=== PATIENT | male | born 1965 | race Caucasian/White ===

== ENCOUNTER → 2023-09-17 07:24 | Outpatient (REF) | payer MEDICARE, OTHER, SELFPAY ==
[2023-09-17 08:02] LABS: % Basophils 1.3 % (0-2); % Eosinophils 2.9 % (0-6); % Immature Granulocytes 2.1 % (0-0.5); % Lymphocytes 23.6 % (20.5-51.1); % Neutrophils 59.1 % (42.2-75.2); Absolute Basophils 0.1 10^3/uL (0-0.2); Absolute Eosinophils 0.3 10^3/uL (0-0.7); Absolute Immature Granulocytes 0.2 10^3/uL (0-0.05); Absolute Lymphocytes 2.4 10^3/uL (1.2-3.4); Absolute Monocytes 1.1 10^3/uL (0.1-0.6); Absolute Neutrophils 5.9 10^3/uL (1.4-6.5); Hemoglobin 19.4 g/dL (13.0-18.0); Mean Corp Hgb Conc. 35.3 g/dL (33.0-37.0); Mean Corpuscular Hgb 31.4 pg (27.0-31.0); Mean Corpuscular Volume 89.1 fL (80.0-94.0); Mean Platelet Volume 11.2 fL (7.4-10.4); Nucleated Red Blood Cells % 0 % (-); Platelet Count 151 10^3/uL (130-400); Red Blood Cell Count 6.17 10^6/uL (4.70-6.10); Red Cell Dist. Width 14.2 % (11.5-14.5)
[2023-09-17 08:30] LABS: ALT (SGPT) 32 U/L (0-50); AST (SGOT) 23 U/L (17-59); Alkaline Phosphatase 55 U/L (38-126); Blood Urea Nitrogen 16 mg/dl (9-20); Carbon Dioxide 21 mmol/L (22-30); Chloride 99 mmol/L (98-107); Glucose 170 mg/dl (70-99); HDL Cholesterol 28 mg/dl; LDL Cholesterol, Calculated 84 mg/dl; Potassium 4.5 mmol/L (3.5-5.1); Sodium 134 mmol/L (135-145); Total Bilirubin 0.7 mg/dl (0.2-1.3); Total Cholesterol 171 mg/dl (50-199); Total Protein 6.8 g/dl (6.3-8.2); Triglyceride 298 mg/dl (10-149); Very Low Density Lipoprotein 59 mg/dl (0-30); eGFR > 60.00
[2023-09-17 08:56] LABS: Glycohemoglobin (HgbA1c) 8.2 % (4.0-5.6)
[2023-09-17 09:04] LABS: Cortisol, Random 17.2 ug/dl
[2023-09-18 21:43] LABS: Adrenocorticotropic Hormone 18.1 pg/mL (7.2-63.3)
[2023-09-18 22:07] LABS: % Free Testosterone 2.5 % (1.6-2.9); Free Testosterone 170 pg/mL (47-244); Sex Hormone Binding Globulin 19 nmol/L (19-76); Total Testosterone 678 ng/dL (300-890)
== END ==
LOC: REG 07:24
PROVIDERS: ATTENDING PHYSICIAN Physician Assistant; FAMILY PHYSICIAN Family Medicine
DX: E29.1 Testicular hypofunction (principal); E11.9 Type 2 diabetes mellitus without complications; J44.9 Chronic obstructive pulmonary disease, unspecified
CPT/HCPCS: 36415; 80053; 80061; 82024; 82533; 83036; 83835; 84270; 84402; 84403; 85025

== ENCOUNTER → 2023-11-11 08:50 | Outpatient (REF) | payer MEDICARE, OTHER, SELFPAY ==
[2023-11-11 10:23] LABS: Hematocrit 54.8 % (39.0-52.0); Hemoglobin 19.1 g/dL (13.0-18.0); Mean Corp Hgb Conc. 34.9 g/dL (33.0-37.0); Mean Corpuscular Volume 88.8 fL (80.0-94.0); Mean Platelet Volume 11.5 fL (7.4-10.4); Platelet Count 188 10^3/uL (130-400); Red Blood Cell Count 6.17 10^6/uL (4.70-6.10); Red Cell Dist. Width 14.3 % (11.5-14.5); White Blood Cell Count 12.8 10^3/uL (4.8-10.8)
[2023-11-11 10:39] LABS: Blood Urea Nitrogen 29 mg/dl (9-20); Calcium 9.8 mg/dl (8.4-10.2); Carbon Dioxide 26 mmol/L (22-30); Chloride 97 mmol/L (98-107); Glucose 167 mg/dl (70-99); Potassium 4.2 mmol/L (3.5-5.1); Sodium 131 mmol/L (135-145); eGFR > 60.00
== END ==
LOC: SDSPAT 08:50
PROVIDERS: ATTENDING PHYSICIAN Surgery; FAMILY PHYSICIAN Family Medicine; OTHER PHYSICIAN Internal Medicine Cardiovascular Disease
DX: Z01.818 Encounter for other preprocedural examination (principal)
CPT/HCPCS: 36415; 80048; 85027; 93005

== ENCOUNTER 2023-11-12 09:11 | Outpatient (RCR) | payer MEDICARE, OTHER, SELFPAY | END 2023-11-12 23:59 | disposition home or self-care (01) | LOC: RPT 09:11 | PROVIDERS: ATTENDING PHYSICIAN Family Medicine | DX: R53.81 Other malaise (principal); Z73.6 Limitation of activities due to disability | CPT/HCPCS: 97110; 97112; 97163; 97530 ==

== ENCOUNTER 2023-11-19 10:05 | Outpatient (RCR) | payer MEDICARE, OTHER, SELFPAY | END 2023-11-19 11:06 | disposition home or self-care (01) | LOC: RPT 10:05 | PROVIDERS: ATTENDING PHYSICIAN Family Medicine | DX: R53.1 Weakness (principal); R53.81 Other malaise; Z73.6 Limitation of activities due to disability | CPT/HCPCS: 97110; 97112 ==

== ENCOUNTER → 2023-12-16 06:50 | Outpatient (REF) | payer MEDICARE, OTHER, SELFPAY ==
[2023-12-16 07:54] LABS: % Basophils 1.3 % (0-2); % Eosinophils 2.4 % (0-6); % Immature Granulocytes 1.3 % (0-0.5); % Lymphocytes 19.9 % (20.5-51.1); % Monocytes 11.2 % (1.7-9.3); % Neutrophils 63.9 % (42.2-75.2); Absolute Basophils 0.1 10^3/uL (0-0.2); Absolute Eosinophils 0.2 10^3/uL (0-0.7); Absolute Immature Granulocytes 0.1 10^3/uL (0-0.05); Absolute Monocytes 1.1 10^3/uL (0.1-0.6); Absolute Neutrophils 6.5 10^3/uL (1.4-6.5); Hematocrit 45.2 % (39.0-52.0); Mean Corp Hgb Conc. 35.4 g/dL (33.0-37.0); Mean Corpuscular Hgb 30.3 pg (27.0-31.0); Mean Corpuscular Volume 85.6 fL (80.0-94.0); Mean Platelet Volume 11.7 fL (7.4-10.4); Nucleated Red Blood Cells % 0 % (-); Platelet Count 221 10^3/uL (130-400); Red Blood Cell Count 5.28 10^6/uL (4.70-6.10); Red Cell Dist. Width 14.2 % (11.5-14.5); White Blood Cell Count 10.2 10^3/uL (4.8-10.8)
[2023-12-16 08:12] LABS: ALT (SGPT) 18 U/L (0-50); AST (SGOT) 16 U/L (17-59); Albumin 4.3 g/dl (3.5-5.0); Alkaline Phosphatase 57 U/L (38-126); Blood Urea Nitrogen 16 mg/dl (9-20); Calcium 9.8 mg/dl (8.4-10.2); Carbon Dioxide 23 mmol/L (22-30); Chloride 100 mmol/L (98-107); Glucose 236 mg/dl (70-99); HDL Cholesterol 31 mg/dl; LDL Cholesterol, Calculated 104 mg/dl; Potassium 4.6 mmol/L (3.5-5.1); Sodium 134 mmol/L (135-145); Total Bilirubin 0.3 mg/dl (0.2-1.3); Total Cholesterol 150 mg/dl (50-199); Total Protein 6.9 g/dl (6.3-8.2); Triglyceride 78 mg/dl (10-149); Very Low Density Lipoprotein 15 mg/dl (0-30); eGFR > 60.00
[2023-12-16 09:15] LABS: Glycohemoglobin (HgbA1c) 8.7 % (4.0-5.6)
[2023-12-16 11:23] LABS: Vitamin D, 25-OH*** 66.3 ng/mL (30-80)
[2023-12-18 04:28] LABS: % Free Testosterone 2.4 % (1.6-2.9); Free Testosterone 185 pg/mL (47-244); Sex Hormone Binding Globulin 22 nmol/L (19-76); Total Testosterone 764 ng/dL (300-890)
== END ==
LOC: REG 06:50
PROVIDERS: ATTENDING PHYSICIAN Internal Medicine Endocrinology, Diabetes & Metabolism; FAMILY PHYSICIAN Family Medicine
DX: E29.1 Testicular hypofunction (principal); E11.65 Type 2 diabetes mellitus with hyperglycemia; I10 Essential (primary) hypertension; E55.9 Vitamin D deficiency, unspecified
CPT/HCPCS: 36415; 80053; 80061; 82306; 83036; 84270; 84402; 84403; 85025

== ENCOUNTER → 2024-01-27 09:52 | Outpatient (REF) | payer MEDICARE, OTHER, SELFPAY | LOC: HWEVLT 09:52 | PROVIDERS: ATTENDING PHYSICIAN Radiology Vascular & Interventional Radiology | DX: I83.893 Varicose veins of bilateral lower extremities with other complications (principal) | CPT/HCPCS: 93970 ==

== ENCOUNTER → 2024-03-29 06:55 | Outpatient (REF) | payer MEDICARE, OTHER, SELFPAY ==
[2024-03-29 07:39] LABS: % Basophils 0.9 % (0-2); % Eosinophils 2.1 % (0-6); % Immature Granulocytes 1.4 % (0-0.5); % Lymphocytes 22.3 % (20.5-51.1); % Monocytes 12.8 % (1.7-9.3); % Neutrophils 60.5 % (42.2-75.2); Absolute Basophils 0.1 10^3/uL (0-0.2); Absolute Eosinophils 0.2 10^3/uL (0-0.7); Absolute Immature Granulocytes 0.2 10^3/uL (0-0.05); Absolute Lymphocytes 2.6 10^3/uL (1.2-3.4); Absolute Monocytes 1.5 10^3/uL (0.1-0.6); Hematocrit 51.5 % (39.0-52.0); Hemoglobin 18.5 g/dL (13.0-18.0); Mean Corp Hgb Conc. 35.9 g/dL (33.0-37.0); Mean Corpuscular Hgb 30.1 pg (27.0-31.0); Mean Corpuscular Volume 83.9 fL (80.0-94.0); Mean Platelet Volume 11.3 fL (7.4-10.4); Nucleated Red Blood Cells % 0 % (-); Platelet Count 249 10^3/uL (130-400); Red Blood Cell Count 6.14 10^6/uL (4.70-6.10); Red Cell Dist. Width 14.4 % (11.5-14.5); White Blood Cell Count 11.6 10^3/uL (4.8-10.8)
[2024-03-29 08:33] LABS: PSA, Total - Screen 0.66 ng/ml (0.0-4.0)
[2024-03-29 08:45] LABS: ALT (SGPT) 22 U/L (0-50); AST (SGOT) 23 U/L (17-59); Alkaline Phosphatase 79 U/L (38-126); Blood Urea Nitrogen 30 mg/dl (9-20); Calcium 10.8 mg/dl (8.4-10.2); Carbon Dioxide 23 mmol/L (22-30); Chloride 102 mmol/L (98-107); Glucose 195 mg/dl (70-99); HDL Cholesterol 32 mg/dl; LDL Cholesterol, Calculated 142 mg/dl; Potassium 4.6 mmol/L (3.5-5.1); Sodium 137 mmol/L (135-145); Total Bilirubin 1.3 mg/dl (0.2-1.3); Total Cholesterol 204 mg/dl (50-199); Total Protein 7.9 g/dl (6.3-8.2); Triglyceride 151 mg/dl (10-149); Very Low Density Lipoprotein 30 mg/dl (0-30); eGFR > 60.00
[2024-03-29 10:53] LABS: Glycohemoglobin (HgbA1c) 7.5 % (4.0-5.6)
== END ==
LOC: REG 06:55
PROVIDERS: ATTENDING PHYSICIAN Physician Assistant; FAMILY PHYSICIAN Family Medicine
DX: E29.1 Testicular hypofunction (principal); E11.65 Type 2 diabetes mellitus with hyperglycemia; R97.20 Elevated prostate specific antigen [PSA]; Z12.5 Encounter for screening for malignant neoplasm of prostate
CPT/HCPCS: 36415; 80053; 80061; 83036; 85025; G0103

== ENCOUNTER → 2024-06-15 08:08 | Outpatient (REF) | payer MEDICARE, OTHER, SELFPAY | LOC: HWEVLT 08:08 | PROVIDERS: ATTENDING PHYSICIAN Radiology Diagnostic Radiology | DX: I83.892 Varicose veins of left lower extremity with other complications (principal) | CPT/HCPCS: 36478; C1769 ==

== ENCOUNTER → 2024-06-28 11:02 | Outpatient (REF) | payer MEDICARE, OTHER, SELFPAY | LOC: HWEVLT 11:02 | PROVIDERS: ATTENDING PHYSICIAN Radiology Vascular & Interventional Radiology | DX: I83.892 Varicose veins of left lower extremity with other complications (principal) | CPT/HCPCS: 93971 ==

== ENCOUNTER → 2024-08-10 07:34 | Outpatient (REF) | payer MEDICARE, OTHER, SELFPAY ==
[2024-08-10 09:12] LABS: % Basophils 1.2 % (0-2); % Eosinophils 2.5 % (0-6); % Immature Granulocytes 1.5 % (0-0.5); % Lymphocytes 22.9 % (20.5-51.1); % Monocytes 11.3 % (1.7-9.3); % Neutrophils 60.6 % (42.2-75.2); Absolute Basophils 0.1 10^3/uL (0-0.2); Absolute Eosinophils 0.2 10^3/uL (0-0.7); Absolute Immature Granulocytes 0.1 10^3/uL (0-0.05); Absolute Lymphocytes 1.7 10^3/uL (1.2-3.4); Absolute Monocytes 0.9 10^3/uL (0.1-0.6); Absolute Neutrophils 4.6 10^3/uL (1.4-6.5); Hematocrit 49.6 % (39.0-52.0); Hemoglobin 17.5 g/dL (13.0-18.0); Mean Corp Hgb Conc. 35.3 g/dL (33.0-37.0); Mean Corpuscular Hgb 30.3 pg (27.0-31.0); Mean Platelet Volume 11.1 fL (7.4-10.4); Nucleated Red Blood Cells % 0 % (-); Platelet Count 203 10^3/uL (130-400); Red Blood Cell Count 5.77 10^6/uL (4.70-6.10); Red Cell Dist. Width 13.4 % (11.5-14.5); White Blood Cell Count 7.5 10^3/uL (4.8-10.8)
[2024-08-10 09:45] LABS: Protein/creatinine Ratio 0.1; Urine Protein 9 mg/dl
[2024-08-10 09:50] LABS: Microalbumin, Random Urine 3.6 mg/dl (0.6-1.7); Microalbumin/creatinine Ratio 30.3 mg/g
[2024-08-10 10:36] LABS: Vitamin D, 25-OH*** 43.7 ng/mL (30-80)
[2024-08-10 10:41] LABS: Glycohemoglobin (HgbA1c) 10.1 % (4.0-5.6)
[2024-08-10 10:50] LABS: PSA, Total - Screen 0.29 ng/ml (0.0-4.0)
[2024-08-10 10:58] LABS: ALT (SGPT) 26 U/L (0-50); AST (SGOT) 20 U/L (17-59); Albumin 4.7 g/dl (3.5-5.0); Alkaline Phosphatase 54 U/L (38-126); Blood Urea Nitrogen 17 mg/dl (9-20); Calcium 10.1 mg/dl (8.4-10.2); Carbon Dioxide 20 mmol/L (22-30); Chloride 98 mmol/L (98-107); Glucose 285 mg/dl (70-99); HDL Cholesterol 32 mg/dl; LDL Cholesterol, Calculated 83 mg/dl; Potassium 4.7 mmol/L (3.5-5.1); Sodium 135 mmol/L (135-145); Total Bilirubin 0.5 mg/dl (0.2-1.3); Total Cholesterol 142 mg/dl (50-199); Total Protein 7.5 g/dl (6.3-8.2); Triglyceride 137 mg/dl (10-149); Very Low Density Lipoprotein 27 mg/dl (0-30); eGFR > 60.00
[2024-08-11 09:17] LABS: % Free Testosterone 2.2 % (1.6-2.9); Free Testosterone 12 pg/mL (47-244); Sex Hormone Binding Globulin 19 nmol/L (19-76); Total Testosterone 54 ng/dL (300-720)
== END ==
LOC: REG 07:34
PROVIDERS: ATTENDING PHYSICIAN Physician Assistant
DX: E11.65 Type 2 diabetes mellitus with hyperglycemia (principal); E29.1 Testicular hypofunction; R97.20 Elevated prostate specific antigen [PSA]; E55.9 Vitamin D deficiency, unspecified
CPT/HCPCS: 36415; 80053; 80061; 82043; 82306; 82570; 83036; 84156; 84270; 84402; 84403; 85025; G0103

== ENCOUNTER 2024-08-31 23:46 | Inpatient (IN) | payer MEDICARE, OTHER, SELFPAY ==
[2024-08-31 18:17] VITALS: BP 148/85
[2024-08-31 18:47] LABS: % Basophils 0.6 % (0-2); % Eosinophils 0.1 % (0-6); % Immature Granulocytes 0.7 % (0-0.5); % Lymphocytes 6.4 % (20.5-51.1); % Neutrophils 83.2 % (42.2-75.2); Absolute Basophils 0.1 10^3/uL (0-0.2); Absolute Immature Granulocytes 0.1 10^3/uL (0-0.05); Absolute Lymphocytes 0.6 10^3/uL (1.2-3.4); Absolute Monocytes 0.9 10^3/uL (0.1-0.6); Absolute Neutrophils 8.1 10^3/uL (1.4-6.5); Hemoglobin 15.9 g/dL (13.0-18.0); Mean Corp Hgb Conc. 36.1 g/dL (33.0-37.0); Mean Corpuscular Hgb 31.2 pg (27.0-31.0); Mean Corpuscular Volume 86.3 fL (80.0-94.0); Mean Platelet Volume 11.6 fL (7.4-10.4); Nucleated Red Blood Cells % 0 % (-); Platelet Count 125 10^3/uL (130-400); Red Cell Dist. Width 13.2 % (11.5-14.5); White Blood Cell Count 9.8 10^3/uL (4.8-10.8)
[2024-08-31 18:57] LABS: ALT (SGPT) 31 U/L (0-50); AST (SGOT) 30 U/L (17-59); Albumin 4.5 g/dl (3.5-5.0); Alkaline Phosphatase 59 U/L (38-126); Blood Urea Nitrogen 17 mg/dl (9-20); Calcium 9.1 mg/dl (8.4-10.2); Carbon Dioxide 21 mmol/L (22-30); Chloride 96 mmol/L (98-107); Glucose 276 mg/dl (70-99); Potassium 4.2 mmol/L (3.5-5.1); Sodium 130 mmol/L (135-145); Total Bilirubin 0.6 mg/dl (0.2-1.3); Total Protein 7.3 g/dl (6.3-8.2); eGFR > 60.00
[2024-08-31 19:03] LABS: COVID-19 Antigen Negative (Negative)
[2024-08-31 19:06] LABS: NT-proBNP 343 pg/ml
[2024-08-31] MEDS: TYLENOL 1000 MG PO (21:10)
[2024-08-31] MEDS: VIBRAMYCIN 100 MG PO (21:10)
--- NOTE | 2024-08-31 21:10 | ED.GENMED ---
History of Present Illness
General
Chief Complaint: Breathing Problem
Source: patient
Exam Limitations: none
Time Seen by Provider: 08/31/24 20:53
Nursing documentation reviewed up to this point in time: agreed with
History of Present Illness
History of Present Illness:
59-year-old male with 2 days of fever cough congestion malaise he is a smoker roommate sick with similar, no abdominal pain eating and drinking okay
Past History
Past History
ED Past Medical History: Asthma, COPD, GERD, HTN, Hypercholesterolemia, NIDDM, Renal failure (On Dialysis in fall 2016 for 2 mos, renal insuff), Psychiatric (depression, PTSD) and Other (Rhabdomyalysis, Overdose, Intestinal obstruction, PNA, UTI,
Ulcers, TBI)
ED Past Surgical History: Other (Unknown)
Patient has exhibited threatening behavior?: No
PSI?: No
Social History
Tobacco: Smoker
Alcohol: None
Drug: Cocaine and Narcotics
Personal: Partner
Living: with roommate
Employment: Retired
Family History
Family History: Other
Review of Systems
Review of Systems
All Other Systems: ROS reviewed and negative except as documented in HPI and ROS
Constitutional: Reports fever and fatigue
Respiratory: Reports cough and trouble breathing
ABD/GI: Reports no symptoms
: Reports no symptoms
Musculoskeletal: Reports no symptoms
Skin: Reports no symptoms
Neurological: Reports weakness
Hematologic/Lymphatic: Reports no symptoms
Phy Exam
Physical Exam
Physical Exam:
Physical Exam
General: 59-year-old male coughing warm to touch audibly wheeze
Neck: Lips are dry
Heart: Tacky cardiac
Lungs: Wheeze rhonchi diffusely worse of the right
Abdomen: Not tender
Neuro: alert and oriented. no focal neurological deficits
Skin: no rash
Psychiatric: well kept. interactive and cooperative
Extremities: no edema. no calf tenderness
Scores
Heart Failure Risk
Heart Failure Risk Score: Not Applicable
Sepsis
Sepsis Screening
Sepsis Assessment: Sepsis Ruled Out
Sepsis Screen
Sepsis Screen: Sepsis Ruled Out
Date: 08/31/24
Time: 21:45
Course
Orders/Labs/Results
Orders:
Orders
08/31/24 18:20
Chest [CR Chest - 2 Views ] Urgent
Comment:
Reason For Exam: cough
08/31/24 18:33
Complete Blood Count/With Diff Urgent
Comprehensive Metabolic Panel Urgent
NT-proBNP Urgent
08/31/24 18:35
COVID-19 Antigen Urgent
Source: Nasal Swab
Influenza A+B Rapid Molecular Urgent
SANDRA Source: Nasal Swab
Specimen Description:
08/31/24 21:03
Cardiac Monitoring- Treatment ONCE
IV Insert/Care/Rem.- Treatment PRN
0.9% Sodium Chloride 1000 ml [Nss] 1,000 ml IV BOLUS
Acetaminophen [Tylenol] 1,000 mg PO NOW STA
CefTRIAXone [Rocephin] 1,000 mg IV NOW STA
Dexamethasone Sod Phosphate [Decadron] 10 mg IV NOW STA
Doxycycline [Vibramycin] 100 mg PO NOW STA
Ipratropium/Albuterol Sulfate [Duoneb] 3 ml INH R NOW STA
08/31/24 21:22
Lactic Acid Q4H
Comment: CANCEL 2nd LACTIC ACID IF 1st LACTIC ACID IS LESS THAN 2
Blood Culture Q30M
SANDRA Source: Blood/Venous
Specimen Description:
08/31/24 21:45
Blood Culture Q30M
SANDRA Source: Blood/Venous
Specimen Description:
09/01/24 01:15
Lactic Acid Q4H
Comment: CANCEL 2nd LACTIC ACID IF 1st LACTIC ACID IS LESS THAN 2
Abnormal Lab Results
08/31/24
18:33
MCH 31.2 H pg
(27.0-31.0)
Plt Count 125 L 10^3/uL
(130-400)
MPV 11.6 H fL
(7.4-10.4)
Abs Immat Gran (auto) 0.1 H 10^3/uL
(0-0.05)
Absolute Neuts (auto) 8.1 H 10^3/uL
(1.4-6.5)
Absolute Lymphs (auto) 0.6 L 10^3/uL
(1.2-3.4)
Absolute Monos (auto) 0.9 H 10^3/uL
(0.1-0.6)
Immature Gran % 0.7 H %
(0-0.5)
Neutrophils % 83.2 H %
(42.2-75.2)
Lymphocytes % 6.4 L %
(20.5-51.1)
Sodium 130 L mmol/L
(135-145)
Chloride 96 L mmol/L
(98-107)
Carbon Dioxide 21 L mmol/L
(22-30)
Glucose 276 H mg/dl
(70-99)
08/31/24 18:33
08/31/24 18:33
Vital Signs
Initial and Last Documented VS:
Initial Vital Signs
Temp Pulse Resp BP Pulse Ox
100.4 F H 118 26 148/85 91
08/31/24 18:17 08/31/24 18:17 08/31/24 18:17 08/31/24 18:17 08/31/24 18:17
Last Documented Vital Signs
Temp Pulse Resp BP Pulse Ox
100.4 F H 108 31 148/85 91
08/31/24 18:17 08/31/24 21:27 08/31/24 21:27 08/31/24 18:17 08/31/24 21:28
MDM/Problems Addressed
Differential Diagnosis Includes:
Pneumonia bronchitis influenza viral syndrome
MDM/Problems Addressed:
Cough shortness of breath with
Chronic conditions affecting care: HTN, Asthma and Neurological disorder
Acute Exacerbation and/or Progression of Chronic Illness: HTN, Asthma and Neurological disorder
*Radiology
Radiology exam reviewed: radiology read reviewed
*Pulse Oximetry
Patient hypoxic: yes
Comment: 87
*Sewer Separation Designer Interpretation
Rate: tachycardiac
Interpretation: abnormal
Heart Rate: 118
Rhythm: sinus
*Critical Care Note
Total Time (30-74mins, 75-104mins- exclusive of procedures): 15
Update Note
Update Note:
Patient with multiple chronic conditions with community-acquired pneumonia order line pulse ox plan will be nebs fluids steroids and antibiotics follow closely
9:40 PM reevaluation patient still tachypneic tachycardic desaturated to 87% on room that will require admission
ED Attending Note
-
Portions of this chart may have been created with voice recognition software.� Occasional wrong word or��sound alike� substitutions may have occurred due to the inherent limitations of voice recognition software.
Discharge Plan
Departure
Patient Disposition: Admit
Date of Disposition: 08/31/24
Time of Disposition: 21:44
Admit to: Med/Surg
Presentation/result/management discussed w/ accepting MD/DO: Hospitalist
Patient with high blood pressure during this ER visit?: No
Condition: Fair
Covid-19: Negative COVID-19
Discharge Problem:
Chronic obstructive pulmonary disease, Pneumonia, Acute respiratory failure with hypoxia
Prescriptions:
No Action
insulin lispro [Humalog KwikPen Insulin] 100 unit/mL Insulin Pen
10 unit SC AC
Janumet 50-1,000 mg Tablet
1 tab PO BID@0800,1700
testosterone cypionate 200 mg/mL Kit
400 mg IM Q2W
cyclobenzaprine 10 mg tablet
10 mg PO TID PRN (Reason: muscle spasms)
amlodipine 5 mg tablet
5 mg PO DAILY
aspirin 81 mg Tablet,Delayed Release (Dr/Ec)
81 mg PO DAILY
paroxetine HCl 30 mg tablet
30 mg PO DAILY
lorazepam 1 mg tablet
1 mg PO DAILY PRN (Reason: anxiety)
Patient Comments:
05/18/2023: last filled 01/12/23, 30 tabs for 30 days from [facility]
albuterol sulfate 90 mcg/actuation Hfa Aerosol Inhaler
2 inh INHALATION R Q4 PRN (Reason: sob/wheezing)
bupropion HCl 300 mg tablet extended release 24 hr
300 mg PO DAILY
buprenorphine-naloxone 8-2 mg film
2.5 film sublingual DAILY
Patient Comments:
05/18/2023: last filled 04/20/23, 75 film for 30 days from [facility]
Caplyta 42 mg capsule
42 mg PO DAILY
Patient Comments:
04/13/2023: last filled 02/12/23, 30 tabs for 30 days from [facility]
methylphenidate HCl [Concerta] 54 mg tablet extended release 24hr
54 mg PO DAILY PRN (Reason: focus)
Patient Comments:
05/18/2023: last filled 04/12/23, 30 tabs for 30 days from [facility]
tamsulosin 0.4 mg capsule
0.4 mg PO HS
budesonide-formoterol [Symbicort] 160-4.5 mcg/actuation HFA aerosol inhaler
2 puff INHALATION R BID
cefdinir 300 mg Capsule
300 mg PO Q12 3 Days Qty: 6 0RF
benzonatate 100 mg Capsule
200 mg PO TIDPRN PRN (Reason: cough) Qty: 7 0RF
Levemir FlexPen 100 unit/mL (3 mL) insulin pen
10 unit SC HS Qty: 15 0RF
prednisone 10 mg Tablet
See Rx Instructions .ROUTE .COMPLEX Qty: 30 0RF
Rx Instructions:
Take By Mouth:
40 mg daily x3 days, 30 mg daily x3 days,
20 mg daily x3 days, 10 mg daily x3 days.
Referrals:
UNKNOWN - PT DOES,NOT KNOW [Family Provider] -
Interventions
Interventions:
*Risk Screen - Suicide Last Done: 08/31/24 18:17
*General Assessment Last Done: 08/31/24 18:17
*Neglect/Abuse Screening Last Done: 08/31/24 18:17
ED- Fall Risk Assessment Last Done: 08/31/24 21:28
*ED COVID-19 Vaccine History Last Done: 08/31/24 18:17
ED- Cardiac Assessment Last Done: 08/31/24 21:28
ED- Pulmonary Assessment Last Done: 08/31/24 21:28
Discharge Date and Time
Print Language: FRISIAN
[2024-08-31] MEDS: DUONEB 3 ML INH (21:11)
[2024-08-31] MEDS: DECADRON 10 MG IV (21:23)
[2024-08-31] MEDS: NSS 1000 IV (21:23)
[2024-08-31] MEDS: ROCEPHIN 1000 MG IV (21:24)
[2024-08-31 21:27] VITALS: BP 120/75
[2024-08-31 21:28] VITALS: BMI 34.9
[2024-08-31 21:47] LABS: Lactic Acid 1.2 mmol/L (0.7-2.0)
[2024-08-31 22:00] VITALS: BP 128/76
[2024-08-31] MEDS: FLUSH (NSS) 1 FLUSH IV (22:11)
--- NOTE | 2024-08-31 22:17 | HPS.HSE ---
Family Physician
-
Family Physician: NOT KNOW UNKNOWN - PT DOES
Chief Complaint
-
fever, cough and congestion
History of Present Illness
Mr. Lenin Saldivar is a 59 man, current smoker with hx asthma/COPD, GERD, HTN, HLD, NIDDDM, CKD, depression presents to the ER with fevers, cough and congestion.
He smokes 1/2 PPD and is interested in quitting. + chills, no fevers. + productive cough, feels mucus is stuck. No chest pain, + chest tightness. No nausea/vomiting/diarrhea. No abdominal pain. Inhalers at home weren't helping, feels better
here int he ER. No LE swelling.
Medical History
Past Medical History
Past Medical History: Reports Other (asthma, COPD, sleep apnea, hypertension, GERD, hypercholesteremia, IDDM, depression, PTSD, obesity, chronic pain from chronic Lyme disease, BPH, opiate dependence)
Past Surgical History: Reports None
Social History
Tobacco: Smoker (1 pack/day for 40+ years)
Alcohol: None
Drug: None
Living: With Roomate
Family History
Family History: Not pertinent
Allergies / Home Medications
Allergies reflects when Allergies were last updated in [facility].
Home Medications with original date entered in [facility]
Allergy/Medication List:
Allergies
Allergy/AdvReac Type Severity Reaction Status Date / Time
adhesive Allergy itching/rash Verified 08/31/24 18:19
- paper
tape
gabapentin Allergy Swelling Verified 08/31/24 18:19
hydrochlorothiazide Allergy blisters Verified 08/31/24 18:19
on head
pregabalin Allergy scabs on Verified 08/31/24 18:19
head
Home Medications
insulin lispro 100 unit/mL subcutaneous pen (Humalog KwikPen (U-100) Insulin) 14 unit SC AC Diabetes 07/17/22
sitagliptin phosphate 50 mg-metformin 1,000 mg tablet (Janumet) 1 tab PO BID@0800,1700 Diabetes 07/17/22
albuterol sulfate 90 mcg/actuation aerosol inhaler 2 inh inhalation R Q4 PRN sob/wheezing 03/11/23
amlodipine 5 mg tablet 5 mg PO DAILY Blood Pressure 03/11/23
aspirin 81 mg tablet,delayed release 81 mg PO DAILY Blood Clot Prevention/Tx 03/11/23
buprenorphine 8 mg-naloxone 2 mg sublingual film 2.5 film sublingual DAILY Substance Abuse 03/11/23
bupropion HCl 300 mg 24 hr tablet, extended release 300 mg PO DAILY Depression 03/11/23
cyclobenzaprine 10 mg tablet 10 mg PO TID PRN muscle spasms 03/11/23
lorazepam 1 mg tablet 1 mg PO DAILY PRN anxiety 03/11/23
lumateperone 42 mg capsule (Caplyta) 42 mg PO DAILY Depression 03/11/23
paroxetine HCl 30 mg tablet 30 mg PO DAILY Depression 03/11/23
budesonide-formoterol HFA 160 mcg-4.5 mcg/actuation aerosol inhaler (Symbicort) 2 puff inhalation R BID asthma/COPD 05/18/23
methylphenidate HCl 54 mg tablet,extended release 24 hr (Concerta) 54 mg PO DAILY PRN focus 05/18/23
insulin detemir U-100 100 unit/mL (3 mL) subcutaneous pen (Levemir FlexPen) 10 unit (0.1 mL) SC HS #15 mL 05/23/23
Review of Systems
-
History Source: Patient
A 12 point ROS was completed and negative except as noted: Yes
Physical Exam
Vital Signs
Vital Signs
Temp Pulse Resp BP Pulse Ox
100.4 F H 107 27 128/76 90
08/31/24 18:17 08/31/24 22:00 08/31/24 22:00 08/31/24 22:00 08/31/24 22:00
Physical Exam
General: Other (appears fatigued, mildly tachypneic )
HEENT: PERRLA
Respiratory: Wheezes
Cardiac: S1/S2 and Regular Rhythm
GI: Soft and Non Tender
Musculoskeletal: No Edema
Skin: Warm and Dry; No Rash
Neuro: AO x 3
Psych: Calm
Laboratory Results
-
08/31/24 18:33
08/31/24 18:33
Laboratory Results
Lactic Acid 1.2 mmol/L (0.7-2.0) 08/31/24 21:22
Total Bilirubin 0.6 mg/dl (0.2-1.3) 08/31/24 18:33
AST 30 U/L (17-59) 08/31/24 18:33
ALT 31 U/L (0-50) 08/31/24 18:33
Alkaline Phosphatase 59 U/L (38-126) 08/31/24 18:33
Data Reviewed
-
Diagnostic Radiology: Report Reviewed by me
Lab Data: Labs Reviewed by me
Impression/Plan
-
Mr. Lenin Saldivar is a 59 man, current smoker with hx asthma/COPD, GERD, HTN, HLD, NIDDM, CKD, depression presents to the ER with fevers, cough and congestion.
Triage VS: T 100.4, P 118, RR 26, BP 148/85, SpO2 91%
LABS: WBC 9.8, Hg 15.9, PLT 125, Na 130, K+ 4.2, Cl 96, CO2 21, BUN 17, Cr 0.9, glucose 276, Lactate 1.2, T. Bili 0.6, AST 30, ALT 31, Alk Phos 59, BNP 343
Covid negative
Influenza Negative
CXR
IMPRESSION:
Right basilar pneumonia.
MAR: Tylenol, Ceftriaxone/Doxy, Decadron, Duonebs
Acute COPD Exacerbation
CAP
Daily Smoker
Hypoxic Resp Failure requiring 5L
-admit to telemetry
-O2 support as needed
-IV Decadron, Duonebs
-Ceftriaxone/Doxy
-Acapella, Mucinex
-Sputum Culture
-patient interested in stopping smoking, refusing nicotine patch here
IDDM
-STRETCHER DRIER OPERATOR Levemir 10 units hs; lower dose lispro to start 5 units AC - adjust as needed
-ISS
-hold STRETCHER DRIER OPERATOR Janumet for now
Hyponatremia
-follow up urine studies
-fluid restrict for now
Essential HTN - STRETCHER DRIER OPERATOR Amlodipine
GERD
Depression - STRETCHER DRIER OPERATOR Paroxetine, Bupropion, Caplyta; PRN Lorazepam
Hx opiate dependence - STRETCHER DRIER OPERATOR Suboxone
DVT PPx Lovenox subQ
FULL CODE
76 minutes spent on patient care
[2024-08-31 23:00] VITALS: BP 132/79
[2024-09-01] VITALS (13 sets, daily range): BP systolic 101–154; BP diastolic 51–86; BMI 34.7; BMI 34.9
[2024-09-01] MEDS: MUCINEX PO (03:05)
[2024-09-01] MEDS: DECADRON 4 MG IV ×3 (06:36→22:11)
[2024-09-01 06:51] LABS: % Basophils 0.5 % (0-2); % Immature Granulocytes 0.6 % (0-0.5); % Lymphocytes 8.9 % (20.5-51.1); % Monocytes 7.4 % (1.7-9.3); % Neutrophils 82.6 % (42.2-75.2); Absolute Immature Granulocytes 0.1 10^3/uL (0-0.05); Absolute Lymphocytes 0.7 10^3/uL (1.2-3.4); Absolute Monocytes 0.6 10^3/uL (0.1-0.6); Absolute Neutrophils 6.8 10^3/uL (1.4-6.5); Hematocrit 44.2 % (39.0-52.0); Hemoglobin 15.5 g/dL (13.0-18.0); Mean Corp Hgb Conc. 35.1 g/dL (33.0-37.0); Mean Corpuscular Hgb 30.6 pg (27.0-31.0); Mean Corpuscular Volume 87.4 fL (80.0-94.0); Mean Platelet Volume 11.6 fL (7.4-10.4); Nucleated Red Blood Cells % 0 % (-); Platelet Count 121 10^3/uL (130-400); Red Blood Cell Count 5.06 10^6/uL (4.70-6.10); Red Cell Dist. Width 13.2 % (11.5-14.5); White Blood Cell Count 8.3 10^3/uL (4.8-10.8)
[2024-09-01 07:29] LABS: Blood Urea Nitrogen 18 mg/dl (9-20); Calcium 8.7 mg/dl (8.4-10.2); Carbon Dioxide 23 mmol/L (22-30); Chloride 100 mmol/L (98-107); Estimated Creatinine Clearance > 125 ml/min; Glucose 343 mg/dl (70-99); Sodium 136 mmol/L (135-145); eGFR > 60.00
[2024-09-01 07:36] LABS: Potassium 4.7 mmol/L (3.5-5.1)
[2024-09-01] MEDS: NORVASC 5 MG PO (08:25)
[2024-09-01] MEDS: ASPIR LOW (ENTERIC COATED) 81 MG PO (08:25)
[2024-09-01] MEDS: VIBRAMYCIN 100 MG PO ×2 (08:25→20:03)
[2024-09-01] MEDS: MUCINEX 600 MG PO ×2 (08:25→20:02)
[2024-09-01] MEDS: WELLBUTRIN XL (24 hour extended release) 300 MG PO (08:26)
[2024-09-01] MEDS: PAXIL 30 MG PO (08:26)
[2024-09-01] MEDS: DUONEB 3 ML INH ×4 (08:26→19:52)
[2024-09-01] MEDS: SUBUTEX 20 MG SL (08:27)
[2024-09-01] MEDS: SYMBICORT 160/4.5 MCG INHALER 2 PUFF INH ×2 (08:27→19:52)
[2024-09-01 08:56] LABS: Osmolality Urine 615 mOsm/kg (300-900)
[2024-09-01 09:06] LABS: Urine Sodium 74 mmol/L (30-90)
[2024-09-01 09:07] LABS: Glucose - Point of Care 282 mg/dl (70-99)
[2024-09-01] MEDS: NOVOLOG FLEXPEN 14 UNITS SC ×3 (09:11→18:23)
[2024-09-01] MEDS: NOVOLOG FLEXPEN-LOW RESISTANCE 3 UNITS SC (09:11)
[2024-09-01 12:57] LABS: Glucose - Point of Care 339 mg/dl (70-99)
[2024-09-01] MEDS: NOVOLOG FLEXPEN-LOW RESISTANCE 4 UNITS SC (13:00)
--- NOTE | 2024-09-01 14:04 | PTCARENOTE ---
Received patient from [facility]29 into [facility], pt is 93% on 5L NC, blood glucose was checked for lunch time, pt oriented to new room by RN. PT denies pain ans shortness of breath at the moment.
--- NOTE | 2024-09-01 15:43 | W.PN.HOSP.TC ---
Today's Communication/Plan
-
abx
steroids
wean o2
insulin titration
Assessment / Plan
Assessment / Plan
Physical Exam
General: NAD
HEENT: PERRLA
Respiratory: Exp Wheezes
Cardiac: S1/S2 and Regular Rhythm
GI: Soft and Non Tender
Musculoskeletal: No Edema
Skin: Warm and Dry; No Rash
Neuro: AO x 3
Psych: Calm
Acute COPD Exacerbation
CAP
Daily Smoker
Hypoxic Resp Failure requiring 5L
-admit to telemetry
-O2 support as needed
-IV Decadron, Duonebs
-Ceftriaxone/Doxy
-Acapella, Mucinex
-Sputum Culture
-patient interested in stopping smoking, refusing nicotine patch here
IDDM
-ASSOCIATE CIVIL ENGINEER Levemir increase to 12 and aspart 14 as home dose - monitor for today
-ISS
-hold ASSOCIATE CIVIL ENGINEER Janumet for now
Hyponatremia
-follow up urine studies
-fluid restrict for now
-improving
Essential HTN - ASSOCIATE CIVIL ENGINEER Amlodipine
GERD
Depression - ASSOCIATE CIVIL ENGINEER Paroxetine, Bupropion, Caplyta; PRN Lorazepam
Hx opiate dependence - ASSOCIATE CIVIL ENGINEER Suboxone
DVT PPx Lovenox subQ
FULL CODE
Anticipated Discharge: > 48 hours
Subjective/Interval History
-
Date of Service: September 01, 2024
Still with expiratory wheezing
Objective Data
-
Labs:
Laboratory Results
09/01/24
06:35
WBC 8.3
Hgb 15.5
Hct 44.2
Plt Count 121 L
Sodium 136
Potassium 4.7
Chloride 100
Carbon Dioxide 23
BUN 18
Creatinine 0.8
Glucose 343 H
Calcium 8.7
Vital Signs:
Vital Signs
Temp Pulse Resp BP Pulse Ox
97.9 F 87 20 147/69 93
09/01/24 11:29 09/01/24 11:45 09/01/24 11:45 09/01/24 11:29 09/01/24 13:57
I&O
08/31/24 09/01/24 09/02/24
06:59 06:59 06:59
Intake Total 480 / 480
Output Total 650 / 650
Balance -650 / -650 480 / 480
Review of Systems
-
History Source: Patient
All other systems: Not reviewed unless documented
Physical Exam
-
General: Well Developed, Well Nourished, Comfortable, Conversant and Obese
HEENT: Oxygen (3-4L NC)
Respiratory: Clear to Auscultation and Non Labored Respirations; Negative Wheezes or Accessory Resp Muscle Use
Cardiac: Regular Rhythm and S1/S2; Negative Murmur or Rub
GI: Soft, Nontender and Nondistended
Neuro: Awake, Alert and Oriented
Psych: Calm and Intact Judgement/Insight
Data Reviewed
-
Diagnostic Radiology: Image personally visualized and interpreted and Report Reviewed by me
Labs: Labs Reviewed by me
[2024-09-01] MEDS: TYLENOL 650 MG PO (16:16)
--- NOTE | 2024-09-01 16:45 | PN.CDI ---
CDI
- -
CDI:
Physician Documentation Request
Admit Date: 08/31/24 23:46
Dear Doctor Bo,
Clinical Indicators:
Documentation includes the diagnosis of malnutrition. Other clinical indicators are:
09/01 RD note/assessment:-'CBW: 126 lbs 8 oz BMI 17.6 underweight range... reflective of a 38 lb (23%) in < 1 year
significant'
-'During visit RD able to visualize protrusion of clavicula, buccal wasting, temporal wasting and
orbital area sunken in.'
-'With weight loss of > 20% in 1 year, < 75% estimated needs > 1 month and observed
muscle and fat wasting. Pt meets AND/ASPEN criteria for severe protein calorie
malnutrition. '
Please specify the degree of the protein calorie malnutrition:
Severe Protein Calorie Malnutrition
Other (please specify)
Oran Criteria (ACP Hospitalist 2017)
2 or more criteria must be present for either
non severe or severe malnutrition
Note that the criteria differs related to the
presence of an acute or chronic illness
Acute Illness Chronic Illness
Energy Intake Non Severe: <75% for >7 days Non Severe: <75% for >1 month
Severe: <50% for >5 days Severe: <75% for >1 month
Weight Loss Non Severe: 1-2% over 1 week Non Severe: 5% over 1 month
5% over 1 month 7.5% over 3 months
7.5% over 3 months 10% over 6 months
1 year N/A 20% over 1 year
Severe: >2% over 1 week Severe: >5% over 1 month
>5% over 1 month >7.5% over 3 months
>7.5% over 3 months >10% over 6 months
1 year N/A >20% over 1 year
Body Fat Non Severe: Mild Decrease Non Severe: Mild Loss
Severe: Moderate Decrease Severe: Severe Loss
Muscle Mass Non Severe: Mild Decrease Non Severe: Mild Loss
Severe: Moderate Decrease Severe: Severe Loss
Fluid Accumulation Non Severe: Mild Accumulation Non Severe: Mild Accumulation
Severe: Moderate to severe Severe: Moderate to severe
accumulation accumulation
Reduced Engineering Lab Technician Strength Non Severe: N/A Non Severe: N/A
Severe: Measurably reduced Severe: Measurably reduced
Additional criteria that can be used to Determine if Mild or Moderate Malnutrition (Merck Manual 2018)
Mild Moderate Severe
Albumin gm/dl <3.0 gm/dl <2.5 gm/dl <2.0 gm/dl
Pre Albumin mg/dl <15 gm/dl <10 mg/dl <5.0 mg/dl
BMI <18.5 <17 <16
Use of terms such as suspected, likely, concern for, or probable (associated with a specific diagnosis that is being evaluated, monitored, or treated as if it exists) are acceptable and can be coded in the inpatient setting, when documented at the
time of discharge.
Thank you,
Rebecca Pereira RN BSN
CDI Specialist
available via tiger text
Please use your independent medical judgment in providing your response.
--- NOTE | 2024-09-01 16:58 | PN.CDI ---
CDI
- -
CDI:
Physician Documentation Request
Admit Date: 08/31/24 23:46
Dear Doctor Wendy,
Clinical Indicators:
Patient admitted with CAP, acute hypoxic respiratory failure and COPD exacerbation.
08/31 H & P,'...presents to the ER with fevers... + chills...'
HR/RR trend on admission:
08/31/24
18:17 08/31/24
21:45 08/31/24
22:30
Pulse 118 108 107
Resp Rate 26 28 24
08/31/24
23:00 08/31/24
23:30 09/01/24
00:00
Pulse 107 104 102
Resp Rate 20 26 24
Please clarify which of the following most accurately describes the status of the patient's infection:
Sepsis, POA
- Systemic manifestations of infection, with 2 or more SIRS criteria which include:
- Fever >100.4 degrees F or hypothermia < 96.8 degrees F
- Leukocytosis - WBC > 12,000 or leukopenia - WBC < 4,000 or > 10% bands
- Tachycardia > 90 beats per minute
- Tachypnea - RR > 20 breaths per minute or PaCO2 , 32mmHg
Source: Merck Manual 2013
Severe Sepsis with associated respiratory failure, POA
CAP Only, Without Systemic Illness
Other
Use of terms such as suspected, likely, concern for, or probable (associated with a specific diagnosis that is being evaluated, monitored, or treated as if it exists) are acceptable and can be coded in the inpatient setting, when documented at the
time of discharge.
Thank you,
Rebecca Pereira RN BSN
CDI Specialist
available via tiger text
Please use your independent medical judgment in providing your response.
--- NOTE | 2024-09-01 17:30 | PTCARENOTE ---
Pt being transported to [facility], on 5L NC, pt ordered dinner, voiding via urinal, tylenol given for mild pain
[2024-09-01 18:15] LABS: Glucose - Point of Care 329 mg/dl (70-99)
[2024-09-01] MEDS: LOVENOX 40 MG SC (18:22)
[2024-09-01] MEDS: NOVOLOG FLEXPEN-MODERATE RESISTANCE 7 UNITS SC (18:23)
[2024-09-01] MEDS: ROCEPHIN 1000 MG IV (20:04)
[2024-09-01 22:01] LABS: Glucose - Point of Care 304 mg/dl (70-99)
[2024-09-01] MEDS: LANTUS 0.12 UNITS SC (22:11)
[2024-09-02] VITALS (7 sets, daily range): BP systolic 122–150; BP diastolic 65–81
[2024-09-02] MEDS: DECADRON 4 MG IV ×3 (05:09→21:29)
[2024-09-02 07:01] LABS: % Basophils 0.2 % (0-2); % Immature Granulocytes 0.5 % (0-0.5); % Lymphocytes 6.7 % (20.5-51.1); % Monocytes 6.5 % (1.7-9.3); % Neutrophils 86.1 % (42.2-75.2); Absolute Immature Granulocytes 0.1 10^3/uL (0-0.05); Absolute Lymphocytes 1.1 10^3/uL (1.2-3.4); Absolute Monocytes 1.1 10^3/uL (0.1-0.6); Absolute Neutrophils 14.2 10^3/uL (1.4-6.5); Hematocrit 48.5 % (39.0-52.0); Mean Corp Hgb Conc. 35.1 g/dL (33.0-37.0); Mean Corpuscular Hgb 30.2 pg (27.0-31.0); Mean Corpuscular Volume 86.3 fL (80.0-94.0); Mean Platelet Volume 11.8 fL (7.4-10.4); Nucleated Red Blood Cells % 0 % (-); Platelet Count 174 10^3/uL (130-400); Red Blood Cell Count 5.62 10^6/uL (4.70-6.10); Red Cell Dist. Width 13.3 % (11.5-14.5); White Blood Cell Count 16.5 10^3/uL (4.8-10.8)
[2024-09-02 07:24] LABS: ALT (SGPT) 37 U/L (0-50); AST (SGOT) 38 U/L (17-59); Albumin 4.4 g/dl (3.5-5.0); Alkaline Phosphatase 54 U/L (38-126); Blood Urea Nitrogen 24 mg/dl (9-20); Calcium 9.2 mg/dl (8.4-10.2); Carbon Dioxide 21 mmol/L (22-30); Chloride 100 mmol/L (98-107); Estimated Creatinine Clearance > 125 ml/min; Glucose 303 mg/dl (70-99); Potassium 4.8 mmol/L (3.5-5.1); Sodium 137 mmol/L (135-145); Total Bilirubin 0.6 mg/dl (0.2-1.3); Total Protein 7.3 g/dl (6.3-8.2); eGFR > 60.00
[2024-09-02] MEDS: DUONEB 3 ML INH ×4 (07:35→19:40)
[2024-09-02] MEDS: SYMBICORT 160/4.5 MCG INHALER 2 PUFF INH ×2 (07:36→19:40)
[2024-09-02 07:40] LABS: Glucose - Point of Care 283 mg/dl (70-99)
[2024-09-02] MEDS: NOVOLOG FLEXPEN 14 UNITS SC ×3 (08:47→17:57)
[2024-09-02] MEDS: NOVOLOG FLEXPEN-MODERATE RESISTANCE 5 UNITS SC ×2 (08:48→12:00)
[2024-09-02] MEDS: SUBUTEX 20 MG SL (08:50)
[2024-09-02] MEDS: ASPIR LOW (ENTERIC COATED) 81 MG PO (08:52)
[2024-09-02] MEDS: PAXIL 30 MG PO (08:52)
[2024-09-02] MEDS: NORVASC 5 MG PO (08:52)
[2024-09-02] MEDS: VIBRAMYCIN 100 MG PO ×2 (08:52→21:29)
[2024-09-02] MEDS: WELLBUTRIN XL (24 hour extended release) 300 MG PO (08:53)
[2024-09-02] MEDS: MUCINEX 600 MG PO ×2 (08:53→21:28)
[2024-09-02 11:31] LABS: Glucose - Point of Care 251 mg/dl (70-99)
--- NOTE | 2024-09-02 12:12 | W.PN.HOSP.TC ---
Addendum entered and electronically signed by Magdy Nguyen MD 09/02/24 15:46:
Sepsis, POA
Original Note:
Today's Communication/Plan
-
Continue antibiotics
Wean O2 as tolerated
Continue steroids, anticipate switching to every 12 tomorrow
Insulin adjustment
Assessment / Plan
Assessment / Plan
Physical Exam
General: NAD
HEENT: PERRLA
Respiratory: Exp Wheezes
Cardiac: S1/S2 and Regular Rhythm
GI: Soft and Non Tender
Musculoskeletal: No Edema
Skin: Warm and Dry; No Rash
Neuro: AO x 3
Psych: Calm
Acute COPD Exacerbation
CAP
Daily Smoker
Hypoxic Resp Failure requiring 5L
-admit to telemetry
-O2 support as needed
-IV Decadron, Duonebs
-Ceftriaxone/Doxy
-Acapella, Mucinex
-Sputum Culture
-patient interested in stopping smoking, refusing nicotine patch here
IDDM
-PAPER PATTERN FOLDER Levemir increase to 16 and aspart 14 as home dose - monitor and adjust
-ISS
-hold PAPER PATTERN FOLDER Janumet for now
-a1c 10.1 in 08/08
Leukocytosis
� Suspect secondary to steroids
Monitor fever curve, white count
Hyponatremia
-likely SIADH
-fluid restrict for now
-improving
Essential HTN - PAPER PATTERN FOLDER Amlodipine
GERD
Depression - PAPER PATTERN FOLDER Paroxetine, Bupropion, Caplyta; PRN Lorazepam
Hx opiate dependence - PAPER PATTERN FOLDER Suboxone
DVT PPx Lovenox subQ
FULL CODE
Anticipated Discharge: > 48 hours
Subjective/Interval History
-
Date of Service: September 02, 2024
No acute overnight, still feels short of breath at times
Objective Data
-
Labs:
Laboratory Results
09/02/24
06:25
WBC 16.5 H
Hgb 17.0
Hct 48.5
Plt Count 174 D
Sodium 137
Potassium 4.8
Chloride 100
Carbon Dioxide 21 L
BUN 24 H
Creatinine 0.8
Glucose 303 H
Calcium 9.2
Total Bilirubin 0.6
AST 38
ALT 37
Alkaline Phosphatase 54
Vital Signs:
Vital Signs
Temp Pulse Resp BP Pulse Ox
97.7 F 89 16 122/75 99
09/02/24 11:22 09/02/24 11:22 09/02/24 11:22 09/02/24 11:22 09/02/24 11:22
I&O
09/01/24 09/02/24 09/03/24
06:59 06:59 06:59
Intake Total 1200 / 1200 350 / 350
Output Total 650 / 650 1850 / 1850 250 / 250
Balance -650 / -650 -650 / -650 100 / 100
Review of Systems
-
History Source: Patient
All other systems: Not reviewed unless documented
Physical Exam
-
General: Well Developed, Well Nourished, Comfortable, Conversant and Obese
HEENT: Oxygen (3-4L NC)
Respiratory: Clear to Auscultation and Non Labored Respirations; Negative Wheezes or Accessory Resp Muscle Use
Cardiac: Regular Rhythm and S1/S2; Negative Murmur or Rub
GI: Soft, Nontender and Nondistended
Neuro: Awake, Alert and Oriented
Psych: Calm and Intact Judgement/Insight
Data Reviewed
-
Diagnostic Radiology: Image personally visualized and interpreted and Report Reviewed by me
Labs: Labs Reviewed by me
[2024-09-02] MEDS: TYLENOL 650 MG PO (15:15)
[2024-09-02 16:45] LABS: Glucose - Point of Care 311 mg/dl (70-99)
[2024-09-02] MEDS: NOVOLOG FLEXPEN-MODERATE RESISTANCE 7 UNITS SC (17:58)
[2024-09-02] MEDS: LOVENOX 40 MG SC (17:59)
[2024-09-02] MEDS: ROCEPHIN 1000 MG IV (21:29)
[2024-09-02 21:52] LABS: Glucose - Point of Care 311 mg/dl (70-99)
[2024-09-02] MEDS: LANTUS 0.16 UNITS SC (22:26)
[2024-09-03 03:49] VITALS: BP 145/85
[2024-09-03] MEDS: DECADRON 4 MG IV ×2 (06:09→17:48)
[2024-09-03 07:14] VITALS: BP 135/83
[2024-09-03 07:23] LABS: Glucose - Point of Care 269 mg/dl (70-99)
[2024-09-03] MEDS: DUONEB 3 ML INH ×4 (07:45→20:37)
[2024-09-03] MEDS: SYMBICORT 160/4.5 MCG INHALER 2 PUFF INH ×2 (07:46→20:37)
[2024-09-03 08:32] LABS: Hematocrit 44.6 % (39.0-52.0); Hemoglobin 15.7 g/dL (13.0-18.0); Mean Corp Hgb Conc. 35.2 g/dL (33.0-37.0); Mean Corpuscular Hgb 30.4 pg (27.0-31.0); Mean Corpuscular Volume 86.4 fL (80.0-94.0); Mean Platelet Volume 11.9 fL (7.4-10.4); Platelet Count 155 10^3/uL (130-400); Red Blood Cell Count 5.16 10^6/uL (4.70-6.10); Red Cell Dist. Width 13.4 % (11.5-14.5); White Blood Cell Count 11.9 10^3/uL (4.8-10.8)
[2024-09-03] MEDS: MUCINEX 600 MG PO ×2 (08:57→21:27)
[2024-09-03] MEDS: VIBRAMYCIN 100 MG PO ×2 (08:57→21:27)
[2024-09-03] MEDS: WELLBUTRIN XL (24 hour extended release) 300 MG PO (08:57)
[2024-09-03] MEDS: ASPIR LOW (ENTERIC COATED) 81 MG PO (08:57)
[2024-09-03] MEDS: NORVASC 5 MG PO (08:57)
[2024-09-03] MEDS: PAXIL 30 MG PO (08:57)
[2024-09-03] MEDS: SUBUTEX 20 MG SL (08:58)
[2024-09-03 09:00] LABS: ALT (SGPT) 29 U/L (0-50); AST (SGOT) 24 U/L (17-59); Albumin 4.1 g/dl (3.5-5.0); Alkaline Phosphatase 55 U/L (38-126); Blood Urea Nitrogen 32 mg/dl (9-20); Calcium 9.1 mg/dl (8.4-10.2); Carbon Dioxide 26 mmol/L (22-30); Chloride 97 mmol/L (98-107); Estimated Creatinine Clearance > 125 ml/min; Glucose 315 mg/dl (70-99); Potassium 4.6 mmol/L (3.5-5.1); Sodium 136 mmol/L (135-145); Total Bilirubin 0.5 mg/dl (0.2-1.3); Total Protein 6.7 g/dl (6.3-8.2); eGFR > 60.00
[2024-09-03] MEDS: NOVOLOG FLEXPEN 14 UNITS SC ×3 (10:09→17:46)
[2024-09-03] MEDS: NOVOLOG FLEXPEN-MODERATE RESISTANCE 5 UNITS SC (10:09)
[2024-09-03 11:04] VITALS: BP 143/81
[2024-09-03 11:36] LABS: Glucose - Point of Care 362 mg/dl (70-99)
--- NOTE | 2024-09-03 12:00 | CM ---
CM reviewed chart, patient seen beside with significant other, initial assessment completed. Patient resides with significant other in a two story home, a few steps to enter. Patient reports having a cane and rolling walker at home, Karen EUCEDA in
past, denies SNF. Patient currently on O2, does not wear home O2. Patient PCP Dr. Beckham, pharmacy [facility] in [place], confirms prescription coverage. CM will continue to follow for all discharge planning needs.
Plan; watch for home O2 needs.
--- NOTE | 2024-09-03 12:49 | W.PN.HOSP.TC ---
Today's Communication/Plan
-
await sputum cultures
wean steroids
cont abx
wean o2 - now down to 3L
Assessment / Plan
Assessment / Plan
Physical Exam
General: NAD
HEENT: PERRLA
Respiratory: Exp Wheezes, improved
Cardiac: S1/S2 and Regular Rhythm
GI: Soft and Non Tender
Musculoskeletal: No Edema
Skin: Warm and Dry; No Rash
Neuro: AO x 3
Psych: Calm
Acute COPD Exacerbation
CAP
Daily Smoker
Hypoxic Resp Failure requiring 5L
-admit to telemetry
-O2 support as needed
-IV Decadron - wean to q12h, Duonebs
-Ceftriaxone/Doxy x 5 days abx
-Acapella, Mucinex
-Sputum Culture
-patient interested in stopping smoking, refusing nicotine patch here
IDDM
-FORESTRY PATROLMAN Levemir increase to 16 and aspart 14 as home dose - monitor and adjust
-ISS
-hold FORESTRY PATROLMAN Janumet for now
-a1c 10.1 in 08/08
Leukocytosis
� Suspect secondary to steroids
Monitor fever curve, white count
Hyponatremia
-likely SIADH
-fluid restrict for now
-improving
Essential HTN - FORESTRY PATROLMAN Amlodipine
GERD
Depression - FORESTRY PATROLMAN Paroxetine, Bupropion, Caplyta; PRN Lorazepam
Hx opiate dependence - FORESTRY PATROLMAN Suboxone
DVT PPx Lovenox subQ
FULL CODE
Anticipated Discharge: 24 - 48 hours
Subjective/Interval History
-
Date of Service: September 03, 2024
Weaning O2, feels slightly better
Objective Data
-
Labs:
Laboratory Results
09/03/24
07:19
WBC 11.9 H
Hgb 15.7
Hct 44.6
Plt Count 155
Sodium 136
Potassium 4.6
Chloride 97 L
Carbon Dioxide 26
BUN 32 H
Creatinine 0.8
Glucose 315 H
Calcium 9.1
Total Bilirubin 0.5
AST 24
ALT 29
Alkaline Phosphatase 55
Vital Signs:
Vital Signs
Temp Pulse Resp BP Pulse Ox
97.7 F 80 20 143/81 94
09/03/24 11:04 09/03/24 11:40 09/03/24 11:40 09/03/24 11:04 09/03/24 11:40
I&O
09/02/24 09/03/24 09/04/24
06:59 06:59 06:59
Intake Total 1200 / 1200 1790 / 1790
Output Total 1850 / 1850 900 / 900
Balance -650 / -650 890 / 890
Review of Systems
-
History Source: Patient
All other systems: Not reviewed unless documented
Physical Exam
-
General: Well Developed, Well Nourished, Comfortable, Conversant and Obese
HEENT: Oxygen (3-4L NC)
Respiratory: Clear to Auscultation and Non Labored Respirations; Negative Wheezes or Accessory Resp Muscle Use
Cardiac: Regular Rhythm and S1/S2; Negative Murmur or Rub
GI: Soft, Nontender and Nondistended
Neuro: Awake, Alert and Oriented
Psych: Calm and Intact Judgement/Insight
Data Reviewed
-
Diagnostic Radiology: Image personally visualized and interpreted and Report Reviewed by me
Labs: Labs Reviewed by me
[2024-09-03] MEDS: NOVOLOG FLEXPEN-MODERATE RESISTANCE 9 UNITS SC (14:04)
[2024-09-03 15:32] VITALS: BP 134/67
[2024-09-03 16:52] LABS: Glucose - Point of Care 237 mg/dl (70-99)
[2024-09-03] MEDS: LOVENOX 40 MG SC (17:47)
[2024-09-03] MEDS: NOVOLOG FLEXPEN-MODERATE RESISTANCE 3 UNITS SC (17:47)
[2024-09-03] MEDS: ROCEPHIN 1000 MG IV (21:27)
[2024-09-03] MEDS: STERILE WATER FOR INJECTION 10 ML IV (21:28)
[2024-09-03] MEDS: LANTUS 0.16 UNITS SC (21:29)
[2024-09-03 21:58] LABS: Glucose - Point of Care 290 mg/dl (70-99)
[2024-09-03 23:00] VITALS: BP 145/73
[2024-09-04] MEDS: DECADRON 4 MG IV (06:06)
[2024-09-04 07:29] VITALS: BP 129/73
[2024-09-04] MEDS: DUONEB 3 ML INH ×2 (07:49→11:56)
[2024-09-04] MEDS: SYMBICORT 160/4.5 MCG INHALER 2 PUFF INH (07:50)
[2024-09-04 07:55] LABS: Glucose - Point of Care 300 mg/dl (70-99)
[2024-09-04] MEDS: NOVOLOG FLEXPEN 14 UNITS SC ×2 (08:00→12:04)
[2024-09-04] MEDS: NOVOLOG FLEXPEN-MODERATE RESISTANCE 7 UNITS SC (08:00)
[2024-09-04] MEDS: VIBRAMYCIN 100 MG PO (08:01)
[2024-09-04] MEDS: WELLBUTRIN XL (24 hour extended release) 300 MG PO (08:01)
[2024-09-04] MEDS: PAXIL 30 MG PO (08:02)
[2024-09-04] MEDS: SUBUTEX 20 MG SL (08:02)
[2024-09-04] MEDS: NORVASC 5 MG PO (08:02)
[2024-09-04] MEDS: ASPIR LOW (ENTERIC COATED) 81 MG PO (08:02)
[2024-09-04] MEDS: MUCINEX 600 MG PO (08:03)
[2024-09-04 08:16] LABS: Hematocrit 46.5 % (39.0-52.0); Hemoglobin 16.4 g/dL (13.0-18.0); Mean Corp Hgb Conc. 35.3 g/dL (33.0-37.0); Mean Corpuscular Hgb 30.6 pg (27.0-31.0); Mean Corpuscular Volume 86.8 fL (80.0-94.0); Mean Platelet Volume 11.1 fL (7.4-10.4); Platelet Count 162 10^3/uL (130-400); Red Blood Cell Count 5.36 10^6/uL (4.70-6.10); Red Cell Dist. Width 13.3 % (11.5-14.5); White Blood Cell Count 9.8 10^3/uL (4.8-10.8)
[2024-09-04 08:42] LABS: ALT (SGPT) 27 U/L (0-50); AST (SGOT) 21 U/L (17-59); Albumin 4.1 g/dl (3.5-5.0); Alkaline Phosphatase 54 U/L (38-126); Blood Urea Nitrogen 34 mg/dl (9-20); Calcium 9.1 mg/dl (8.4-10.2); Carbon Dioxide 26 mmol/L (22-30); Estimated Creatinine Clearance > 125 ml/min; Glucose 315 mg/dl (70-99); Potassium 5.2 mmol/L (3.5-5.1); Sodium 136 mmol/L (135-145); Total Bilirubin 0.5 mg/dl (0.2-1.3); Total Protein 6.9 g/dl (6.3-8.2); eGFR > 60.00
[2024-09-04 08:49] LABS: Chloride 97 mmol/L (98-107)
[2024-09-04 10:36] VITALS: PULSE 119; O2SAT 92
--- NOTE | 2024-09-04 10:47 | PTOTSP ---
The patient is independent with ambulation and elevations, demonstrating normal, steady gait. SpO2 remained stable on room air (low 90's). No PT needs identified at this time, will sign off.
--- NOTE | 2024-09-04 11:30 | W.PN.HOSP.TC ---
Today's Communication/Plan
-
Home O2 evaluation
Steroid taper
Discharge
Assessment / Plan
Assessment / Plan
#Acute hypoxemic and hypercapnic respiratory failure
#Acute COPD Exacerbation
#Community-acquired pneumonia
-Multifactorial etiology with COPD exacerbation and likely CAP
-Required up to 5 L oxygen via NC here; improved with steroid antibiotics; now on RA
-Currently on day 4 of ceftriaxone and doxycycline; transition to twice daily steroid
-Remains on home Spiriva and Symbicort maintenance inhaler
-Will transition antibiotics to cefdinir and doxycycline to complete 5-day
-Transition IV steroids to prednisone 40 mg with 12-day taper plan
-Continue home Spiriva and Symbicort, home DuoNebs as needed
-Home O2 evaluation prior to DC
-Encouraged smoking cessation, Rx for nicotine patches sent
#IDDM
-Poorly controlled with A1c 10.1% on 08/08, no known microvascular complication
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
-Remains hyperglycemic on steroids, expect improvement as steroids are tapered
-Continue Lantus 16 units, Humalog 14 units with Uday escamilla Mounjaro at DC
-Close follow-up with PCP at discharge, referral provided if needed
#Leukocytosis
-Suspect secondary to steroids
-Monitor fever curve, white count
Hyponatremia
-Resolved with fluid restriction
-Encourage 48oz restriction at DC
-BMP in 1 week
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
#GERD
#Depression - [employer]IPMENT WORKER Paroxetine, Bupropion, Caplyta; PRN Lorazepam
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
DVT PPhx: Lovenox subQ
Diet: Carb controlled, 48 ounce water restriction
CODE STATUS: FULL CODE
Anticipated Discharge: Today
Subjective/Interval History
-
Date of Service: September 04, 2024
Seen and examined at the bedside. No acute events reported overnight. AFVSS on room air this morning
He states he feels well, would like to go home today. Denies any wheezing or cough. States he is breathing well
Denies any new complaints. Pending home O2 evaluation
Objective Data
-
Labs:
Laboratory Results
09/04/24
07:47
WBC 9.8
Hgb 16.4
Hct 46.5
Plt Count 162
Sodium 136
Potassium 5.2 H
Chloride 97 L
Carbon Dioxide 26
BUN 34 H
Creatinine 0.7
Glucose 315 H
Calcium 9.1
Total Bilirubin 0.5
AST 21
ALT 27
Alkaline Phosphatase 54
Vital Signs:
Vital Signs
Temp Pulse Resp BP Pulse Ox
98.1 F 79 17 129/73 97
09/04/24 07:29 09/04/24 07:54 09/04/24 07:54 09/04/24 08:02 09/04/24 08:00
I&O
09/03/24 09/04/24 09/05/24
06:59 06:59 06:59
Intake Total 1790 / 1790 1000 / 1000
Output Total 900 / 900
Balance 890 / 890 1000 / 1000
Review of Systems
-
History Source: Patient
All other systems: Reviewed and negative
Physical Exam
-
General: Well Developed, No Apparent Distress, Comfortable and Obese
HEENT: Normocephalic, Atraumatic, Moist Mucous Membranes and Anicteric
Respiratory: Non Labored Respirations and Decreased Breath Sounds; Negative Wheezes, Rales, Rhonchi or Accessory Resp Muscle Use
Cardiac: Regular Rhythm and S1/S2; Negative Murmur, Rub or Gallop
GI: Soft, Nontender, Nondistended and Normal Bowel Sounds
Musculoskeletal: No Clubbing, No Cyanosis and No Edema
Skin: Warm, Dry and Normal Turgor; Negative Rash
Neuro: AO x 3 and Nonfocal/Grossly Intact; Negative Tremors
Psych: Calm
Data Reviewed
-
Labs: Labs Reviewed by me and Discussed with Patient
--- NOTE | 2024-09-04 11:37 | CM ---
Patient seen at bedside with s/o
IMM explained & signed. In chart.
Discussed vn - declines
PLAN: Home, no needs
s/o to transport
[2024-09-04 11:47] LABS: Glucose - Point of Care 290 mg/dl (70-99)
[2024-09-04] MEDS: NOVOLOG FLEXPEN-MODERATE RESISTANCE 5 UNITS SC (12:06)
[2024-09-04 12:27] VITALS: BP 138/85
--- NOTE | 2024-09-04 14:27 | W.DCSUMMARY ---
Discharge Summary
Discharge Data
Date of Admission: 08/31/24
Date of Discharge: 09/04/24
-
Pending Results: No
Hospital Course
59-year-old male with COPD/asthma, GERD, HTN, HLD, IDDM, CKD that presented to the ED with fevers, cough, congestion. Half pack per day smoking history. Associated with chills, productive cough and chest tightness. States that his home inhalers
were not helping so he came to the ED. Diagnosed with COPD exacerbation likely secondary to superimposed community-acquired pneumonia. Was started on 2 IV Decadron, DuoNebs standing and as needed, and treated supportively with Acapella and
Mucinex. Started on ceftriaxone and doxycycline for empiric therapy of community-acquired pneumonia. Sputum cultures and blood cultures ultimately negative. Required up to 5 L of supplemental oxygen in the hospital in the context of acute
hypoxemic and hypercapnic respiratory failure. Was titrated back down to room air prior to discharge. Transition to 40 mg prednisone with 12-day taper. Continued on home medications of Spiriva and Symbicort. Encouraged to follow-up with
pulmonology after discharge. Provided smoking cessation aids with nicotine patch. Increased Lantus to 16 units and Humalog to 14 units due to steroid-induced hyperglycemia. Patient to follow-up with PCP and receptionist secretary at discharge
Discharge Plan
-
Patient Disposition: Home (Routine Discharge)
Discharge Diagnosis/Procedures: COPD exacerbation
Condition: Good
Diet: Diabetic, Carb Controlled and Restrict fluids to 48 oz
Activity: As tolerated
Driving Restrictions: As prior to admission
Bathing Restrictions: None
Blood Work: BMP in 5 days to check potassium levels
Hemoglobin A1c in 5 days
Activity Restrictions/Additional Instructions:
Schedule follow-up appointment with your family physician, should be seen in office within 1 to 2 weeks of discharge
Referral for receptionist secretary provided if needed. Call their office to schedule an appointment
Smoking cessation. Talk to family doctor about classes/support group. Prescription provided for nicotine patches. Consider [id number] Chantix
Instructions: COPD exacerbation
Referrals:
Colin Matos MD, Resident [Family Practice Resident Year2] - in less than 1 week (Family doctor)
Abundio Carranza MD [Active] -
UNKNOWN - PT DOES,NOT KNOW [Family Provider] -
Additional Discharge Medication Instructions: Continue cefdinir 300 mg every 12 hours and doxycycline 100 mg every 12 hours for 2 more days after discharge from the hospital (through 09/06/2024)
Continue prednisone 40 mg x 3 days, then 30 mg x 3 days, then 20 mg x 3 days, then 10 mg x 3 days, then stop taking
Increased Lantus insulin to 16 units while on steroids. Speak with your family doctor about returning to 10 units daily after steroid regimen.
Prescriptions:
New
Insulin Glargine Lantus [Lantus] 16 UNITS
Subcutaneous Insulin Syringe [Syringe-Insulin] 0 UNIT
As Directed mls/hr SC HS
Reason for use: Diabetes
Ordered By: Dioni Kim DO
Last Taken: 09/03/24 21:29 0.16 mls
doxycycline hyclate 100 mg Capsule
100 mg PO Q12 2 Days Qty: 4 0RF
cefdinir 300 mg capsule
300 mg PO Q12H 2 Days Qty: 4 0RF
prednisone 20 mg tablet
See Taper PO DAILY Qty: 30 0RF
Taper: Prednisone DC Starting at 40 mg daily
40 mg Daily for 3 Days and 0 Hour
30 mg Daily for 3 Days and 0 Hour
20 mg Daily for 3 Days and 0 Hour
10 mg Daily for 3 Days and 0 Hour
nicotine 14 mg/24 hr patch 24 hour
1 patch transdermal DAILY Qty: 14 0RF
Continued
insulin lispro [Humalog KwikPen Insulin] 100 unit/mL Insulin Pen
14 unit SC AC
Patient Comments:
09/01/24 patient said he forget to takes this
Janumet 50-1,000 mg Tablet
2 tab PO BID@0800,1700
Patient Comments:
09/01/24-patient said he has not taken this in months and then restart receently
amlodipine 5 mg tablet
5 mg PO DAILY
aspirin 81 mg Tablet,Delayed Release (Dr/Ec)
81 mg PO DAILY
paroxetine HCl 30 mg tablet
30 mg PO DAILY
lorazepam 1 mg tablet
1 mg PO DAILYPRN PRN (Reason: anxiety)
Patient Comments:
05/18/2023: last filled 01/12/23, 30 tabs for 30 days from [facility]
albuterol sulfate 90 mcg/actuation Hfa Aerosol Inhaler
2 inh INHALATION R Q4HPRN PRN (Reason: sob/wheezing)
bupropion HCl 300 mg tablet extended release 24 hr
300 mg PO DAILY
buprenorphine-naloxone 8-2 mg film
3 film sublingual DAILY
Patient Comments:
05/18/2023: last filled 04/20/23, 75 film for 30 days from [facility]
Caplyta 42 mg capsule
42 mg PO DAILY
methylphenidate HCl [Concerta] 54 mg tablet extended release 24hr
54 mg PO DAILYPRN PRN (Reason: focus)
Patient Comments:
05/18/2023: last filled 04/12/23, 30 tabs for 30 days from [facility]
budesonide-formoterol [Symbicort] 160-4.5 mcg/actuation HFA aerosol inhaler
2 puff INHALATION R BID
atorvastatin [Lipitor] 10 mg Tablet
10 mg PO QPM
Spiriva Respimat 2.5 mcg/actuation Mist
2 puff INHALATION R DAILY
Mounjaro 12.5 mg/0.5 mL Pen Injector
12.5 mg SC TH
Discontinued
insulin glargine [Lantus Solostar U-100 Insulin] 100 unit/mL (3 mL) Insulin Pen
10 unit SC HS
Discharge Orders:
Discharge Patient (As Directed); Ordered 09/04/24
Ordered By: Dioni Kim
Discharge Date and Time
Discharge Date/Time: 09/04/24 12:40
Print Language: CHINESE
== END 2024-09-04 12:40 | disposition home or self-care (01) | DRG 871 ==
LOC: 4 WEST ACU 23:46
PROVIDERS: Emergency Medicine; Internal Medicine; ADMITTING PHYSICIAN Student in an Organized Health Care Education/Training Program; ATTENDING PHYSICIAN Internal Medicine; EMERGENCY PHYSICIAN Emergency Medicine
DX: A41.9 Sepsis, unspecified organism (principal); J96.01 Acute respiratory failure with hypoxia; J96.02 Acute respiratory failure with hypercapnia; J44.1 Chronic obstructive pulmonary disease with (acute) exacerbation; E87.1 Hypo-osmolality and hyponatremia; A69.20 Lyme disease, unspecified; J44.0 Chronic obstructive pulmonary disease with (acute) lower respiratory infection; E11.22 Type 2 diabetes mellitus with diabetic chronic kidney disease; E11.65 Type 2 diabetes mellitus with hyperglycemia; Z79.84 Long term (current) use of oral hypoglycemic drugs; N18.9 Chronic kidney disease, unspecified; Z11.52 Encounter for screening for COVID-19; I12.9 Hypertensive chronic kidney disease with stage 1 through stage 4 chronic kidney disease, or unspecified chronic kidney disease; K21.9 Gastro-esophageal reflux disease without esophagitis; E78.00 Pure hypercholesterolemia, unspecified; Z79.4 Long term (current) use of insulin; F17.210 Nicotine dependence, cigarettes, uncomplicated; T38.0X5A Adverse effect of glucocorticoids and synthetic analogues, initial encounter; F41.9 Anxiety disorder, unspecified; Z79.51 Long term (current) use of inhaled steroids; F32.A Depression, unspecified; G47.30 Sleep apnea, unspecified; F43.10 Post-traumatic stress disorder, unspecified; J45.998 Other asthma; E66.9 Obesity, unspecified; Z68.34 Body mass index [BMI] 34.0-34.9, adult; Z79.82 Long term (current) use of aspirin; G89.29 Other chronic pain; N40.0 Benign prostatic hyperplasia without lower urinary tract symptoms
CPT/HCPCS: 71046; 80048; 80053; 82962; 83605; 83880; 83935; 84300; 85025; 85027; 87040; 87070; 87205; 87502; 87811; 94640; 96374; 96375; 97162; 99285

== ENCOUNTER → 2024-11-03 10:19 | Outpatient (REF) | payer MEDICARE, OTHER, SELFPAY | LOC: HWRAD 10:19 | PROVIDERS: ATTENDING PHYSICIAN Nurse Practitioner Adult Health; FAMILY PHYSICIAN Family Medicine | DX: F17.210 Nicotine dependence, cigarettes, uncomplicated (principal) | CPT/HCPCS: 71271 ==

== ENCOUNTER → 2024-11-14 08:55 | Outpatient (REF) | payer MEDICARE, OTHER, SELFPAY ==
[2024-11-14 09:42] LABS: % Basophils 1.3 % (0-2); % Eosinophils 2.3 % (0-6); % Immature Granulocytes 0.6 % (0-0.5); % Lymphocytes 21.9 % (20.5-51.1); % Monocytes 10.8 % (1.7-9.3); % Neutrophils 63.1 % (42.2-75.2); Absolute Basophils 0.1 10^3/uL (0-0.2); Absolute Eosinophils 0.2 10^3/uL (0-0.7); Absolute Immature Granulocytes 0.1 10^3/uL (0-0.05); Absolute Lymphocytes 1.9 10^3/uL (1.2-3.4); Absolute Neutrophils 5.5 10^3/uL (1.4-6.5); Hematocrit 49.9 % (39.0-52.0); Hemoglobin 17.8 g/dL (13.0-18.0); Mean Corp Hgb Conc. 35.7 g/dL (33.0-37.0); Mean Corpuscular Hgb 30.7 pg (27.0-31.0); Mean Corpuscular Volume 86.2 fL (80.0-94.0); Mean Platelet Volume 11.7 fL (7.4-10.4); Nucleated Red Blood Cells % 0 % (-); Platelet Count 179 10^3/uL (130-400); Red Blood Cell Count 5.79 10^6/uL (4.70-6.10); Red Cell Dist. Width 13.7 % (11.5-14.5); White Blood Cell Count 8.8 10^3/uL (4.8-10.8)
[2024-11-14 10:41] LABS: Glycohemoglobin (HgbA1c) 7.9 % (4.0-5.6)
[2024-11-14 10:55] LABS: ALT (SGPT) 38 U/L (0-50); AST (SGOT) 24 U/L (17-59); Albumin 5.4 g/dl (3.5-5.0); Alkaline Phosphatase 68 U/L (38-126); Blood Urea Nitrogen 22 mg/dl (9-20); Calcium 10.7 mg/dl (8.4-10.2); Carbon Dioxide 24 mmol/L (22-30); Chloride 100 mmol/L (98-107); Glucose 220 mg/dl (70-99); HDL Cholesterol 28 mg/dl; LDL Cholesterol, Calculated 60 mg/dl; Potassium 4.6 mmol/L (3.5-5.1); Sodium 141 mmol/L (135-145); Total Cholesterol 130 mg/dl (50-199); Total Protein 8.4 g/dl (6.3-8.2); Triglyceride 212 mg/dl (10-149); Very Low Density Lipoprotein 42 mg/dl (0-30); eGFR > 60.00
[2024-11-15 14:19] LABS: Free Testosterone 44 pg/mL (47-244); Sex Hormone Binding Globulin 25 nmol/L (19-76); Total Testosterone 218 ng/dL (300-720)
== END ==
LOC: REG 08:55
PROVIDERS: ATTENDING PHYSICIAN Internal Medicine Cardiovascular Disease; FAMILY PHYSICIAN Physician Assistant; OTHER PHYSICIAN Family Medicine
DX: E11.65 Type 2 diabetes mellitus with hyperglycemia (principal); E78.1 Pure hyperglyceridemia; E29.1 Testicular hypofunction
CPT/HCPCS: 36415; 80053; 80061; 83036; 84270; 84402; 84403; 85025

== ENCOUNTER → 2025-02-15 07:38 | Outpatient (REF) | payer MEDICARE, OTHER, SELFPAY ==
[2025-02-15 08:35] LABS: Hematocrit 55.2 % (39.0-52.0); Hemoglobin 19.7 g/dL (13.0-18.0); Mean Corp Hgb Conc. 35.7 g/dL (33.0-37.0); Mean Corpuscular Volume 85.4 fL (80.0-94.0); Nucleated Red Blood Cells % 0 % (-); Platelet Count 184 10^3/uL (130-400); Red Cell Dist. Width 13.2 % (11.5-14.5)
[2025-02-15 09:08] LABS: Glycohemoglobin (HgbA1c) 8.3 % (4.0-5.6)
[2025-02-15 09:16] LABS: ALT (SGPT) 35 U/L (0-50); AST (SGOT) 17 U/L (17-59); Albumin 5.4 g/dl (3.5-5.0); Blood Urea Nitrogen 21 mg/dl (9-20); Calcium 10.4 mg/dl (8.4-10.2); Carbon Dioxide 23 mmol/L (22-30); Chloride 101 mmol/L (98-107); Glucose 266 mg/dl (70-99); HDL Cholesterol 40 mg/dl; LDL Cholesterol, Calculated 81 mg/dl; Potassium 4.6 mmol/L (3.5-5.1); Sodium 138 mmol/L (135-145); Total Protein 8.7 g/dl (6.3-8.2); Very Low Density Lipoprotein 26 mg/dl (0-30); eGFR > 60.00
[2025-02-15 10:13] LABS: Alkaline Phosphatase 61 U/L (38-126)
== END ==
LOC: REG 07:38
PROVIDERS: ATTENDING PHYSICIAN Physician Assistant; FAMILY PHYSICIAN Family Medicine
DX: E11.65 Type 2 diabetes mellitus with hyperglycemia (principal); E29.1 Testicular hypofunction
CPT/HCPCS: 36415; 80053; 80061; 83036; 84270; 84402; 84403; 85025

== ENCOUNTER → 2025-02-23 07:51 | Outpatient (REF) | payer MEDICARE, OTHER, SELFPAY ==
[2025-02-23 09:28] LABS: Hematocrit 56.9 % (39.0-52.0); Hemoglobin 20.5 g/dL (13.0-18.0); Mean Corp Hgb Conc. 36.0 g/dL (33.0-37.0); Mean Corpuscular Volume 84.7 fL (80.0-94.0); Nucleated Red Blood Cells % 0 % (-); Platelet Count 177 10^3/uL (130-400); Red Cell Dist. Width 14.0 % (11.5-14.5)
[2025-02-23 09:33] LABS: ALT (SGPT) 39 U/L (0-50); AST (SGOT) 25 U/L (17-59); Albumin 4.9 g/dl (3.5-5.0); Alkaline Phosphatase 64 U/L (38-126); Blood Urea Nitrogen 18 mg/dl (9-20); Calcium 9.9 mg/dl (8.4-10.2); Carbon Dioxide 18 mmol/L (22-30); Chloride 105 mmol/L (98-107); Glucose 290 mg/dl (70-99); Potassium 4.9 mmol/L (3.5-5.1); Sodium 134 mmol/L (135-145); Total Protein 8.1 g/dl (6.3-8.2); eGFR > 60.00
== END ==
LOC: REG 07:51
PROVIDERS: ATTENDING PHYSICIAN Physician Assistant; FAMILY PHYSICIAN Family Medicine
DX: E11.65 Type 2 diabetes mellitus with hyperglycemia (principal); E29.1 Testicular hypofunction
CPT/HCPCS: 36415; 80053; 85025

== ENCOUNTER 2025-03-01 14:02 | Inpatient (IN) | payer MEDICARE, OTHER, SELFPAY ==
[2025-02-28 20:50] VITALS: BMI 32.4
[2025-02-28 20:53] VITALS: BP 168/96
[2025-02-28 21:00] VITALS: BP 174/107
[2025-02-28 21:05] VITALS: BP 174/107
[2025-02-28 21:14] LABS: Hematocrit 46.1 % (39.0-52.0); Hemoglobin 16.7 g/dL (13.0-18.0); Mean Corp Hgb Conc. 36.2 g/dL (33.0-37.0); Mean Corpuscular Volume 82.9 fL (80.0-94.0); Nucleated Red Blood Cells % 0 % (-); Platelet Count 177 10^3/uL (130-400); Red Cell Dist. Width 13.3 % (11.5-14.5)
--- NOTE | 2025-02-28 21:16 | ED.GENMED ---
History of Present Illness
General
Chief Complaint: Abdominal Pain
Source: patient
Exam Limitations: none
Time Seen by Provider: 02/28/25 21:14
Nursing documentation reviewed up to this point in time: agreed with
History of Present Illness
History of Present Illness:
59-year-old male with history of COPD/asthma, GERD, HTN, HLD, IDDM, CKD, Lyme disease with chronic generalized pain, presents with significant left upper quadrant abdominal pain, gradually worsening over the past 3 days abdominal distention, nausea
and vomited once yesterday. He feels constipated, his last BM was 2 days ago.
States for the past 3 weeks his legs have been weak and feeling 'tight.' At baseline, he typically walks with a shuffling gait and uses a walker, he is unable to climb stairs.
He has felt tightness in his neck and upper back muscles, past few days, tried Bengay but this is not helping
He weaned himself off of Suboxone 2 mg 3 times daily over the past 3 weeks because he does not want to take it anymore but he did take 2 mg once yesterday and once the day before for his abdominal pain.
He also 3 weeks ago stopped all of his psych medications which include Wellbutrin, Paxil and Caplyta
He states he medications he takes now is metformin 1000 twice daily and Mounjaro which she has been on for quite some time.
He saw his endocrine Dr. Lisa 7 days ago after having blood work done and was told he was 'very dehydrated,' and was referred back to his PCP which he never followed up with.
Caregiver with him, Kaleb states with him every day, states since stopping his psyche meds, he's had hallucinations, is paranoid, someone is in his head monitoring him, after him.
States pt was doing pretty well, walking better, spirits were up, sometimes goes to store with him, up until a week ago when suddenly he didn't feel well, complaining of more generalized pain, feels dehydrated, stomach ache, pain in shoulders.
Pt was on significant amount of narcotics until his PCP was arrested approx 3 years ago and has been on Suboxone since.
Sees Pain Management Dr. Andersen monthly
Sees Dr. George Pulmonology for COPD
Albertoaustin cristobal pt threw all his psyche meds away. Last Psyche appt. 2-3 weeks ago and after that threw his psyche meds away. He has done this in the past.
Past History
Past History
ED Past Medical History: Asthma, COPD, GERD, HTN, Hypercholesterolemia, NIDDM, Renal failure (On Dialysis in fall 2016 for 2 mos, renal insuff), Psychiatric (depression, PTSD) and Other (Rhabdomyalysis, Overdose, Intestinal obstruction, PNA, UTI,
Ulcers, TBI)
ED Past Surgical History: Other (Unknown)
Patient has exhibited threatening behavior?: No
PSI?: No
Social History
Tobacco: Smoker
Alcohol: None
Drug: Former user
Personal: Partner
Living: with roommate
Employment: Retired
Family History
Family History: Other
Review of Systems
Review of Systems
Allergies reviewed?: Yes
All Other Systems: ROS reviewed and negative except as documented in HPI and ROS
Constitutional: Reports fever
Respiratory: Denies trouble breathing
Cardiac: Denies chest pain
ABD/GI: Reports abdominal pain, nausea and constipated; Denies vomiting
Musculoskeletal: Reports neck pain and back pain (upper back and shoulder pain)
Skin: Reports no symptoms
Neurological: Reports weakness (generalized weakness)
Phy Exam
Physical Exam
Physical Exam:
GENERAL: Moderate distress moaning with abdominal pain. A&Ox3.
CONSTITUTIONAL: Febrile tachycardic
EYES: clear, conjunctivae normal
ENMT: moist mucus membranes, Pharynx nl
RESPIRATORY: Regular respirations, nonlabored, lungs clear.
CARDIOVASCULAR: Regular rate and rhythm, no murmurs, no rubs.
GI: Soft, distended, tender across upper abdomen, normal BS
MUSCULOSKELETAL: Moves with ease. Well perfused. No edema
SKIN: Warm, dry, pink
PSYCH: Anxious mood and affect. Well kept, interactive and appropriate
NEUROLOGIC: Awake, alert and oriented. No focal neurological deficits
Sepsis
Sepsis Screening
Sepsis Assessment: Sepsis Ruled Out
Sepsis Screen
Sepsis Screen: Sepsis Ruled Out
Date: 03/04/25
Time: 07:22
Course
Orders/Labs/Results
Orders:
Orders
02/28/25 21:02
Acetaminophen [Tylenol] 1,000 mg .ROUTE .STK-MED ONE
02/28/25 21:03
Electrocardiogram (*1) Urgent
Reason for Study: Other
Other Reason for Exam: Possible Sepsis
02/28/25 21:04
EKG- Treatment ONCE
02/28/25 21:05
Complete Blood Count/With Diff Urgent
Comprehensive Metabolic Panel Urgent
Lactic Acid Urgent
Lipase Urgent
Blood Culture Q20M
SANDRA Source: Blood/Venous
Specimen Description:
Comment: Urgent from separate sites. If patient screens positive for possible sepsis
02/28/25 21:15
HYDROmorphone [Dilaudid] 1 mg IV NOW STA
Ondansetron Injectable [Zofran] 4 mg IV NOW STA
02/28/25 21:16
CT Abd/Pel (IV only)-DH only Urgent
Comment:
Reason For Exam: Left upper abdominal pain
02/28/25 21:17
Acetaminophen [Tylenol] 1,000 mg PO NOW STA
02/28/25 21:29
Urinalysis Reflex To Culture Urgent
Date Specimen was Collected: 02/28/25
Time Specimen was Collected: 21:28
Urine Microscopic Reflex Cult Urgent
Blood Culture Q20M
SANDRA Source: Blood/Venous
Specimen Description:
Comment: Urgent from separate sites. If patient screens positive for possible sepsis
Urine Culture Urgent
SANDRA Source: U
Specimen Description:
Date Specimen was Collected: 02/28/25
Time Specimen was Collected: 21:28
02/28/25 21:58
CR Chest - 2 Views Urgent
Comment:
Reason For Exam: fever
02/28/25 22:08
COVID-19 Antigen Urgent
Source: Nasal Swab
CPK Isoenzyme Urgent
02/28/25 22:30
0.9% Sodium Chloride 1000 ml [Nss] 1,000 ml IV Wide Open mls/hr
02/28/25 23:02
Piperacillin/Tazo 4.5 Gram [Zosyn] 4.5 gram in 100 ml IV NOW
02/28/25 23:19
Consult Surgery [SURGICAL CONSULT] Urgent
Consulting Provider: Michael Ruiz
Was physician already notified: Yes
Reason for consult: acute cholecystitis
02/28/25 23:20
0.9% Sodium Chloride 1000 ml [Nss] 1,000 ml IV BOLUS
03/01/25 00:42
Admit/Transfer Patient As Directed
Co-Sign Provider:
Level of Care: Inpatient admission
Assign to:: Telemetry
Physician / Group: Keshav
Diagnosis: Cholecystitis, Sepsis
Reason for Telemetry: Arrhythmia
Date to Stop Telemetry: 03/04/25
Time to Stop Telemetry: 11:00
Reason for Hospitalization: Cholecystitis, Sepsis
Expected length of stay greater than two midnights?: Yes
ELOS- Estimated Length of Stay in days: 3
I certify the patient meets the requirements for IP care: Yes
PRN Pain Medication Management As Directed
May give lesser potent ordered pain med per pt: Yes
preference::
Protocol:: Medication orders for pain may be administered in a
manner that supports deferring to patient preference
when the pt is:
- Requesting an ordered lesser potent pain medication.
Least to most potent pain medications are defined
as: acetaminophen < NSAID < tramadol < opioids
(morphine, oxycodone, hydromorphone).
- Requesting a lesser dose of the same medication IF
ORDERED.
- Requesting a less intrusive route of administration
if both routes are prescribed by the provider (PO <
IV).
03/01/25 00:43
Code Status As Directed
Resuscitation Status: Do not resuscitate
Reached after discussion with pt or family/Healthcare POA: Yes
DNR Bracelet Application ONCE
03/01/25 00:54
HYDROmorphone [Dilaudid] 0.5 mg IV Q4HPRN PRN
03/01/25 02:54
0.9% Sodium Chloride 1000 ml [Nss] 1,000 ml IV 100 mls/hr
Acetaminophen [Tylenol] 650 mg PO Q4HPRN PRN
Albuterol Nebs [Ventolin Nebules] 2.5 mg INH R Q4HPRN PRN
Dextrose 50%-Water [Dextrose 50% Syringe] 12.5 grams IV [id number] PRN
Glucagon [GlucaGen] 1 mg IM PRN PRN
Lorazepam [Ativan] 1 mg PO HSPRN PRN anxiety
Ondansetron Injectable [Zofran] 4 mg IV Q6HPRN PRN
03/01/25 02:54
Activity As Directed
Activity Level: Ambulate
With Assistance
Bedside Glucose Monitoring As Directed
Frequency: AC&HS
Additional Instructions:: Change to q6h if pt on TPN, tube feeding or not eating
Bladder Scan As Directed
Follow Bladder Retention/Intermittent Cath Algorithm?: Yes
PRN if no void in __ hours: 6
Frequency: Per Retention Algorithm
If Bladder Scan Result >: 400
then:: Straight cath
I/O [Intake/ Output] As Directed
Frequency: Per unit guidelines
Pneumatic Compression Sleeves As Directed
Type: Knee high
Straight Cath As Directed
Frequency: Per Retention Algorithm
Additional Instructions: straight cath as needed per acute urinary retention algorithm for 24 hrs
Additional Instructions: for bladder scan greater than 400 mL
Vital Signs As Directed
Frequency: Per unit guidelines
Weight As Directed
Frequency: Daily
Oxygen Therapy [O2 Therapy] [RESP] Routine
Titrate/Wean O2 to maintain O2 sat greater than (%): 94
DX Deep Vein Thrombosis Video Routine
03/01/25 03:07
HYDROmorphone [Dilaudid] 0.5 mg IV Q3HPRN PRN
03/01/25 04:01
Pt Screening Request from [facility] Routine
03/01/25 Breakfast
NPO
Allow oral meds: Yes
Allow clear liquids: Sips of Clears
Basic Metabolic Panel IN AM
Complete Blood Count/No Diff IN AM
LFT [Vmswk-Oufh-Hjzxhhm] IN AM
Piperacillin/Tazo 3.375 Gram [Zosyn] 3.375 gram in 50 ml IV Q6H
03/01/25 07:30
Insulin Aspart Corrective Low [Novolog Flexpen-Low Resistance] See Protocol SC AC
03/01/25 08:00
0.9% Sodium Chloride [Nss (Preservative Free)] 10 ml IV DAILY
Amlodipine [Norvasc] 5 mg PO DAILY
Insulin Aspart Corrective Low [Novolog Flexpen-Low Resistance] See Protocol SC Q6
Pantoprazole [Protonix IV] 40 mg IV DAILY
03/01/25 11:40
Bupivacaine 0.25%Pf/Epinephrin [Sensorcaine-Epi 0.25%-0.0005] 30 ml .ROUTE .STK-MED ONE
03/01/25 11:59
Dexamethasone Sod Phosphate [Decadron] 20 mg .ROUTE .STK-MED ONE
Lidocaine 2% Mpf [Xylocaine Mpf 2%] 100 mg .ROUTE .STK-MED ONE
Ondansetron Injectable [Zofran] 4 mg .ROUTE .STK-MED ONE
Propofol [Diprivan] 20 ml .ROUTE .STK-MED
Rocuronium Oran [Rocuronium] 100 mg .ROUTE .STK-MED ONE
03/01/25 12:02
Midazolam HCl [Versed] 2 mg .ROUTE .STK-MED ONE
03/01/25 12:03
Fentanyl Citrate/Pf [Sublimaze] 100 mcg .ROUTE .STK-MED ONE
03/01/25 12:31
Fentanyl Citrate/Pf [Sublimaze] 25 mcg IV [id number] PRN
HYDROmorphone [Dilaudid] 0.25 mg IV PACU-Q5MPRN PRN
HYDROmorphone [Dilaudid] 0.5 mg IV PACU-Q5MPRN PRN
Ondansetron Injectable [Zofran] 4 mg IV PACU-ONCEPRN PRN
Prochlorperazine [Compazine] 5 mg IV PACU-ONCEPRN PRN
Notify MD As Directed
Notify physician if: for SDS patients with known or suspected sleep obstructive sleep apnea, monitor in the
PACU.
Notify MD for any apneic/desaturation episodes
O2 Therapy [RESP] Urgent
Titrate/Wean O2 to maintain O2 sat greater than (%): 92
Special Instructions: -Provide supplemental oxygen to achieve O2 sat of 92% or greater.
-After 15 min, may wean O2 and discontinue if patient is able to maintain O2 sat of 92%
or greater during recovery period.
If patient is a discharge home, without oxygen therapy, notify anestheiologist if
unable to maintain O2 SAT of 92% or greater on room air for MD clearance.
Pulse Ox/cont/shift [RESP] Urgent
Quantity: 1
Special Instructions: continuous Spo2 monitor with alarm set to 92%
03/01/25 12:45
Normosol (Mult Electrolytes) [Normosol-R/Plasmalyte-A] 1,000 ml IV PER PROTOCOL
03/01/25 13:01
Request for Physical Therapy [NOTICE] Routine
03/01/25 13:04
Fentanyl Citrate/Pf [Sublimaze] 100 mcg .ROUTE .STK-MED ONE
03/01/25 13:09
HYDROmorphone [Dilaudid] 1 mg .ROUTE .STK-MED ONE
03/01/25 13:13
Acetaminophen 1000MG/100Ml [Ofirmev] 1,000 mg in 100 ml .ROUTE .STK-MED
03/01/25 13:19
OR Pathology Routine
Pre-Operative Diagnosis: Gangrenous Acute Active Cholecystitis with Rasheeda-hepatic abscess
Operative Procedure: Laparoscopic Cholecystectomy
Surgeon: Joseph
Circulating Nurse: Vijay
Specimen Type: Gallbladder
03/01/25 13:23
Sugammadex Sodium [Bridion] 200 mg .ROUTE .STK-MED ONE
03/01/25 13:32
Tranexamic Acid 1000 mg/100 ml [Tranexamic Acid] 1,000 mg in 100 ml .ROUTE .STK-MED
03/04/25 11:00
DC Protocol for Telemetry ONCE
Abnormal Lab Results
02/28/25 02/28/25 02/28/25
21:05 21:29 22:08
WBC 19.0 H 10^3/uL
(4.8-10.8)
MPV 11.7 H fL
(7.4-10.4)
Abs Immat Gran (auto) 0.2 H 10^3/uL
(0-0.05)
Absolute Neuts (auto) 15.4 H 10^3/uL
(1.4-6.5)
Absolute Monos (auto) 2.1 H 10^3/uL
(0.1-0.6)
Immature Gran % 0.9 H %
(0-0.5)
Neutrophils % 81.0 H %
(42.2-75.2)
Lymphocytes % 6.5 L %
(20.5-51.1)
Monocytes % 11.2 H %
(1.7-9.3)
Sodium 128 L mmol/L
(135-145)
Carbon Dioxide 19 L mmol/L
(22-30)
Glucose 277 H mg/dl
(70-99)
Total Bilirubin 1.4 H mg/dl
(0.2-1.3)
AST 14 L U/L
(17-59)
Total Creatine Kinase 31 L U/L
(55-170)
Total Protein
Albumin
Urine Ketones 3+ A
(Negative)
Ur Occult Blood Reflex 2+ A
(Negative)
Urine RBC 3-6 A /HPF
(0-2)
Urine Bacteria (Reflex) Many A
(Negative)
Urine Glucose 4+ A
(Negative)
Urine Albumin (Reflex) 3+ A
(Neg - Trace)
POC Glucose
03/01/25 03/01/25 03/01/25
06:00 06:27 12:07
WBC 18.0 H 10^3/uL
(4.8-10.8)
MPV 11.5 H fL
(7.4-10.4)
Abs Immat Gran (auto)
Absolute Neuts (auto)
Absolute Monos (auto)
Immature Gran %
Neutrophils %
Lymphocytes %
Monocytes %
Sodium 133 L mmol/L
(135-145)
Carbon Dioxide 20 L mmol/L
(22-30)
Glucose 239 H mg/dl
(70-99)
Total Bilirubin 1.5 H mg/dl
(0.2-1.3)
AST 12 L U/L
(17-59)
Total Creatine Kinase
Total Protein 5.8 L g/dl
(6.3-8.2)
Albumin 3.2 L g/dl
(3.5-5.0)
Urine Ketones
Ur Occult Blood Reflex
Urine RBC
Urine Bacteria (Reflex)
Urine Glucose
Urine Albumin (Reflex)
POC Glucose 229 H mg/dl 211 H mg/dl
(70-99) (70-99)
03/01/25 06:00
03/01/25 06:00
Vital Signs
Initial and Last Documented VS:
Initial Vital Signs
BP
168/96
02/28/25 20:53
Last Documented Vital Signs
Temp Pulse Resp BP Pulse Ox
98.2 F 84 18 147/69 95
03/04/25 03:05 03/04/25 03:05 03/04/25 03:05 03/04/25 03:05 03/04/25 03:05
MDM/Problems Addressed
Differential Diagnosis Includes:
The differential diagnosis includes, in no particular order and is not limited to:
1. Dehydration.
2. Electrolyte imbalance.
3. Withdrawal from Suboxone.
4. Neuropathy related to diabetes.
5. Myalgia or myopathy.
6. Abdominal obstruction or ileus.
7. Infection or sepsis.
8. Urinary retention.
MDM/Problems Addressed:
59-year-old male with history of COPD/asthma, GERD, HTN, HLD, IDDM, CKD, Lyme disease with chronic generalized pain, presents with significant left upper quadrant abdominal pain, gradually worsening over the past 3 days abdominal distention, nausea
and vomited once yesterday. He feels constipated, his last BM was 2 days ago.
States for the past 3 weeks his legs have been weak and feeling 'tight.' At baseline, he typically walks with a shuffling gait and uses a walker, he is unable to climb stairs.
He has felt tightness in his neck and upper back muscles, past few days, tried Bengay but this is not helping
He weaned himself off of Suboxone 2 mg 3 times daily over the past 3 weeks because he does not want to take it anymore but he did take 2 mg once yesterday and once the day before for his abdominal pain.
He also 3 weeks ago stopped all of his psych medications which include Wellbutrin, Paxil and Caplyta
He states he medications he takes now is metformin 1000 twice daily and Mounjaro which she has been on for quite some time.
He saw his endocrine Dr. Lisa 7 days ago after having blood work done and was told he was 'very dehydrated,' and was referred back to his PCP which he never followed up with.
Febrile 102.8
EKG: Sinus tachycardia
Acute Issues:
- Weakness and tightness in legs.
- Neck and muscle tightness.
- Abdominal pain and distention.
- Nausea and vomiting.
- Difficulty breathing.
Chronic Issues:
- Chronic Lyme disease associated with generalized pain.
10:15 PM:
CBC: WBC 19.0
CMP: Sodium 128 most likely from dehydration
Lactic WNL
U/A: Neg
COVID-negative
11:00 p.m.
Temp 101.8 HR 105 BP 168/76
Plan: Admit: awaiting CT abd/pelvis results
Remains comfortable
Zosyn ordered
11:[address] abd/pelvis w IV contrast radiology report read:
IMPRESSION:
Findings consistent with acute cholecystitis. There are mildly prominent hyperdensities along the superior aspect of the gallbladder neck which may be vascular or prominent, hyperdense lymph nodes.
Hepatic steatosis.1.6 cm left adrenal nodule which likely represents an adenoma.
There is similar appearance of the peripherally calcified, exophytic cyst along the superior pole right kidney.
*Pulse Oximetry
SaO2: 97
Oxygen Mode of Delivery: Room air
Patient hypoxic: no
*EKG
EKG Intrepretation Date: 02/28/25
Interpretation: abnormal
Heart Rate: 115
Rate: tachycardiac
Rhythm: sinus
Dubach: normal axis
Interval: normal interval
QRS Pattern: normal QRS
Ischemia: no ischemia
*Critical Care Note
Total Time (30-74mins, 75-104mins- exclusive of procedures): Not Applicable
ED Attending Note
-
Portions of this chart may have been created with voice recognition software.� Occasional wrong word or��sound alike� substitutions may have occurred due to the inherent limitations of voice recognition software.
Discharge Plan
Departure
Patient Disposition: Admit
Date of Disposition: 02/28/25
Time of Disposition: 23:22
Admit to: Med/Surg
Presentation/result/management discussed w/ accepting MD/DO: Hospitalist
Condition: Fair
Discharge Problem:
Acute dehydration, Acute cholecystitis
Interventions
Interventions:
*Risk Screen - Suicide Last Done: 02/28/25 21:05
*General Assessment Last Done: 02/28/25 21:05
*Neglect/Abuse Screening Last Done: 02/28/25 21:05
*ED- Fall Risk Assessment Last Done: 02/28/25 21:05
*ED COVID-19 Vaccine History Last Done: 03/01/25 02:30
*Nursing Disposition Last Done: 03/01/25 02:30
LE-Naum[facility]-Wdckqcxghc Assessment Last Done: 03/01/25 00:15
Discharge Date and Time
Discharge Date/Time: 03/01/25 02:32
[2025-02-28] MEDS: TYLENOL 1000 MG PO (21:18)
[2025-02-28] MEDS: ZOFRAN 4 MG IV (21:25)
[2025-02-28] MEDS: DILAUDID 1 MG IV (21:26)
[2025-02-28 21:30] VITALS: BP 168/85
[2025-02-28 21:51] LABS: Glucose 277 mg/dl (70-99)
[2025-02-28 21:52] LABS: ALT (SGPT) 18 U/L (0-50); AST (SGOT) 14 U/L (17-59); Albumin 3.9 g/dl (3.5-5.0); Alkaline Phosphatase 69 U/L (38-126); Blood Urea Nitrogen 17 mg/dl (9-20); Calcium 9.6 mg/dl (8.4-10.2); Carbon Dioxide 19 mmol/L (22-30); Estimated Creatinine Clearance 125 ml/min; Lipase 162 U/L (23-300); Total Protein 6.9 g/dl (6.3-8.2); eGFR > 60.00
[2025-02-28 22:00] VITALS: BP 168/76
[2025-02-28 22:05] LABS: Chloride 98 mmol/L (98-107); Potassium 4.4 mmol/L (3.5-5.1); Sodium 128 mmol/L (135-145)
[2025-02-28 22:13] LABS: Urine Character Clear (Clear)
[2025-02-28 22:19] LABS: Urine Squamous Cell 0-2 /LPF (Few)
[2025-02-28 22:20] LABS: Urine White Cell 0-2 /HPF (0-5)
[2025-02-28] MEDS: NSS 1000 IV (22:30)
[2025-02-28 22:40] LABS: COVID-19 Antigen Negative (Negative)
[2025-02-28] MEDS: ZOSYN 100 IV (23:26)
[2025-03-01] VITALS (19 sets, daily range): BP systolic 118–165; BP diastolic 70–96; BMI 32.4; BMI 32.7
[2025-03-01] MEDS: NSS 1000 IV ×3 (00:19→17:30)
--- NOTE | 2025-03-01 00:46 | HPS.HSE ---
Addendum entered and electronically signed by Demetris Parr DO 03/01/25 02:18:
A/P:
L Adrenal Incidentaloma
- Seen on today's CT.
- Further follow-up / evaluation as an outpatient after acute issues resolved.
Original Note:
Family Physician
-
Family Physician: Noble Beckham
Chief Complaint
-
Weakness
History of Present Illness
Patient is a 59y M with PMH significant for chronic pain, gait dysfunction, DM-II and COPD who presents to ED complaining of weakness. Patient states that he always has issues with LE weakness / unsteady gait due to Lyme disease since 2006. He
notes that he has been more weak than usual over the past several days. He states 'my caregiver says I threw up last night' - though he states he does not recall this? He complains of abdominal pain - mostly in the LUQ - for the past 2 days. He
denies any fevers / chills. He denies any diarrhea and notes that he has not moved his bowels in 2 days.
Patient states that he stopped all of his medications at least one month ago.
He also weaned himself from Suboxone 3 tabs daily to none. He was off of this entirely for about one week, but states that he did take one tab yesterday due to pain.
Other than this, he takes only Ativan 1mg at bedtime.
Medical History
Past Medical History
Past Medical History: Reports Other
Additional Past Medical History:
Hypertension
DM-II
COPD
CKD III
Anxiety / Depression
Chronic Pain Syndrome
Chronic Gait Dysfunction
BPH
Lyme Disease (2006)
Past Surgical History: Reports None
Social History
Tobacco: Smoker (Current every day smoker.)
Alcohol: None
Drug: None
Family History
Family History: Not pertinent
Allergies / Home Medications
Allergies reflects when Allergies were last updated in [facility].
Home Medications with original date entered in [facility]
Allergy/Medication List:
Allergies
Allergy/AdvReac Type Severity Reaction Status Date / Time
adhesive Allergy itching/rash Verified 02/28/25 21:04
- paper
tape
gabapentin Allergy Swelling Verified 02/28/25 21:04
hydrochlorothiazide Allergy blisters Verified 02/28/25 21:04
on head
pregabalin Allergy scabs on Verified 02/28/25 21:04
head
Home Medications
buprenorphine 8 mg-naloxone 2 mg sublingual film 3 film sublingual DAILY Substance Abuse 03/11/23
lorazepam 1 mg tablet 1 mg PO DAILYPRN PRN anxiety 03/11/23
Review of Systems
-
History Source: Patient
A 12 point ROS was completed and negative except as noted: Yes
Constitutional: Reports Fatigue; Denies Fever or Chills
EENT: Denies Sore Throat
Respiratory: Denies Cough or Trouble Breathing
Cardiac: Denies Chest Pain or Palpitations
Abdomen/GI: Reports Abdominal Pain, Nausea, Vomiting and Constipated; Denies Diarrhea, Bloody Stools or Black Stools
: Denies Dysuria or Frequency
Musculoskeletal: Denies Joint Pain or Edema
Neurological: Reports Weakness; Denies Dizzy or Headache
Psych: Denies Depression or Anxiety
Physical Exam
Vital Signs
Vital Signs
Temp Pulse Resp BP Pulse Ox
101.8 F H 94 23 132/85 96
02/28/25 23:00 03/01/25 00:30 03/01/25 00:30 03/01/25 00:30 03/01/25 00:30
Physical Exam
General: Other (59y M diaphoretic and in mild distress due to pain.)
HEENT: Moist mucous membranes and Other (Thick neck.)
Respiratory: Clear; No Wheezes, Rales or Rhonchi
Cardiac: S1/S2 and Regular Rhythm; No Murmur
GI: Other (Obese, pos tenderness upper abdomen with voluntary guarding. Pos BS.)
Musculoskeletal: No Clubbing, No Cyanosis, No Edema and Other (varicose veins / chronic venous stasis skin changes.)
Neuro: AO x 3
Laboratory Results
-
02/28/25 21:05
02/28/25 21:05
Laboratory Results
Lactic Acid 1.1 mmol/L (0.7-2.0) 02/28/25 21:05
Total Bilirubin 1.4 mg/dl (0.2-1.3) H 02/28/25 21:05
AST 14 U/L (17-59) L 02/28/25 21:05
ALT 18 U/L (0-50) 02/28/25:
Alkaline Phosphatase 69 U/L (38-126) 02/28/25 21:05
Lipase 162 U/L (23-300) 02/28/25 21:05
Impression/Plan
-
A/P: Patient is a 59y M with PMH significant for hypertension, DM-II and chronic pain / disability who presents to ED complaining of abdominal pain and weakness.
Acute Cholecystitis
Sepsis secondary to the above
- Admit for further evaluation and treatment.
- Patient presents with fever, tachycardia, tachypnea, leukocytosis and CT scan showing cholecystitis.
- NPO, IVFs, IV abx. Pain control / supportive care.
- Surgery evaluation for additional recommendations.
- Follow for clinical improvement.
Hyponatremia
- Likely secondary to hypovolemia / sepsis.
- Follow for improvement with IVF replacement.
Benign Hypertension
- BP elevated in the ED. Resume prior amlodipine.
- Pain control as noted above.
- Adjust med regimen as needed for normotension.
DM-II
- Uncontrolled. Follow glucose and cover with SSI as needed.
- Update A1C.
- Resume basal : bolus insulin regimen once diet resumed.
COPD without Acute Exacerbation
- Stable at present. Albuterol PRN.
- Encourage smoking cessation.
Anxiety / Depression
Chronic Pain Syndrome
Chronic Gait Dysfunction
- Off of all meds except for PRN Ativan which we will continue.
- Consider restarting buprenorphine for pain control prior to discharge if needed.
- PT eval once clinically improved.
DVT Prophylaxis: SCDs
Code Status: DNR
[2025-03-01] MEDS: DILAUDID 0.5 MG IV ×4 (00:58→09:41)
[2025-03-01] MEDS: TYLENOL 650 MG PO (03:22)
[2025-03-01] MEDS: ZOFRAN 4 MG IV ×2 (03:22→19:58)
[2025-03-01] MEDS: ATIVAN 1 MG PO (03:22)
[2025-03-01] MEDS: VENTOLIN NEBULES 2.5 MG INH (03:30)
[2025-03-01] MEDS: ZOSYN 50 IV ×3 (05:54→23:03)
[2025-03-01 06:21] LABS: Hematocrit 41.8 % (39.0-52.0); Hemoglobin 14.8 g/dL (13.0-18.0); Mean Corp Hgb Conc. 35.4 g/dL (33.0-37.0); Mean Corpuscular Volume 84.8 fL (80.0-94.0); Platelet Count 153 10^3/uL (130-400); Red Cell Dist. Width 13.5 % (11.5-14.5)
[2025-03-01 06:29] LABS: Glucose - Point of Care 229 mg/dl (70-99)
[2025-03-01 07:03] LABS: ALT (SGPT) 15 U/L (0-50); AST (SGOT) 12 U/L (17-59); Albumin 3.2 g/dl (3.5-5.0); Alkaline Phosphatase 53 U/L (38-126); Blood Urea Nitrogen 14 mg/dl (9-20); Calcium 8.6 mg/dl (8.4-10.2); Carbon Dioxide 20 mmol/L (22-30); Chloride 105 mmol/L (98-107); Estimated Creatinine Clearance > 125 ml/min; Glucose 239 mg/dl (70-99); Potassium 4.2 mmol/L (3.5-5.1); Sodium 133 mmol/L (135-145); Total Protein 5.8 g/dl (6.3-8.2); eGFR > 60.00
--- NOTE | 2025-03-01 08:41 | W.PN.HOSP.TC ---
Today's Communication/Plan
-
see bold
Assessment / Plan
Assessment / Plan
59y M with PMH significant for hypertension, DM-II and chronic pain / disability who presents to ED complaining of abdominal pain and weakness.
Acute Cholecystitis
Sepsis secondary to the above
- Patient presents with fever, tachycardia, tachypnea, leukocytosis and CT scan showing cholecystitis.
- Appreciate general surgery input, for laparoscopic cholecystectomy today
- Continue NPO, IVFs, IV abx. Pain control / supportive care.
- Trend fever and white count
Hyponatremia
- Monitor
Benign Hypertension
- Continue amlodipine 5 mg daily, titrate as needed
DM-II
- Uncontrolled. Follow glucose and cover with SSI as needed.
- Update A1C.
- Resume basal : bolus insulin regimen once diet resumed.
COPD without Acute Exacerbation
- Stable at present. Albuterol PRN.
- Encourage smoking cessation.
Anxiety / Depression
Chronic Pain Syndrome
Chronic Gait Dysfunction
- Off of all meds except for PRN Ativan which we will continue.
- Consider restarting buprenorphine for pain control prior to discharge if needed.
- PT eval once clinically improved.
L Adrenal Incidentaloma
- Seen on CT.
- Further follow-up / evaluation as an outpatient after acute issues resolved
Obesity due to excess calories
- Affects all aspects of care
DVT Prophylaxis: SCDs
Code Status: DNR
Physical Exam
General: Obese, appears to not feel well but in no acute distress
HEENT: Normocephalic, Atraumatic, EOMI, MMM
Respiratory: Clear to Auscultation bilaterally
Cardiac: Normal S1/S2, Regular Rate and Rhythm
GI: Soft, tenderness in the upper quadrants, Nondistended, Normal Bowel Sounds
Extremities: No Clubbing, Cyanosis, or Edema
Neuro: Nonfocal/Grossly Intact
Psych: Calm, Cooperative
Anticipated Discharge: > 48 hours
Subjective/Interval History
-
Date of Service: March 01, 2025
Objective Data
-
Labs:
Laboratory Results
02/28/25 03/01/25
21:05 06:00
WBC 19.0 H 18.0 H
Hgb 16.7 14.8
Hct 46.1 41.8
Plt Count 177 153
Sodium 128 L 133 L
Potassium 4.4 4.2
Chloride 98 105
Carbon Dioxide 19 L 20 L
BUN 17 14
Creatinine 0.8 0.7
Glucose 277 H 239 H
Calcium 9.6 8.6
Total Bilirubin 1.4 H 1.5 H
AST 14 L 12 L
ALT 18 15
Alkaline Phosphatase 69 53
Vital Signs:
Vital Signs
Temp Pulse Resp BP Pulse Ox
99.2 F 100 18 118/70 96
03/01/25 07:15 03/01/25 07:15 03/01/25 07:15 03/01/25 07:15 03/01/25 07:15
I&O
02/28/25 03/01/25 03/02/25
06:59 06:59 06:59
Intake Total 120 / 120
Output Total 350 / 350
Balance -230 / -230
[2025-03-01] MEDS: NSS (PRESERVATIVE FREE) 10 ML IV (09:40)
[2025-03-01] MEDS: NORVASC PO (09:40)
[2025-03-01] MEDS: PROTONIX IV 40 MG IV (09:40)
[2025-03-01] MEDS: NOVOLOG FLEXPEN-LOW RESISTANCE 2 UNITS SC ×2 (09:41→18:01)
--- NOTE | 2025-03-01 09:58 | CM ---
Addendum entered by Royal Hernandez 03/01/25 10:05:
Pt is admitted with OBS status. OBS status reviewed with the pt, pt expressed his understanding, declined to sign. ENGEL letter placed on chart, pt has a copy.
Original Note:
CM following re: discharge planning.
Reviewed pt's chart, met with pt.
Pt is a 59 year old male, admitted with primary dx of Acute Cholecystitis, OR today. PMH includes: chronic pain, gait dysfunction, DM-II and COPD.
Pt reports he lives alone 2SH and has 24/7 caregiver services provided by [facility]. Pt reports he ambulates with a walker and a cane, known to Karen EUCEDA.
PCP: Noble Beckham
Pharmacy: [facility]
D/c plan: home with resumptions of 24/7 caregiver services.
CM will follow with discharge plan updates as hospitalization progresses
--- NOTE | 2025-03-01 10:12 | CON.GS ---
Addendum entered and electronically signed by Michael Ruiz MD 03/01/25 12:38:
Patient seen and examined with certified surgical tech/first assistant this a.m. Agree with documented consultation note consistent with my examination evaluation.
HPI: 59-year-old male presenting with a 3-day history of worsening epigastric abdominal pain towards the right of midline. There is also abdominal bloating, distention and tightness with intermittent nausea and vomiting. Due to the persistence of
his symptoms he presented for emergency department evaluation as outlined which was consistent with probable acute cholecystitis.
Patient was unaware of the presence of gallstones. No previous episodes of abdominal pain similar to this in the past. No significant past abdominal surgical history.
Past medical history notable for COPD/asthma, GERD, hypertension, hyperlipidemia, type 2 diabetes, CKD stage III, history of Lyme, chronic pain syndrome.
Afebrile sinus tachycardia normotensive
NAD AAO x 3 but acutely ill-appearing
ABD: Softly protuberant, tenderness to palpation in the epigastrium and right upper quadrant with voluntary guarding.
Laboratory testing notable for a white blood cell count of 18, mild hyponatremia, elevated bilirubin of 1.5 but normal remaining LFTs. Normal lipase.
Imaging studies personally reviewed and interpreted as well as radiologist report. Large distended gallbladder with surrounding inflammatory changes consistent with probable acute calculus cholecystitis.
Assessment/plan: 59-year-old male with acute calculus cholecystitis and secondary intractable abdominal pain/nausea vomiting as well as leukocytosis.
Advised patient regarding indications for cholecystectomy at this time. We discussed alternative management options including attempted nonoperative management or percutaneous cholecystostomy tube drainage as a bridge to definitive surgery. The
risks and benefits of these various approaches was fully reviewed. After our discussions the patient advises that he is in agreement and prefers to proceed with definitive cholecystectomy.
Laparoscopic cholecystectomy with possible cholangiogram was fully reviewed in detail with the patient including the operative technique, alternative treatment options, benefits and potential risks such as but not limited to bleeding, infectious and
wound related complications, iatrogenic injury to surrounding viscera, bile duct injury, bile leak, postcholecystectomy fatty food intolerances. We discussed the typical postoperative recovery pending operative findings. Any of the patient's
concerns or questions were fully addressed and written informed consent was obtained.
Patient is on the OR schedule for cholecystectomy today. Supportive care awaiting OR availability. Continue Zosyn. Updated/discussed with hospitalist.
Original Note:
Consultation
-
Date/Time Consultation Requested: 02/28/2025
Date/Time Consultation Performed: 03/01/2025
Requesting Provider: Demetris Parr
Performing Provider: Michael Ruiz
Reason for Consultation: Abdominal pain d/t Acute Cholecystitis
Medical History
-
Chief Complaint: 59 y M w/ PMH of HTN and DM-II c/o abdominal pain and weakness
History of Present Illness:
Patient is a 59y M with PMH significant for COPD/Asthma, GERD, HTN, HLD, DM-II, CKD stage III, and Lyme presented to ED complaining of abdominal pain and weakness. Patient states this abdominal pain, nausea, and vomiting had been worsening over
the course of the last 3 days. He also states hes been having a generalized feeling of tightness and weakness in his legs during this time as well. Patient states the he rarely moves around due to his pain/disability, and when he does he has to use
a walker. He states that Bengay did not alleviate the muscle pain in his neck and upper back. He admits the he has been slowly weaning himself off of his Suboxone medication over the last 3 weeks, but does admit to taking one dose of 2 mg the day
before and one dose the day of his admission to ED. Patient also states that he hs stopped taking his psychiatric medication (Wellbutrin, Paxil, Calypta), and has been having hallucinations ever since. Patient states that the only medication he
takes now is one dose of Ativan before bedtime. Of note is the patient was on a significant number of narcotics before his PCP was arrested 3 years ago. Ever since, he states he's only been on the Suboxone. Today patient rates his pain a 4/10 d/t
having just received his pain medication. He denies any current n/v/f/d. He states he has had very little flatus since admission. Patient emphasizes the fact the he likes fat/greasy foods and admitted to having a meal of chris parker the day
before he was admitted. He expressed concern that he wont be able to resume his usual diet of fatty/oily foods.
Past Medical History
Past Medical History: Asthma, COPD, GERD, HTN, Hypercholesterolemia, IDDM, Psychiatric (Chronic pain syndrome) and Renal Failure (CKD Stage 3)
Past Surgical History: None
Social History
Tobacco: Smoker (Current everyday smoker)
Alcohol: None
Drug: None
Employment: Disabled
Family History
Family History: Reviewed & Not Pertinent
Allergies / Home Medications
Allergy/AdvReac Type Severity Reaction Status Date / Time
adhesive Allergy itching/rash Verified 02/28/25 21:04
- paper
tape
gabapentin Allergy Swelling Verified 02/28/25 21:04
hydrochlorothiazide Allergy blisters Verified 02/28/25 21:04
on head
pregabalin Allergy scabs on Verified 02/28/25 21:04
head
�Medication �Instructions �Recorded �Confirmed �Type
buprenorphine 8 mg-naloxone 2 mg 3 film sublingual DAILY Substance 03/11/23 03/01/25 History
sublingual film Abuse
lorazepam 1 mg tablet 1 mg PO DAILYPRN PRN anxiety 03/11/23 03/01/25 History
Review of Systems
-
History Source: Patient
All other systems: Negative unless noted
Constitutional: Fatigue
EENT: Other (Thick neck)
Abdomen/GI: Abdominal Pain, Nausea, Vomiting and Constipated
Musculoskeletal: Other (weakness)
Skin: Other (Varicose veins)
A 10 point review of systems was completed, and was negative except as per HPI.
Physical Exam
Vital Signs
Temp Pulse Resp BP Pulse Ox
99.2 F 100 18 118/70 96
03/01/25 07:15 03/01/25 07:15 03/01/25 07:15 03/01/25 07:15 03/01/25 07:15
02/28/25 03/01/25 03/02/25
06:59 06:59 06:59
Actual Weight 109.344 kg
Body Mass Index (BMI) 32.7
Lab Results
c003/01/25 06:00
03/01/25 06:00
WBC 18.0 10^3/uL (4.8-10.8) H 03/01/25 06:00
Hgb 14.8 g/dL (13.0-18.0) 03/01/25 06:00
vHct 41.8 % (39.0-52.0) 03/01/25 06:00
Plt Count 153 10^3/uL (130-400) 03/01/25 06:00
Abs Immat Gran (auto) 0.2 10^3/uL (0-0.05) H 02/28/25 21:05
Neutrophils % 81.0 % (42.2-75.2) H 02/28/25 21:05
AFVSS
WBC cell count: (18.0 - H) ,Neutrophils elevated, Lymphocytes reduced. This indicates probable infectious/inflammatory process.
Physical Exam
General: Pain (Mild distress from pain)
HEENT: Normocephalic and Anicteric
Respiratory: Non Labored Respirations
Breast: Deferred by me
Neuro: AO x 3
Psych: Agitated
Data Reviewed
-
Radiology: Image Personally Visualized and interpreted
CT Scan: Report Reviewed by me and Discussed with Physician
Labs: Labs Reviewed by me and Discussed with Physician
Critical Care Time (in minutes): 30
Total Time Spent with Patient (in minutes): 40
Assessment / Plan
-
59 y/o M w/ PMH of COPD/Asthma, HTN, HLD, DM-II, CKD-3, and Lymes, presents with complaint of severe abdominal pain and naseau and vomiting over the past few days. Patient admitted to eating chris parker the day before he was admitted into the
ED.
Patient is in mild distress due to pain
Patient's elevated labs and CT results support the diagnosis of acute cholecystitis.
--NPO
--IVF
--Keep on Abx (Zosyn q6H)
--Continue pain meds (hydromorphone) prn
--Discontinue Ativan prior to surgery
--Patient is scheduled for laparoscopic cholecystectomy this afternoon
--Patient was educated on risk and post procedure protocol
--Patient was educated on diet restriction of oil/fatty foods for first few weeks post procedure.
[2025-03-01 12:09] LABS: Glucose - Point of Care 211 mg/dl (70-99)
[2025-03-01] MEDS: ZOSYN IV (12:36)
--- NOTE | 2025-03-01 12:39 | W.SUR.PREOP ---
Pre-Operative Surgical Note
-
I have examined this patient prior to the performance of the scheduled procedure.
The patient's condition is unchanged from the time of the current History and
Physical and the patient is able to undergo the scheduled procedure.
--- NOTE | 2025-03-01 15:23 | W.IMMPOSTOP ---
Addendum entered and electronically signed by Michael Ruiz MD 03/01/25 16:04:
#[id number]
Original Note:
Surgical Immed Post Op Note
-
Primary Surgeon: Michael Riuz MD
Assisting Surgeon: April MAXWELL
Pre-op Diagnosis: Acute calculus cholecystitis
Post-op Diagnosis: Gangrenous acute calculus cholecystitis with localized peritonitis; Rasheeda-hepatic abscesses
Procedure Performed: Laparoscopic cholecystectomy with intraoperative cholangiogram and drainage of rasheeda-hepatic abscesses
Anesthesia Type: GETA +0.25% Marcaine
Specimen / Cultures: Gallbladder/gallbladder wall for tissue culture
Estimated Blood Loss: 75 mL
Complications: None immediate
Operative Findings: Severely distended gallbladder completely encased in subacute omental and periduodenal inflammatory peel. Patchy gangrenous changes throughout the gallbladder wall. Gross purulence and contained abscess pockets around region of
gallbladder as well as posterior liver margin/liver capsule. Purulent pocket along subhepatic space adjacent to lesser curvature of the stomach. Intraoperative cholangiogram confirmed biliary anatomy, suspect filling defect in the cystic duct
likely represents air bubble but possible cystic duct stone. No common bile duct stone. Cystic duct mobilized and controlled/divided with Endo DEBI purple 30 mm stapler. Surgiflo utilized for assistance with hemostasis in the cystic triangle. 1 g
TXA administered at start of surgery.
Drains: 19 Hemanth in the subhepatic space towards the left upper quadrant
Plan: Clear liquid diet initially postop but await signs of GI recovery to advance
Supportive care with IV fluids, analgesics and antiemetics
Continue Zosyn; tissue culture pending from operation
Although source control with cholecystectomy given the degree of perihepatic infection and abscess pockets which appear to be along the liver capsule and potentially even a bit intrahepatic recommend 2-week course of postoperative antibiotics with
probable transition to Augmentin pending culture results.
Drain will likely be maintained for 5 to 10 days postop and not necessarily removed at time of discharge
Patient is contacted updated postoperatively via phone call
[2025-03-01 15:42] LABS: Glucose - Point of Care 259 mg/dl (70-99)
[2025-03-01] MEDS: NOVOLOG vial 4 UNITS SC (15:54)
[2025-03-01] MEDS: NOVOLOG FLEXPEN-LOW RESISTANCE SC (16:40)
--- NOTE | 2025-03-01 17:15 | PTCARENOTE ---
Patient returned to his room from [facility] post laparoscopic cholecystectomy.The patient is arousable but still drowsy.Vital signs are stable.all incisions are open to air without drainage.The patient is in his bed with the call sahni in reach.
[2025-03-01 18:02] LABS: Glucose - Point of Care 249 mg/dl (70-99)
[2025-03-01] MEDS: DILAUDID 1 MG IV ×2 (19:46→22:51)
[2025-03-01] MEDS: TORADOL 10 MG IV (19:59)
[2025-03-01 21:50] LABS: Glucose - Point of Care 440 mg/dl (70-99)
[2025-03-01 22:45] LABS: Glucose 448 mg/dl (70-99)
[2025-03-01] MEDS: NOVOLOG FLEXPEN 6 UNITS SC (23:06)
[2025-03-02] VITALS (7 sets, daily range): BP systolic 126–151; BP diastolic 71–88; PULSE 99; O2SAT 95
[2025-03-02] MEDS: VENTOLIN NEBULES 2.5 MG INH (01:08)
[2025-03-02] MEDS: NSS 1000 IV ×2 (01:36→10:39)
[2025-03-02] MEDS: DILAUDID 1 MG IV ×3 (01:36→08:20)
[2025-03-02] MEDS: ATIVAN 1 MG PO ×2 (01:51→22:18)
[2025-03-02 03:12] LABS: Glucose - Point of Care 273 mg/dl (70-99)
[2025-03-02] MEDS: NSS IV ×2 (03:20→23:11)
[2025-03-02] MEDS: ZOFRAN 4 MG IV (05:26)
[2025-03-02] MEDS: FLUSH (NSS) 1 FLUSH IV (05:27)
[2025-03-02] MEDS: ZOSYN 50 IV ×4 (05:27→23:27)
[2025-03-02] MEDS: TORADOL 10 MG IV ×2 (05:44→15:42)
[2025-03-02] MEDS: SPIRIVA RESPIMAT 2.5 MCG 2 PUFF INH (07:25)
[2025-03-02] MEDS: SYMBICORT 80/4.5 MCG INHALER 2 PUFF INH ×2 (07:25→17:44)
[2025-03-02 07:51] LABS: Glucose - Point of Care 294 mg/dl (70-99)
[2025-03-02 07:52] LABS: Hematocrit 40.4 % (39.0-52.0); Hemoglobin 14.6 g/dL (13.0-18.0); Mean Corp Hgb Conc. 36.1 g/dL (33.0-37.0); Mean Corpuscular Volume 85.1 fL (80.0-94.0); Platelet Count 177 10^3/uL (130-400); Red Cell Dist. Width 13.7 % (11.5-14.5)
[2025-03-02] MEDS: NOVOLOG FLEXPEN-LOW RESISTANCE 3 UNITS SC (08:17)
[2025-03-02] MEDS: PROTONIX IV 40 MG IV (08:18)
[2025-03-02] MEDS: NSS (PRESERVATIVE FREE) 10 ML IV (08:18)
[2025-03-02] MEDS: NORVASC 5 MG PO (08:18)
[2025-03-02 08:26] LABS: ALT (SGPT) 42 U/L (0-50); AST (SGOT) 26 U/L (17-59); Albumin 3.1 g/dl (3.5-5.0); Alkaline Phosphatase 60 U/L (38-126); Blood Urea Nitrogen 18 mg/dl (9-20); Calcium 8.4 mg/dl (8.4-10.2); Carbon Dioxide 21 mmol/L (22-30); Chloride 108 mmol/L (98-107); Estimated Creatinine Clearance > 125 ml/min; Glucose 281 mg/dl (70-99); Magnesium 2.2 mg/dl (1.6-2.3); Potassium 4.1 mmol/L (3.5-5.1); Sodium 135 mmol/L (135-145); Total Protein 5.7 g/dl (6.3-8.2); eGFR > 60.00
--- NOTE | 2025-03-02 09:09 | W.PN.GS2 ---
Addendum entered and electronically signed by Thai Manuel MD 03/02/25 16:08:
I saw and examined the patient independently.
The resident's documentation was reviewed and I agree with the note, assessment and plan except where noted below.
Comment: This is a 59-year-old male postoperative day 1 from a laparoscopic cholecystectomy with intraoperative cholangiogram and drainage of a perihepatic abscess secondary to perforated gangrenous cholecystitis. Overall doing well, expected
postoperative course.
NG tube to low intermittent wall suction.
N.p.o., IV fluids, IV antibiotics (will plan for 2-week course).
GIAN to bulb suction
Pain and nausea control
DVT prophylaxis
Original Note:
Today's Communication / Plan
-
Keep on clears diet until nausea resolves
Continue with NG tube
Continue IVF
Antibiotics for 2 weeks
Monitor drain site and output
Monitor labs
Continue Lorazepam, Insulin Aspart, Albuterol, Ondansetron PRN
Continue DVT PPX (SCD)
Patient advised that he will be here for few more days for recovery
Patient educated on avoiding oily/fatty foods for first few weeks post op.
Assessment / Plan
-
59 y/o M who presented with acute cholecystitis is POD #1 s/p laparoscopic cholecystectomy w/ IOC and drainage of perihepatic abscess.
Provide patient with spirometer to help strengthen his breathing
Patient declined Nicotine patch
Keep NG tube in
Continue clears diet until nausea resolves
Continue IVF
Continue Antibiotics for 2 weeks
Continue to monitor drain site and output
Continue to monitor labs
Continue Lorazepam, Insulin Aspart, Albuterol, Ondansetron PRN
Continue DVT PPX (SCD)
Patient advised that he will be here for few more days for recovery
Patient educated on avoiding oily/fatty foods for first few weeks post op.
Time Spent
Total Time Spent with Patient (in minutes): 35
Subjective Data
-
Date of Service: March 02, 2025
59 y/o M who presented with complaints of n/v and abdominal pain for acute cholecystitis is POD #1 s/p laparoscopic cholecystectomy with IOC and drainage of gwendolyn-hepatic abscess. Patient had a PMH of COPD/Asthma, GERD, HTN, HLD, DM-II, CKD Stage
III, Lymes history and Chronic pain syndrome. Currently, patient states that he has some moderate nausea, has been feeling hot/cold, and has started passing a small amount of gas. Patient denies vomiting or having a bowel movement. Patient is in
obvious discomfort, rating his pain a 7/10, and visibly wheezing. Patient is interested in advancing his diet from clears to solids.
Objective Data
-
Intake and Output
03/01/25 03/02/25 03/03/25
06:59 06:59 06:59
Intake Total 120 / 120 2190 / 2190 480 / 480
Output Total 350 / 350 1125 / 1125
Balance -230 / -230 1065 / 1065 480 / 480
Intake:
Oral fluids 120 / 120 1265 / 1265 480 / 480
IV fluids (Total) 875 / 875
IV piggybacks 50 / 50
Output:
Drain Output (Total) 50 / 50
Right Lower Abdomen 50 / 50
Urine, Voided 350 / 350 1075 / 1075
Vital Signs
Temp Pulse Resp BP Pulse Ox
98.2 F 89 18 151/88 96
03/02/25 07:55 03/02/25 07:55 03/02/25 07:55 03/02/25 08:18 03/02/25 07:55
Lab Results
03/02/25 07:33
03/02/25 07:33
Calcium 8.4 mg/dl (8.4-10.2) 03/02/25 07:33
Magnesium 2.2 mg/dl (1.6-2.3) 03/02/25 07:33
Total Bilirubin 1.3 mg/dl (0.2-1.3) 03/02/25 07:33
Direct Bilirubin 0.3 mg/dl (0.0-0.4) 03/01/25 06:00
AST 26 U/L (17-59) 03/02/25 07:33
ALT 42 U/L (0-50) 03/02/25 07:33
Alkaline Phosphatase 60 U/L (38-126) 03/02/25 07:33
Total Protein 5.7 g/dl (6.3-8.2) L 03/02/25 07:33
Albumin 3.1 g/dl (3.5-5.0) L 03/02/25 07:33
Vitals: Afebrile/ normotensive
Labs: WBC trending downwards (13.6). Glucose is elevated (281).
Physical Exam
-
General: Acutely ill- appearing
AAAOx3
Abdomen: Moderate distention, tenderness to palpation in the epigastrium and right upper quadrant with voluntary guarding.
Incision site healing well. Drain still has heavy output and fluid is serosanguineous.
Patient has a wylie catheter: No
Patient has a central line: No
--- NOTE | 2025-03-02 09:20 | W.PN.HOSP.TC ---
Today's Communication/Plan
-
see bold
Assessment / Plan
Assessment / Plan
59y M with PMH significant for hypertension, DM-II and chronic pain / disability who presents to ED complaining of abdominal pain and weakness.
Acute gangrenous cholecystitis with localized peritonitis and perihepatic abscesses
Sepsis secondary to the above
- Patient presents with fever, tachycardia, tachypnea, leukocytosis and CT scan showing cholecystitis.
- Appreciate general surgery input, status post laparoscopic cholecystectomy with drain placement 03/01
- Continue drain care, clear liquid diet, pain meds, IV Zosyn, follow-up on operative cultures
- Drain will need to be maintained for 5-10 days postop, not necessarily will be removed at time of discharge
- Patient will require 2 weeks of antibiotics postoperatively, can transition to Augmentin pending culture results
- Trend fever and white count
Hyponatremia
- Monitor
Benign Hypertension
- Increase amlodipine to 10 mg daily
DM-II with hyperglycemia
- Uncontrolled. Follow glucose and cover with SSI as needed.
- Update A1C.
- Patient with hyperglycemia on clear liquid diet, increase insulin
COPD without Acute Exacerbation
- Stable at present. Albuterol PRN.
- Encourage smoking cessation.
Anxiety / Depression
Chronic Pain Syndrome
Chronic Gait Dysfunction
- Off of all meds except for PRN Ativan which we will continue.
- Consider restarting buprenorphine for pain control prior to discharge if needed.
- PT eval once clinically improved.
L Adrenal Incidentaloma
- Seen on CT.
- Further follow-up / evaluation as an outpatient after acute issues resolved
Obesity due to excess calories
- Affects all aspects of care
Cigarette nicotine dependency
- Cessation counseling has been provided, nicotine patch daily ordered
DVT Prophylaxis: Subcu Lovenox
Code Status: DNR
Total time spent to see the patient on the floor, examine the patient, review data and lab results, discuss treatment plan with patient, nursing staff around 51 minutes.
Physical Exam
General: Obese, appears to not feel well but in no acute distress
HEENT: Normocephalic, Atraumatic, EOMI, MMM
Respiratory: Clear to Auscultation bilaterally
Cardiac: Normal S1/S2, Regular Rate and Rhythm
GI: Soft, tenderness in the upper quadrants, distended, hypoactive bowel Sounds
Extremities: No Clubbing, Cyanosis, or Edema
Neuro: Nonfocal/Grossly Intact
Psych: Calm, Cooperative
Anticipated Discharge: > 48 hours
Subjective/Interval History
-
Date of Service: March 02, 2025
Patient reports severe abdominal pain. He is also short of breath. Denies nausea, denies no vomiting.
Objective Data
-
Labs:
Laboratory Results
03/01/25 03/02/25
22:18 07:33
WBC 13.6 H
Hgb 14.6
Hct 40.4
Plt Count 177
Sodium 135
Potassium 4.1
Chloride 108 H
Carbon Dioxide 21 L
BUN 18
Creatinine 0.6 L
Glucose 448 H 281 H
Calcium 8.4
Total Bilirubin 1.3
AST 26
ALT 42
Alkaline Phosphatase 60
Vital Signs:
Vital Signs
Temp Pulse Resp BP Pulse Ox
98.2 F 89 18 151/88 96
03/02/25 07:55 03/02/25 07:55 03/02/25 07:55 03/02/25 08:18 03/02/25 07:55
I&O
03/01/25 03/02/25 03/03/25
06:59 06:59 06:59
Intake Total 120 / 120 2190 / 2190 480 / 480
Output Total 350 / 350 1125 / 1125
Balance -230 / -230 1065 / 1065 480 / 480
[2025-03-02] MEDS: DILAUDID 1.5 MG IV ×4 (10:35→20:33)
[2025-03-02] MEDS: MYLICON 80 MG PO ×2 (10:37→12:41)
[2025-03-02] MEDS: DUONEB 3 ML INH ×3 (11:19→17:44)
--- NOTE | 2025-03-02 11:21 | CM ---
Addendum entered by Royal Hernandez 03/02/25 11:25:
Per record, pt is upgraded to in[patient level. IMM reviewed, placed on chart, pt has a copy.
Original Note:
CM following re: discharge planning.
Reviewed pt's chart, met with pt.
Pt is POD#1 s/p laparoscopic cholecystectomy w/ IOC and drainage of perihepatic abscess. Continue supportive care. Per Surgery, pt will stay inpatient for a few days for recovery.
PT and OT will evaluate pt to determine a level of care at discharge.
Pt lives alone 2SH and has 24/7 caregiver services provided by [facility]. Pt reports he ambulates with a walker and a cane, known to Karen EUCEDA. Pt stated he feels he might return back home with just caregiver services and at the same
time pt stated he has difficulties with moving around.
D/c plan: home with resumptions of 24/7 caregiver services. Awaiting for PT/OT recommendations.
CM will follow with discharge plan updates as hospitalization progresses
[2025-03-02 11:44] LABS: Glucose - Point of Care 401 mg/dl (70-99)
[2025-03-02 12:25] LABS: Glucose 435 mg/dl (70-99)
[2025-03-02] MEDS: NOVOLOG FLEXPEN-LOW RESISTANCE 6 UNITS SC (12:42)
[2025-03-02] MEDS: LANTUS 0.1 UNITS SC (15:57)
[2025-03-02] MEDS: NICODERM TRANSDERMAL TRANSDERM (15:58)
--- NOTE | 2025-03-02 15:58 | PTCARENOTE ---
Bennett Ríos called for patients aggressive behavior towards nurse, slamming his walker and yelling profanities and offensive names at his nurse over his concerns for pain medication. Spoke to patient with security intelligence analyst and advised patient that
he may not demonstrate any aggressive behavior towards hospital staff whether by physical or verbal actions even when in pain or in distress. Patient was apologetic and admitted he should not have done that. Reassured patient that nurse was in
communication with physican to sort out his medication for pain but that she was administering what was ordered.
[2025-03-02 16:54] LABS: Glucose - Point of Care 413 mg/dl (70-99)
[2025-03-02] MEDS: ROXICODONE 15 MG PO (17:57)
[2025-03-02] MEDS: LOVENOX 40 MG SC (17:59)
[2025-03-02 18:34] LABS: Glucose 384 mg/dl (70-99)
[2025-03-02] MEDS: NOVOLOG FLEXPEN 5 UNITS SC (18:43)
[2025-03-02] MEDS: NOVOLOG FLEXPEN-MODERATE RESISTANCE 9 UNITS SC (18:43)
[2025-03-02 22:22] LABS: Glucose - Point of Care 269 mg/dl (70-99)
[2025-03-03] MEDS: MYLICON 80 MG PO (00:20)
[2025-03-03] MEDS: TORADOL 10 MG IV (00:20)
[2025-03-03] MEDS: ROXICODONE 15 MG PO ×4 (00:49→17:25)
[2025-03-03 04:52] LABS: Hematocrit 37.5 % (39.0-52.0); Hemoglobin 13.4 g/dL (13.0-18.0); Mean Corp Hgb Conc. 35.7 g/dL (33.0-37.0); Mean Corpuscular Volume 84.3 fL (80.0-94.0); Platelet Count 205 10^3/uL (130-400); Red Cell Dist. Width 13.4 % (11.5-14.5)
[2025-03-03 05:17] LABS: ALT (SGPT) 36 U/L (0-50); AST (SGOT) 22 U/L (17-59); Albumin 2.9 g/dl (3.5-5.0); Alkaline Phosphatase 60 U/L (38-126); Blood Urea Nitrogen 15 mg/dl (9-20); Calcium 7.9 mg/dl (8.4-10.2); Carbon Dioxide 25 mmol/L (22-30); Chloride 104 mmol/L (98-107); Estimated Creatinine Clearance > 125 ml/min; Glucose 246 mg/dl (70-99); Potassium 4.0 mmol/L (3.5-5.1); Sodium 135 mmol/L (135-145); Total Protein 5.4 g/dl (6.3-8.2); eGFR > 60.00
[2025-03-03] MEDS: ZOSYN 50 IV ×4 (05:29→23:55)
[2025-03-03] MEDS: DUONEB 3 ML INH ×4 (06:07→18:11)
[2025-03-03] MEDS: SYMBICORT 80/4.5 MCG INHALER 2 PUFF INH ×2 (06:09→18:11)
[2025-03-03] MEDS: SPIRIVA RESPIMAT 2.5 MCG 2 PUFF INH (06:10)
[2025-03-03 07:30] VITALS: BP 149/85
[2025-03-03 07:34] LABS: Glucose - Point of Care 237 mg/dl (70-99)
--- NOTE | 2025-03-03 08:20 | W.PN.HOSP.TC ---
Today's Communication/Plan
-
see bold
Assessment / Plan
Assessment / Plan
59y M with PMH significant for hypertension, DM-II and chronic pain / disability who presents to ED complaining of abdominal pain and weakness.
Acute gangrenous cholecystitis with localized peritonitis and perihepatic abscesses
Sepsis secondary to the above
- Patient presents with fever, tachycardia, tachypnea, leukocytosis and CT scan showing cholecystitis.
- Appreciate general surgery input, status post laparoscopic cholecystectomy with drain placement 03/01
- Continue drain care, clear liquid diet, pain meds, IV Zosyn, follow-up on operative cultures
- Drain will need to be maintained for 5-10 days postop, not necessarily will be removed at time of discharge
- Patient will require 2 weeks of antibiotics postoperatively, can transition to Augmentin pending culture results
- Trend fever and white count
Hyponatremia
- Monitor
Benign Hypertension
- Increased amlodipine to 10 mg daily
DM-II with hyperglycemia
- Uncontrolled. Follow glucose and cover with SSI as needed.
- Patient with hyperglycemia on clear liquid diet, increased insulin
COPD without Acute Exacerbation
- Stable at present. Duonebs 4 times daily, albuterol as needed
- Encourage smoking cessation.
Anxiety / Depression
Chronic Pain Syndrome
Chronic Gait Dysfunction
- Off of all meds except for PRN Ativan which we will continue.
- Consider restarting buprenorphine for pain control prior to discharge if needed.
- PT eval once clinically improved.
L Adrenal Incidentaloma
- Seen on CT.
- Further follow-up / evaluation as an outpatient after acute issues resolved
Obesity due to excess calories
- Affects all aspects of care
Cigarette nicotine dependency
- Cessation counseling has been provided, nicotine patch daily ordered
DVT Prophylaxis: Subcu Lovenox
Code Status: DNR
Total time spent to see the patient on the floor, examine the patient, review data and lab results, discuss treatment plan with patient, nursing staff around 41 minutes.
Physical Exam
General: Obese, appears to not feel well but in no acute distress
HEENT: Normocephalic, Atraumatic, EOMI, MMM
Respiratory: Clear to Auscultation bilaterally
Cardiac: Normal S1/S2, Regular Rate and Rhythm
GI: Soft, tenderness in the upper quadrants, +drain, distended, hypoactive bowel Sounds
Extremities: No Clubbing, Cyanosis, or Edema
Neuro: Nonfocal/Grossly Intact
Psych: Calm, Cooperative
Anticipated Discharge: > 48 hours
Subjective/Interval History
-
Date of Service: March 03, 2025
Patient reports continued abdominal pain, controlled with both IV and oral medications if he gets both. Denies nausea, denies vomiting. He is passing gas, no stool. No fever.
Objective Data
-
Labs:
Laboratory Results
03/03/25
04:12
WBC 10.8
Hgb 13.4
Hct 37.5 L
Plt Count 205
Sodium 135
Potassium 4.0
Chloride 104
Carbon Dioxide 25
BUN 15
Creatinine 0.7
Glucose 246 H
Calcium 7.9 L
Total Bilirubin 1.2
AST 22
ALT 36
Alkaline Phosphatase 60
Vital Signs:
Vital Signs
Temp Pulse Resp BP Pulse Ox
99.5 F 93 18 145/71 96
03/02/25 23:06 03/03/25 06:10 03/03/25 06:10 03/02/25 23:06 03/03/25 06:10
I&O
03/02/25 03/03/25 03/04/25
06:59 06:59 06:59
Intake Total 2190 / 2190 3045 / 3045
Output Total 1125 / 1125 2570 / 2570
Balance 1065 / 1065 475 / 475
[2025-03-03] MEDS: NOVOLOG FLEXPEN 5 UNITS SC (08:36)
[2025-03-03] MEDS: MIRALAX 17 GRAMS PO (08:37)
[2025-03-03] MEDS: NOVOLOG FLEXPEN-MODERATE RESISTANCE 3 UNITS SC (08:37)
[2025-03-03] MEDS: NICODERM TRANSDERMAL 21 MG TRANSDERM (08:37)
[2025-03-03] MEDS: PROTONIX IV 40 MG IV (08:38)
[2025-03-03] MEDS: DILAUDID 1.5 MG IV ×5 (08:38→20:00)
[2025-03-03] MEDS: NSS (PRESERVATIVE FREE) 10 ML IV (08:38)
[2025-03-03] MEDS: NORVASC 10 MG PO (08:38)
[2025-03-03 11:00] VITALS: BP 140/88
[2025-03-03 11:32] LABS: Glucose - Point of Care 257 mg/dl (70-99)
[2025-03-03] MEDS: NOVOLOG FLEXPEN 6 UNITS SC ×2 (12:34→16:56)
[2025-03-03] MEDS: NOVOLOG FLEXPEN-MODERATE RESISTANCE 5 UNITS SC ×2 (12:34→16:56)
[2025-03-03] MEDS: LANTUS 0.14 UNITS SC (12:35)
--- NOTE | 2025-03-03 13:53 | W.PN.GS2 ---
Addendum entered and electronically signed by Jose M Azul MD 03/04/25 12:57:
I saw and examined the patient.
The Document Processing Specialist's note was reviewed and I agree with the note.
Original Note:
Today's Communication / Plan
-
Pain management
Full liquids
Assessment / Plan
-
59 y/o M who presented with acute cholecystitis now POD #2 s/p laparoscopic cholecystectomy w/ IOC with drainage of perihepatic abscess. Gangrenous cholecystitis noted intraoperatively
AFVSS, now off O2
Pain control has been an issue, challenging situation given his h/o chronic pain syndrome with suboxone use at baseline
Code purple yesterday for agitation, improved today
Leukocytosis resolved
OR cx preliminary with enterococcus and primarily ecoli
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
Nausea improved, tolerating clears
Plan:
Trial on FLD (ADA)
Analgesics scheduled and prn
Diabetic management as per primary team
OOB/Ambulate
C/W GIAN drain for 5-10 days, anticipate will remain in place upon discharge
C/W IV ABX, anticipate. 2-week course of postoperative antibiotics with probable transition to Augmentin on d/c pending culture results given perihepatic infection and abscess pockets along the liver capsule and potentially even a bit intrahepatic
Subjective Data
-
Date of Service: March 03, 2025
Pt seen and examined at bedside with Dr. Azul. Nausea much better although some occasionally. Pain control has been an issue, reports primarily to his right abdomen.
Objective Data
-
Intake and Output
03/02/25 03/03/25 03/04/25
06:59 06:59 06:59
Intake Total 2190 / 2190 3045 / 3045 530 / 530
Output Total 1125 / 1125 2570 / 2570
Balance 1065 / 1065 475 / 475 530 / 530
Intake:
Oral fluids 1265 / 1265 1720 / 1720 480 / 480
IV fluids (Total) 875 / 875 1125 / 1125
IV piggybacks 50 / 50 200 / 200 50 / 50
Output:
Drain Output (Total) 50 / 50 60 / 60
Right Lower Abdomen 50 / 50 60 / 60
Urine, Voided 1075 / 1075 2510 / 2510
Other:
Number of approximated MODERATE 1
amounts of urine
Number of approximated LARGE 2
amounts of urine
Vital Signs
Temp Pulse Resp BP Pulse Ox
98.6 F 97 16 140/88 95
03/03/25 11:00 03/03/25 11:20 03/03/25 11:20 03/03/25 11:00 03/03/25 11:20
Lab Results
03/03/25 04:12
03/03/25 04:12
Calcium 7.9 mg/dl (8.4-10.2) L 03/03/25 04:12
Magnesium 2.2 mg/dl (1.6-2.3) 03/02/25 07:33
Total Bilirubin 1.2 mg/dl (0.2-1.3) 03/03/25 04:12
Direct Bilirubin 0.3 mg/dl (0.0-0.4) 03/01/25 06:00
AST 22 U/L (17-59) 03/03/25 04:12
ALT 36 U/L (0-50) 03/03/25 04:12
Alkaline Phosphatase 60 U/L (38-126) 03/03/25 04:12
Total Protein 5.4 g/dl (6.3-8.2) L 03/03/25 04:12
Albumin 2.9 g/dl (3.5-5.0) L 03/03/25 04:12
Physical Exam
-
Bent over at side of bed
Ox3, calm
ABD softly distended, tender to right side
Incision site healing well. Drain output serosanguineous.
Patient has a wylie catheter: No
Patient has a central line: No
[2025-03-03] MEDS: TORADOL 30 MG IV ×2 (14:49→21:04)
[2025-03-03 15:20] VITALS: BP 130/77
[2025-03-03 16:17] LABS: Glucose - Point of Care 252 mg/dl (70-99)
[2025-03-03] MEDS: LOVENOX 40 MG SC (17:44)
[2025-03-03] MEDS: TYLENOL 1000 MG PO ×2 (17:44→23:55)
[2025-03-03 19:10] VITALS: BP 142/72
[2025-03-03 21:46] LABS: Glucose - Point of Care 207 mg/dl (70-99)
[2025-03-03] MEDS: ATIVAN 1 MG PO (22:27)
[2025-03-03 23:10] VITALS: BP 130/73
[2025-03-04] MEDS: ZOFRAN 4 MG IV (00:33)
[2025-03-04 03:05] VITALS: BP 147/69
[2025-03-04] MEDS: TORADOL 30 MG IV ×4 (03:25→21:16)
[2025-03-04] MEDS: DILAUDID 1.5 MG IV ×6 (03:32→23:46)
[2025-03-04] MEDS: TYLENOL 1000 MG PO ×4 (05:28→23:27)
[2025-03-04] MEDS: ZOSYN 50 IV ×4 (05:28→23:27)
[2025-03-04 06:25] LABS: Hematocrit 39.8 % (39.0-52.0); Hemoglobin 14.3 g/dL (13.0-18.0); Mean Corp Hgb Conc. 35.9 g/dL (33.0-37.0); Mean Corpuscular Volume 84.7 fL (80.0-94.0); Platelet Count 234 10^3/uL (130-400); Red Cell Dist. Width 13.5 % (11.5-14.5)
[2025-03-04 06:54] LABS: Blood Urea Nitrogen 14 mg/dl (9-20); Calcium 8.5 mg/dl (8.4-10.2); Carbon Dioxide 22 mmol/L (22-30); Chloride 103 mmol/L (98-107); Estimated Creatinine Clearance > 125 ml/min; Glucose 253 mg/dl (70-99); Potassium 4.4 mmol/L (3.5-5.1); Sodium 135 mmol/L (135-145); eGFR > 60.00
[2025-03-04] MEDS: VENTOLIN NEBULES 2.5 MG INH ×4 (07:33→20:21)
[2025-03-04] MEDS: SPIRIVA RESPIMAT 2.5 MCG 2 PUFF INH (07:33)
[2025-03-04] MEDS: SYMBICORT 80/4.5 MCG INHALER 2 PUFF INH ×2 (07:34→20:20)
[2025-03-04] MEDS: DUONEB INH (07:35)
[2025-03-04 07:58] LABS: Glucose - Point of Care 230 mg/dl (70-99)
[2025-03-04 08:03] VITALS: BP 131/74
[2025-03-04] MEDS: VENTOLIN NEBULES INH (08:20)
[2025-03-04] MEDS: ROXICODONE 15 MG PO ×2 (08:23→22:08)
[2025-03-04] MEDS: NOVOLOG FLEXPEN-MODERATE RESISTANCE 3 UNITS SC ×3 (08:28→17:59)
[2025-03-04] MEDS: NOVOLOG FLEXPEN 6 UNITS SC (08:29)
[2025-03-04] MEDS: NICODERM TRANSDERMAL 21 MG TRANSDERM (08:32)
[2025-03-04] MEDS: MIRALAX 17 GRAMS PO (08:32)
[2025-03-04] MEDS: NORVASC 10 MG PO (08:33)
[2025-03-04] MEDS: PROTONIX IV 40 MG IV (08:34)
[2025-03-04] MEDS: NSS (PRESERVATIVE FREE) 10 ML IV (08:34)
--- NOTE | 2025-03-04 09:06 | W.PN.HOSP.TC ---
Today's Communication/Plan
-
see bold
Assessment / Plan
Assessment / Plan
59y M with PMH significant for hypertension, DM-II and chronic pain / disability who presents to ED complaining of abdominal pain and weakness.
Acute gangrenous cholecystitis with localized peritonitis and perihepatic abscesses
Sepsis secondary to the above
- Patient presents with fever, tachycardia, tachypnea, leukocytosis and CT scan showing cholecystitis.
- Appreciate general surgery input, status post laparoscopic cholecystectomy with drain placement 03/01
- Continue drain care, adv to carb controlled diet. Pain meds increased by general surgery due to his tolerance from history of Suboxone use
- Intraoperative cultures growing pansensitive E. coli and Enterococcus, will change IV Zosyn to Augmentin D3/
- Drain will need to be maintained for 5-10 days postop, not necessarily will be removed at time of discharge
- Trend fever and white count
Hyponatremia
- Monitor
Benign Hypertension
- BP improved w/ increased amlodipine to 10 mg daily
DM-II with hyperglycemia
- Hemoglobin A1c 8.3
- Lantus and NovoLog increased, continue SSI
COPD without Acute Exacerbation
- Stable at present. Duonebs 4 times daily, albuterol as needed
- Encourage smoking cessation.
Anxiety / Depression
Chronic Pain Syndrome
Chronic Gait Dysfunction
- Off of all meds except for PRN Ativan which we will continue.
- Consider restarting buprenorphine for pain control prior to discharge if needed.
- PT recommends home PT
L Adrenal Incidentaloma
- Seen on CT.
- Further follow-up / evaluation as an outpatient after acute issues resolved
Obesity due to excess calories
- Affects all aspects of care
Cigarette nicotine dependency
- Cessation counseling has been provided, nicotine patch daily ordered
DVT Prophylaxis: Subcu Lovenox
Code Status: DNR
Total time spent to see the patient on the floor, examine the patient, review data and lab results, discuss treatment plan with patient, nursing staff around 40 minutes.
Physical Exam
General: Obese, appears to not feel well but in no acute distress
HEENT: Normocephalic, Atraumatic, EOMI, MMM
Respiratory: Clear to Auscultation bilaterally
Cardiac: Normal S1/S2, Regular Rate and Rhythm
GI: Soft, tenderness in the upper quadrants, +drain, distended, hypoactive bowel Sounds
Extremities: No Clubbing, Cyanosis, or Edema
Neuro: Nonfocal/Grossly Intact
Psych: Calm, Cooperative
Anticipated Discharge: 24 - 48 hours
Subjective/Interval History
-
Date of Service: March 03, 2025
Patient complains of abdominal pain. Denies nausea, denies vomiting. He is passing gas, has not had a stool. No fever.
Objective Data
-
Labs:
Laboratory Results
03/03/25
04:12
WBC 10.8
Hgb 13.4
Hct 37.5 L
Plt Count 205
Sodium 135
Potassium 4.0
Chloride 104
Carbon Dioxide 25
BUN 15
Creatinine 0.7
Glucose 246 H
Calcium 7.9 L
Total Bilirubin 1.2
AST 22
ALT 36
Alkaline Phosphatase 60
Vital Signs:
Vital Signs
Temp Pulse Resp BP Pulse Ox
98.6 F 97 16 140/88 95
03/03/25 11:00 03/03/25 11:20 03/03/25 11:20 03/03/25 11:00 03/03/25 11:20
I&O
03/02/25 03/03/25 03/04/25
06:59 06:59 06:59
Intake Total 2190 / 2190 3045 / 3045 530 / 530
Output Total 1125 / 1125 2570 / 2570
Balance 1065 / 1065 475 / 475 530 / 530
[2025-03-04 11:20] VITALS: BP 135/85
[2025-03-04 11:28] LABS: Glucose - Point of Care 235 mg/dl (70-99)
--- NOTE | 2025-03-04 11:42 | W.PN.GS2 ---
Addendum entered and electronically signed by Jose M Azul MD 03/04/25 12:54:
I saw and examined the patient.
The Metal Sponge Making Machine Operator's note was reviewed and I agree with the note.
Comment: C/o poor pain control. Ambulating, voiding, fanny PO. Abd exam distended, drain ss, mod ttp, incisions cdi. Plan to increase pain regimen. Discussed that given his hx, pain control will continue to be a challenge for him.
Original Note:
Today's Communication / Plan
-
Pain management
Advance diet
Assessment / Plan
-
59 y/o M who presented with acute cholecystitis now POD #3 s/p laparoscopic cholecystectomy w/ IOC with drainage of perihepatic abscess. Gangrenous cholecystitis noted intraoperatively with perihepatic infection and abscess pockets along the liver
capsule and potentially even a bit intrahepatic
AFVSS
Pain control has been an issue, challenging situation given his h/o chronic pain syndrome with prior suboxone/methadone use as an outpatient
Code purple yesterday for agitation, improved today
Leukocytosis resolved
OR cx preliminary with enterococcus and ecoli (both pansensitive)
Uncontrolled DM, A1c pending
Plan:
Advance to diabetic diet
Analgesics scheduled and prn
Diabetic management as per primary team
OOB/Ambulate
C/W GIAN drain for 5-10 days, anticipate will remain in place upon discharge
C/W IV ABX (on cx sensitive agent), anticipate. 2-week course of postoperative antibiotics with transition to Augmentin on d/c
Subjective Data
-
Date of Service: March 04, 2025
Pt seen and examined at bedside today with Dr. Azul. Moving around a little better than before but still notes pain not well controlled. An episode of nausea, but overall kim nausea. Reports he is beginning to feel hungry again and would like to
try solid foods.
Objective Data
-
Intake and Output
03/03/25 03/04/25 03/05/25
06:59 06:59 06:59
Intake Total 3045 / 3045 1480 / 1480
Output Total 2570 / 2570 840 / 840
Balance 475 / 475 640 / 640
Intake:
Oral fluids 1720 / 1720 1380 / 1380
IV fluids (Total) 1125 / 1125
IV piggybacks 200 / 200 100 / 100
Output:
Drain Output (Total) 60 / 60 40 / 40
Right Lower Abdomen 60 / 60 40 / 40
Urine, Voided 2510 / 2510 800 / 800
Other:
Number of approximated MODERATE 3
amounts of urine
Number of approximated LARGE 2
amounts of urine
Vital Signs
Temp Pulse Resp BP Pulse Ox
98.4 F 86 16 131/74 96
03/04/25 08:03 03/04/25 11:13 03/04/25 11:13 03/04/25 08:03 03/04/25 11:13
Lab Results
03/04/25 04:20
03/04/25 04:20
Calcium 8.5 mg/dl (8.4-10.2) 03/04/25 04:20
Magnesium 2.2 mg/dl (1.6-2.3) 03/02/25 07:33
Total Bilirubin 1.2 mg/dl (0.2-1.3) 03/03/25 04:12
Direct Bilirubin 0.3 mg/dl (0.0-0.4) 03/01/25 06:00
AST 22 U/L (17-59) 03/03/25 04:12
ALT 36 U/L (0-50) 03/03/25 04:12
Alkaline Phosphatase 60 U/L (38-126) 03/03/25 04:12
Total Protein 5.4 g/dl (6.3-8.2) L 03/03/25 04:12
Albumin 2.9 g/dl (3.5-5.0) L 03/03/25 04:12
Physical Exam
-
Bent over at side of bed
Ox3, calm
ABD ND, soft, tender to right side
Incision site healing well. Drain output serosanguineous.
Patient has a wylie catheter: No
Patient has a central line: No
[2025-03-04] MEDS: NOVOLOG FLEXPEN 7 UNITS SC ×2 (12:03→17:59)
[2025-03-04] MEDS: LANTUS 0.18 UNITS SC (12:03)
[2025-03-04] MEDS: ROXICODONE 20 MG PO (12:57)
[2025-03-04 15:40] VITALS: BP 145/87
[2025-03-04 16:36] LABS: Glucose - Point of Care 236 mg/dl (70-99)
[2025-03-04] MEDS: LOVENOX 40 MG SC (17:54)
[2025-03-04 19:26] VITALS: BP 145/90
[2025-03-04 21:41] LABS: Glucose - Point of Care 317 mg/dl (70-99)
[2025-03-04] MEDS: NOVOLOG FLEXPEN 5 UNITS SC (22:03)
[2025-03-04 23:41] VITALS: BP 139/65
[2025-03-04 23:57] LABS: Glucose - Point of Care 231 mg/dl (70-99)
[2025-03-05] MEDS: TORADOL 30 MG IV ×2 (03:13→08:31)
[2025-03-05 04:48] VITALS: BMI 31.3
[2025-03-05] MEDS: ZOSYN 50 IV ×4 (05:13→23:22)
[2025-03-05] MEDS: TYLENOL PO ×2 (05:13→05:18)
[2025-03-05] MEDS: SPIRIVA RESPIMAT 2.5 MCG 2 PUFF INH (07:26)
[2025-03-05] MEDS: SYMBICORT 80/4.5 MCG INHALER 2 PUFF INH ×2 (07:27→20:04)
[2025-03-05] MEDS: VENTOLIN NEBULES 2.5 MG INH ×4 (07:27→20:04)
[2025-03-05 07:29] LABS: Glucose - Point of Care 240 mg/dl (70-99)
[2025-03-05 07:35] VITALS: BP 159/86
[2025-03-05 08:13] LABS: Hematocrit 44.3 % (39.0-52.0); Hemoglobin 15.5 g/dL (13.0-18.0); Mean Corp Hgb Conc. 35.0 g/dL (33.0-37.0); Mean Corpuscular Volume 85.5 fL (80.0-94.0); Platelet Count 284 10^3/uL (130-400); Red Cell Dist. Width 14.0 % (11.5-14.5)
[2025-03-05] MEDS: NORVASC 10 MG PO (08:28)
[2025-03-05] MEDS: DILAUDID 1.5 MG IV ×5 (08:28→23:36)
[2025-03-05] MEDS: PROTONIX IV 40 MG IV (08:28)
[2025-03-05] MEDS: NSS (PRESERVATIVE FREE) 10 ML IV (08:28)
[2025-03-05] MEDS: NOVOLOG FLEXPEN-MODERATE RESISTANCE 3 UNITS SC (08:29)
[2025-03-05] MEDS: MIRALAX 17 GRAMS PO (08:29)
[2025-03-05] MEDS: NICODERM TRANSDERMAL 21 MG TRANSDERM (08:29)
[2025-03-05] MEDS: NOVOLOG FLEXPEN SC ×3 (08:30→17:31)
[2025-03-05 08:44] LABS: Blood Urea Nitrogen 13 mg/dl (9-20); Calcium 9.1 mg/dl (8.4-10.2); Carbon Dioxide 26 mmol/L (22-30); Chloride 103 mmol/L (98-107); Estimated Creatinine Clearance > 125 ml/min; Glucose 276 mg/dl (70-99); Magnesium 2.0 mg/dl (1.6-2.3); Potassium 4.9 mmol/L (3.5-5.1); Sodium 135 mmol/L (135-145); eGFR > 60.00
--- NOTE | 2025-03-05 08:48 | W.PN.HOSP.TC ---
Today's Communication/Plan
-
trial of Relistor
once pt eating, would like to resume outpt diabetic regimen, call placed to nursing to correct outpt insulin medication
CXR
encourage use of IS, mininebs
narcotic analgesics as per Surgery
Assessment / Plan
Assessment / Plan
59y M with PMH significant for hypertension, DM-II and chronic pain / disability who presents to ED complaining of abdominal pain and weakness.
Acute gangrenous cholecystitis with localized peritonitis and perihepatic abscesses
Sepsis secondary to the above
- Patient presents with fever, tachycardia, tachypnea, leukocytosis and CT scan showing cholecystitis.
- Appreciate general surgery input, status post laparoscopic cholecystectomy with drain placement 03/01
- Continue drain care, adv to carb controlled diet. Pain meds increased by general surgery due to his tolerance from history of Suboxone use
as per patient, he stopped Suboxone 3 days prior to admission, contacted pharm, Naloxone t1/2 is 2-12 hrs, thusly should be out of system
- Intraoperative cultures growing pansensitive E. coli and Enterococcus, will change IV Zosyn to Augmentin at time of dc
- Drain will need to be maintained for 5-10 days postop, not necessarily will be removed at time of discharge
- Trend fever and white count
WBC 03/02 13.6-->03/03 10.8-->03/04 7.5-->03/05 8.6
remains very constipated, discussed with Gen Surg, will add 1 dose of Relistor, hopefully resolving constipation will help with pain management
Hyponatremia
- resolved, 135
Benign Hypertension
- BP improved w/ increased amlodipine to 10 mg daily
BP 130-159/73-86
DM-II with hyperglycemia
- Hemoglobin A1c 8.3
- Lantus and NovoLog increased, continue SSI
glu [phone]
COPD without Acute Exacerbation
- Stable at present. Duonebs 4 times daily, albuterol as needed
- Encourage smoking cessation. Left lung very congested, ?atelectasis, will check Chest X-Ray. Encourage use of IS
Anxiety / Depression
Chronic Pain Syndrome
Chronic Gait Dysfunction
- Off of all meds except for PRN Ativan which we will continue.
- Consider restarting buprenorphine for pain control prior to discharge if needed.
- PT recommends home PT
L Adrenal Incidentaloma
- Seen on CT.
- Further follow-up / evaluation as an outpatient after acute issues resolved
Obesity due to excess calories
- Affects all aspects of care
Cigarette nicotine dependency
- Cessation counseling has been provided, nicotine patch daily ordered
DVT Prophylaxis: Subcu Lovenox
Code Status: DNR
Total time spent to see the patient on the floor, examine the patient, review data and lab results, discuss treatment plan with patient, nursing staff around [address] Manuel
Anticipated Discharge: 24 - 48 hours
Subjective/Interval History
-
Date of Service: March 05, 2025
Still with abdominal pain, small BM and minimal flatus
Objective Data
-
Labs:
Laboratory Results
03/05/25
07:18
WBC 8.6
Hgb 15.5
Hct 44.3
Plt Count 284 D
Sodium 135
Potassium 4.9
Chloride 103
Carbon Dioxide 26
BUN 13
Creatinine 0.6 L
Glucose 276 H
Calcium 9.1
Vital Signs:
Vital Signs
Temp Pulse Resp BP Pulse Ox
98.5 F 101 18 159/86 98
03/05/25 07:35 03/05/25 07:35 03/05/25 07:35 03/05/25 07:35 03/05/25 07:35
I&O
03/04/25 03/05/25 03/06/25
06:59 06:59 06:59
Intake Total 1480 / 1480 1640 / 1640
Output Total 840 / 840 585 / 585 200 / 200
Balance 640 / 640 1055 / 1055 -200 / -200
Review of Systems
-
History Source: Patient and Physician
Constitutional: Denies Fever
EENT: Reports No Symptoms Reported
Respiratory: Reports Cough (on deep inspiration)
Cardiac: Reports No Symptoms
Abdomen/GI: Reports Abdominal Pain (still intense and does not feel that the narcotic analgesic is fully controlling)
Physical Exam
-
General: Well Developed, Well Nourished and No Apparent Distress
HEENT: Normocephalic, Atraumatic and Moist Mucous Membranes
Respiratory: Rales (fine rales rt base) and Rhonchi (wet rhonchi left base, does not clear with deep inspiration, )
Cardiac: Regular Rhythm and S1/S2
GI: Soft, Tender (most tender RUQ), Distended and Other (drain); Negative Normal Bowel Sounds (hypoactive BS)
Musculoskeletal: No Clubbing, No Cyanosis and No Edema
Skin: Warm and Dry
Neuro: Awake and Alert
--- NOTE | 2025-03-05 10:02 | W.PN.GS2 ---
Addendum entered and electronically signed by Thai Manuel MD 03/05/25 15:20:
I saw and examined the patient independently.
The resident's documentation was reviewed and I agree with the note, assessment and plan except where noted below.
Comment: This is a 59-year-old male postoperative day 4 from a laparoscopic cholecystectomy with drainage of a hepatic abscess. Doing well, expected postoperative course.
Continue diet.
Diabetic management per primary.
Continue antibiotics, will plan for a 2-week course.
Continue drain to bulb suction, anticipate keeping it in for at least 10 days.
Original Note:
Today's Communication / Plan
-
Patient drain output is still a little bit murky so he will have to keep it in for 7 to 10 days.
Patient seems uncomfortable and was given pain medication.
Patient will have to be sent home on antibiotics for 2 weeks
Patient will be sent home with at home pain meds put no D&C today
Assessment / Plan
-
59 y/o M who presented with acute cholecystitis now POD #4 s/p laparoscopic cholecystectomy w/ IOC with drainage of perihepatic abscess. Gangrenous cholecystitis noted intraoperatively with perihepatic infection and abscess pockets along the liver
capsule and potentially even a bit intrahepatic
AFVSS
Pain control has been an issue, challenging situation given his h/o chronic pain syndrome with prior suboxone/methadone use as an outpatient
Agitation has improved
Leukocytosis elevated
OR cx preliminary with enterococcus and ecoli (both pansensitive)
Uncontrolled DM
Plan:
Continue diet
IV analgesics still needed (no DC today)
Diabetic management as per primary team
OOB/Ambulate
C/W GIAN drain for 5-10 days, anticipate will remain in place upon discharge
C/W IV ABX (on cx sensitive agent), anticipate. 2-week course of postoperative antibiotics with transition to Augmentin on d/c
Time Spent
Total Time Spent with Patient (in minutes): 40
Subjective Data
-
Date of Service: March 05, 2025
59-year-old male with past medical history of COPD asthma, GERD, hypertension, hyperlipidemia, type 2 diabetes mellitus, CKD, Lyme's who presented with significant LUQ abdominal pain gradually worsening over 3 days along with abdominal distention
and nausea and vomiting. Patient is postop day #4 s/p laparoscopic cholecystectomy with IOC with drainage of perihepatic abscess. Patient denies any nausea or vomiting. Patient states he still feeling a lot of pain and rates it 6 out of 10.
Patient states he had 1 bowel movement that was solid last night and a little bit of gas has been passed. Patient is OOB and ambulating and tolerating his p.o. diet. Patient admits to mild SOB.
Objective Data
-
Intake and Output
03/04/25 03/05/25 03/06/25
06:59 06:59 06:59
Intake Total 1480 / 1480 1640 / 1640
Output Total 840 / 840 585 / 585 200 / 200
Balance 640 / 640 1055 / 1055 -200 / -200
Intake:
Oral fluids 1380 / 1380 1440 / 1440
IV fluids (Total) 100 / 100
IV piggybacks 100 / 100 100 / 100
Output:
Drain Output (Total) 40 / 40 35 / 35
Right Lower Abdomen 40 / 40 35 / 35
Urine, Wylie 550 / 550
Urine, Voided 800 / 800 200 / 200
Other:
Number of approximated SMALL 2
amounts of urine
Number of approximated MODERATE 3 3
amounts of urine
Vital Signs
Temp Pulse Resp BP Pulse Ox
98.5 F 101 18 159/86 98
03/05/25 07:35 03/05/25 07:35 03/05/25 07:35 03/05/25 07:35 03/05/25 07:35
Lab Results
03/05/25 07:18
03/05/25 07:18
Calcium 9.1 mg/dl (8.4-10.2) 03/05/25 07:18
Phosphorus 3.5 mg/dl (2.5-4.5) 03/05/25 07:18
Magnesium 2.0 mg/dl (1.6-2.3) 03/05/25 07:18
Total Bilirubin 1.2 mg/dl (0.2-1.3) 03/03/25 04:12
Direct Bilirubin 0.3 mg/dl (0.0-0.4) 03/01/25 06:00
AST 22 U/L (17-59) 03/03/25 04:12
ALT 36 U/L (0-50) 03/03/25 04:12
Alkaline Phosphatase 60 U/L (38-126) 03/03/25 04:12
Total Protein 5.4 g/dl (6.3-8.2) L 03/03/25 04:12
Albumin 2.9 g/dl (3.5-5.0) L 03/03/25 04:12
AFVSS. Blood pressure is elevated at 159/86.
Lab: White blood cell counts increased from 7.5-8.6 which is still in normal range. Glucose is elevated at 276.
Cultures: E. coli, Enterococcus faecalis.
CT Abd/Pelvis: Mildly prominent hyperdensities along the gallbladder neck consistent with acute cholecystitis.
Physical Exam
-
General: Patient in mild distress due to pain.
AAAOx3
Chest: Labored breathing/mild wheezing
Abdomen: Mild tenderness to palpation on RUQ. Mild distention as well. Drain incision site is healing well. J-tube draining well with output of serosanguineous fluid.
Patient has a wylie catheter: No
Patient has a central line: No
--- NOTE | 2025-03-05 10:15 | CM ---
Chart reviewed and egg caser met with patient and patient was standing in doorway to room, per patient he is getting ready for discharge, egg caser spoke with patient regarding caregiver services and patient confirmed that he has services
from [facility] at home.
Plan; Home with companions/caregivers.
[2025-03-05] MEDS: ROXICODONE 15 MG PO (11:25)
[2025-03-05] MEDS: RELISTOR 8 MG SC (11:26)
[2025-03-05 11:56] LABS: Glucose - Point of Care 257 mg/dl (70-99)
[2025-03-05] MEDS: TYLENOL 1000 MG PO ×3 (12:28→23:22)
[2025-03-05] MEDS: NOVOLOG FLEXPEN-MODERATE RESISTANCE 5 UNITS SC ×2 (12:28→17:05)
[2025-03-05] MEDS: LANTUS 0.18 UNITS SC (12:30)
[2025-03-05] MEDS: NOVOLOG FLEXPEN 7 UNITS SC ×2 (12:30→18:37)
[2025-03-05 15:05] VITALS: BP 138/80
[2025-03-05 16:15] VITALS: BP 146/85; BP 169/100; O2SAT 97
[2025-03-05] MEDS: LOVENOX 40 MG SC (17:04)
[2025-03-05 17:05] LABS: Glucose - Point of Care 296 mg/dl (70-99)
[2025-03-05 21:23] LABS: Glucose - Point of Care 292 mg/dl (70-99)
[2025-03-05] MEDS: ATIVAN 1 MG PO (22:08)
[2025-03-05 23:10] VITALS: BP 152/85
--- NOTE | 2025-03-06 02:22 | DOWNTIME ---
There was a [employer] Downtime on 03/06/2025 from 0100 to 03/06/2025 at 0220. Downtime documentation of patient's care, including medication administrations, has been reconciled in the electronic record per guidelines. Refer to the
patient's paper chart under the miscellaneous tab to see printed paper medication records and downtime forms.
[2025-03-06] MEDS: ROXICODONE 15 MG PO (05:10)
[2025-03-06] MEDS: TYLENOL 1000 MG PO ×2 (05:10→12:23)
[2025-03-06] MEDS: ZOSYN 50 IV ×2 (05:10→12:24)
[2025-03-06 06:00] VITALS: BMI 30.3
[2025-03-06] MEDS: DILAUDID 1.5 MG IV (06:25)
[2025-03-06] MEDS: SPIRIVA RESPIMAT 2.5 MCG 2 PUFF INH (07:19)
[2025-03-06] MEDS: SYMBICORT 80/4.5 MCG INHALER 2 PUFF INH (07:19)
[2025-03-06] MEDS: VENTOLIN NEBULES 2.5 MG INH ×2 (07:19→11:14)
[2025-03-06 07:45] VITALS: BP 137/93
[2025-03-06 08:11] LABS: Glucose - Point of Care 325 mg/dl (70-99)
[2025-03-06] MEDS: NSS (PRESERVATIVE FREE) 10 ML IV (08:25)
[2025-03-06] MEDS: NICODERM TRANSDERMAL 21 MG TRANSDERM (08:25)
[2025-03-06] MEDS: NORVASC 10 MG PO (08:26)
[2025-03-06] MEDS: MIRALAX 17 GRAMS PO (08:26)
[2025-03-06] MEDS: PROTONIX IV 40 MG IV (08:26)
[2025-03-06] MEDS: NOVOLOG FLEXPEN 7 UNITS SC ×2 (08:40→12:19)
[2025-03-06] MEDS: NOVOLOG FLEXPEN-MODERATE RESISTANCE SC (08:40)
--- NOTE | 2025-03-06 09:39 | W.PN.GS2 ---
Today's Communication / Plan
-
Continue diet
Continue to ambulate
Prescribe the patient oral pain medication: Oxycodone 20 mg PO Q3Hr PRN (42 tabs total)
Send patient home on Abx for 2 weeks. Switch to Augmentin D/C.
Medicine team to manage elevated glucose.
Surgical team signing off
Medicine team to
D/C
Assessment / Plan
-
59 y/o M who presented with acute cholecystitis now POD #5 s/p laparoscopic cholecystectomy w/ IOC with drainage of perihepatic abscess. Gangrenous cholecystitis noted intraoperatively with perihepatic infection and abscess pockets along the liver
capsule and potentially even a bit intrahepatic
AFVSS
Pain control still an issue, challenging situation given his h/o chronic pain syndrome with prior suboxone/methadone use as an outpatient
Agitation has worsened
Leukocytosis resolved
OR cx preliminary with enterococcus and ecoli (both pansensitive)
Uncontrolled DM
Plan:
Continue p.o diet
Discontinue IV analgesic
Switch to oral analgesic (Oxycodone 20 mg PO Q3HPRN)
Diabetic management as per primary team
OOB/Ambulate
C/W GIAN drain for 5-10 days, anticipate will remain in place upon discharge
C/W IV ABX (on cx sensitive agent), anticipate. 2-week course of postoperative antibiotics with transition to Augmentin on d/c
Time Spent
Total Time Spent with Patient (in minutes): 35
Subjective Data
-
Date of Service: March 06, 2025
59-year-old male with past medical history of COPD asthma, GERD, hypertension, hyperlipidemia, type 2 diabetes mellitus, CKD, Lyme's who presented with significant LUQ abdominal pain gradually worsening over 3 days along with abdominal distention
and nausea and vomiting. Patient is postop day #5 s/p laparoscopic cholecystectomy with IOC with drainage of perihepatic abscess. Patient denies any nausea or vomiting. Patient states he still feeling a lot of pain and rates it 7 out of 10.
Patient states he had 1 bowel movement that was solid last night and a little bit of gas has been passed. Patient is OOB and ambulating and tolerating his p.o. diet. Patient states the his breathing has gotten better as well. Patient is very
anxious to be discharged and very adamant about receiving his next round of pain medication. At first he stated that he rejected 20 mg Oxycodone for the 15 mg dose thinking that his pain was sufficiently managed, but later on changed his mind and
requested an increase his pain medication.
Objective Data
-
Intake and Output
03/05/25 03/06/25 03/07/25
06:59 06:59 06:59
Intake Total 1640 / 1640 1160 / 1160
Output Total 585 / 585 1115 / 1115
Balance 1055 / 1055 45 / 45
Intake:
Oral fluids 1440 / 1440 960 / 960
IV fluids (Total) 100 / 100 100 / 100
IV piggybacks 100 / 100 100 / 100
Output:
Drain Output (Total)
Right Lower Abdomen
Urine, Wylie 550 / 550
Urine, Voided 1100 / 1100
Other:
Number of approximated SMALL 2 1
amounts of urine
Number of approximated MODERATE 3 2
amounts of urine
Vital Signs
Temp Pulse Resp BP Pulse Ox
98.4 F 87 18 137/93 94
03/06/25 07:45 03/06/25 08:26 03/06/25 07:45 03/06/25 08:26 03/06/25 07:45
Lab Results
03/05/25 07:18
03/05/25 07:18
Calcium 9.1 mg/dl (8.4-10.2) 03/05/25 07:18
Phosphorus 3.5 mg/dl (2.5-4.5) 03/05/25 07:18
Magnesium 2.0 mg/dl (1.6-2.3) 03/05/25 07:18
Total Bilirubin 1.2 mg/dl (0.2-1.3) 03/03/25 04:12
Direct Bilirubin 0.3 mg/dl (0.0-0.4) 03/01/25 06:00
AST 22 U/L (17-59) 03/03/25 04:12
ALT 36 U/L (0-50) 03/03/25 04:12
Alkaline Phosphatase 60 U/L (38-126) 03/03/25 04:12
Total Protein 5.4 g/dl (6.3-8.2) L 03/03/25 04:12
Albumin 2.9 g/dl (3.5-5.0) L 03/03/25 04:12
AFVSS
Labs: WNL except POC Glucose: 325 (H).
Physical Exam
-
General: Patient appears to be agitated, mejias, sweating, and restless
AAAxO3
Chest: Mild labored breathing
Abdomen: Minimal TTP and distension near RLQ.
Drain: Incision site is sore but is healing well. Drain output decreasing and fluid is serosanguineous.
Patient has a wylie catheter: No
Patient has a central line: No
[2025-03-06] MEDS: ROXICODONE 20 MG PO ×2 (09:45→13:43)
--- NOTE | 2025-03-06 11:18 | W.PN.GS2 ---
Today's Communication / Plan
-
-- DC today pending pain control
-- DC with GIAN in place and on PO antibotics
Assessment / Plan
-
59 y/o M who presented with acute cholecystitis now POD #5 s/p laparoscopic cholecystectomy w/ IOC with drainage of perihepatic abscess. Gangrenous cholecystitis noted intraoperatively with perihepatic infection and abscess pockets along the liver
capsule and potentially even a bit intrahepatic
AFVSS
Leukocytosis resolved
OR cx preliminary with enterococcus and ecoli (both pansensitive)
Pain control still an issue, challenging situation given his h/o chronic pain syndrome with prior suboxone/methadone use as an outpatient
Agitation has worsened, patient insists on DC today
Uncontrolled DM
Plan:
- DM diet
-- Discontinue IV analgesic, switch to oral analgesic (Oxycodone 20 mg PO Q3HPRN)
-- Diabetic management as per primary team
-- OOB/Ambulate
-- C/W GIAN drain for 5-10 days, anticipate will remain in place upon discharge
-- C/W IV ABX (on cx sensitive agent), anticipate. 2-week course of postoperative antibiotics with transition to Augmentin on d/c
-- DC instructions updated, f/u Dr. Ruiz
Subjective Data
-
Date of Service: March 06, 2025
Continued issues with pain. Episodes described as a intermittent stabbing sensation along his RIGHT abdomen and more centralized over his RIGHT lateral port site. No significant discomfort at rest. No nausea or vomiting. No fevers or chills.
Passing flatus and stool. Ambulating. Voiding.
Objective Data
-
Intake and Output
03/05/25 03/06/25 03/07/25
06:59 06:59 06:59
Intake Total 1640 / 1640 1160 / 1160
Output Total 585 / 585 1115 / 1115
Balance 1055 / 1055 45 / 45
Intake:
Oral fluids 1440 / 1440 960 / 960
IV fluids (Total) 100 / 100 100 / 100
IV piggybacks 100 / 100 100 / 100
Output:
Drain Output (Total)
Right Lower Abdomen
Urine, Wylie 550 / 550
Urine, Voided 1100 / 1100
Other:
Number of approximated SMALL 2 1
amounts of urine
Number of approximated MODERATE 3 2
amounts of urine
Vital Signs
Temp Pulse Resp BP Pulse Ox
98.4 F 74 16 137/93 97
03/06/25 07:45 03/06/25 11:16 03/06/25 11:16 03/06/25 08:26 03/06/25 11:16
Lab Results
03/05/25 07:18
03/05/25 07:18
Calcium 9.1 mg/dl (8.4-10.2) 03/05/25 07:18
Phosphorus 3.5 mg/dl (2.5-4.5) 03/05/25 07:18
Magnesium 2.0 mg/dl (1.6-2.3) 03/05/25 07:18
Total Bilirubin 1.2 mg/dl (0.2-1.3) 03/03/25 04:12
Direct Bilirubin 0.3 mg/dl (0.0-0.4) 03/01/25 06:00
AST 22 U/L (17-59) 03/03/25 04:12
ALT 36 U/L (0-50) 03/03/25 04:12
Alkaline Phosphatase 60 U/L (38-126) 03/03/25 04:12
Total Protein 5.4 g/dl (6.3-8.2) L 03/03/25 04:12
Albumin 2.9 g/dl (3.5-5.0) L 03/03/25 04:12
Physical Exam
-
Gen: NAD
Abd: soft, mild tenderness, ND, non-peritoneal, incisions c/d/i - no erythema, ecchymosis or drainage, GIAN seroupurulent (murky), non-bilious
Patient has a wylie catheter: No
Patient has a central line: No
[2025-03-06 12:15] LABS: Glucose - Point of Care 257 mg/dl (70-99)
[2025-03-06] MEDS: NOVOLOG FLEXPEN-MODERATE RESISTANCE 5 UNITS SC (12:18)
[2025-03-06] MEDS: LANTUS 0.18 UNITS SC (12:23)
--- NOTE | 2025-03-06 12:37 | W.PN.HOSP.TC ---
Today's Communication/Plan
-
dc to home
Assessment / Plan
Assessment / Plan
59y M with PMH significant for hypertension, DM-II and chronic pain / disability who presents to ED complaining of abdominal pain and weakness.
Acute gangrenous cholecystitis with localized peritonitis and perihepatic abscesses
Sepsis secondary to the above
- Patient presents with fever, tachycardia, tachypnea, leukocytosis and CT scan showing cholecystitis.
- Appreciate general surgery input, status post laparoscopic cholecystectomy with drain placement 03/01
- Continue drain care, adv to carb controlled diet. Pain meds increased by general surgery due to his tolerance from history of Suboxone use
as per patient, he stopped Suboxone 3 days prior to admission, contacted pharm, Naloxone t1/2 is 2-12 hrs, thusly should be out of system
- Intraoperative cultures growing pansensitive E. coli and Enterococcus, will change IV Zosyn to Augmentin at time of dc
- Drain will need to be maintained for 5-10 days postop, not necessarily will be removed at time of discharge
- Trend fever and white count
WBC 03/02 13.6-->03/03 10.8-->03/04 7.5-->03/05 8.6
had good BM post Relistor
Hyponatremia
- resolved, 135
Benign Hypertension
- BP improved w/ increased amlodipine to 10 mg daily
BP 130-159/73-86
DM-II with hyperglycemia
- Hemoglobin A1c 8.3
- Lantus and NovoLog increased, continue SSI
glu [id number]
Pt states takes Metformin 1000 mg bid and SSI coverage. Follows with Dr. Alexandre as outpt
COPD without Acute Exacerbation
- Stable at present. Duonebs 4 times daily, albuterol as needed
- Encourage smoking cessation. Left lung very congested, ?atelectasis, will check Chest X-Ray. Encourage use of IS
Anxiety / Depression
Chronic Pain Syndrome
Chronic Gait Dysfunction
- Off of all meds except for PRN Ativan which we will continue.
- Consider restarting buprenorphine for pain control prior to discharge if needed.
- PT recommends home PT
L Adrenal Incidentaloma
- Seen on CT.
- Further follow-up / evaluation as an outpatient after acute issues resolved
Obesity due to excess calories
- Affects all aspects of care
Cigarette nicotine dependency
- Cessation counseling has been provided, nicotine patch daily ordered
DVT Prophylaxis: Subcu Lovenox
Code Status: DNR
discussed with Dr. Lucia
dc now
see dictated note
More than 30 minutes spent in discharge including
Final examination of the patient
Summarizing hospital stay
Instructions for continuing care to all relevant caregivers
Preparation of discharge records, prescriptions, and referral forms
Total time spent (in minutes): 50
Anticipated Discharge: Today
Subjective/Interval History
-
Date of Service: March 06, 2025
Feels well and really wants to go home
Objective Data
-
Vital Signs:
Vital Signs
Temp Pulse Resp BP Pulse Ox
98.4 F 74 16 137/93 97
03/06/25 07:45 03/06/25 11:16 03/06/25 11:16 03/06/25 08:26 03/06/25 11:16
I&O
03/05/25 03/06/25 03/07/25
06:59 06:59 06:59
Intake Total 1640 / 1640 1160 / 1160
Output Total 585 / 585 1115 / 1115
Balance 1055 / 1055 45
Review of Systems
-
History Source: Patient and Physician
Constitutional: Denies Fever
EENT: Reports No Symptoms Reported
Respiratory: Denies Cough (resolved)
Cardiac: Reports No Symptoms
Abdomen/GI: Reports Abdominal Pain (has decreased, but not resolved)
Physical Exam
-
General: Well Developed, Well Nourished and No Apparent Distress
HEENT: Normocephalic, Atraumatic and Moist Mucous Membranes
Respiratory: Negative Rales (resolved) or Rhonchi (resolved)
Cardiac: Regular Rhythm and S1/S2
GI: Soft, Normal Bowel Sounds (have normalized), Tender (not resolved, but no longer tender to light pressure) and Other (drain); Negative Distended
Musculoskeletal: No Clubbing, No Cyanosis and No Edema
Skin: Warm and Dry
Neuro: Awake and Alert
--- NOTE | 2025-03-06 13:18 | W.DS.TRANS ---
DC Summary - Medicaid Billing Clerk
-
Discharge Instructions:
Discharge Diagnosis/Procedures S/p laparoscopic cholecystectomy
Diet Diabetic, Carb Controlled,Regular,Low Fat
Additional Diets If issues with bloating and cramping follow-up a
low fat diet
Activity No strenuous activity
Additional Activity Do not lift over 15lbs for the next 2-3 weeks
Driving Restrictions No driving if too sore or taking narcotics
Bathing Restrictions OK to Shower
Other Services VN
Wound Care Allow the glue to flake off your incisions on
its own over the next 2-3 weeks. Avoid scrubbing
or picking off.
Cover your drain site with a clean gauze
dressing and change daily. Ok to remove dressing
for showers. Follow up with your surgeon in the
next week for your drain to be removed.
Instructions: How to care for a closed suction drain
Stand-Alone Forms:
Changes to Home Medications: Yes
Discharge Medications:
DC Medications w/original date entered in [employer]
lorazepam 1 mg tablet 1 mg PO DAILYPRN PRN anxiety 03/11/23
albuterol sulfate 90 mcg/actuation aerosol inhaler 2 puff inhalation QID PRN SOB 03/02/25
budesonide-formoterol HFA 80 mcg-4.5 mcg/actuation aerosol inhaler (Symbicort) 2 puff inhalation BID 03/02/25
tiotropium bromide 1.25 mcg/actuation mist for inhalation (Spiriva Respimat) 2 puff inhalation DAILY 03/02/25
insulin lispro 100 unit/mL subcutaneous pen (Humalog KwikPen (U-100) Insulin) 1 sliding scale dose SC DIRECTED 03/05/25
metformin 1,000 mg tablet,extended release 24hr (osmotic) 1,000 mg PO BID 03/05/25
amlodipine 5 mg tablet (Norvasc) 5 mg PO DAILY #30 tabs 03/06/25
amoxicillin 875 mg-potassium clavulanate 125 mg tablet 1 tab PO Q12 antibiotic 10 days #20 tabs 03/06/25
oxycodone 20 mg tablet 20 mg PO Q3HPRN PRN severe pain 7 days #42 tabs 03/06/25
Home Medication Changes
Augmentin and Oxycodone as prescribed by Dr. Lucia
Of note, Norvasc is not new, was not listed on home medication list on admission
Pending Results: Yes (surgical pathology)
[2025-03-06 13:26] VITALS: BP 138/86
--- NOTE | 2025-03-06 14:31 | CM ---
Patient seen at bedside on 2 . Patient plan is for discharge home with caregiver and no needs anticipated. IMM completed and signed form placed on chart. CM will continue to follow for discharge planning needs.
Plan; home with caregiver; no other needs.
== END 2025-03-06 14:05 | disposition home or self-care (01) | DRG 853 ==
LOC: 2 SOUTH 14:02
PROVIDERS: Family Medicine; Registered Nurse; ADMITTING PHYSICIAN Hospitalist; ATTENDING PHYSICIAN Internal Medicine; CONSULT PHYSICIAN Surgery; EMERGENCY PHYSICIAN Emergency Medicine; FAMILY PHYSICIAN Family Medicine
PROC: BF131ZZ Fluoroscopy of Gallbladder and Bile Ducts using Low Osmolar Contrast (ICD-10-PCS; 2025-03-01)
PROC: 0F9040Z Drainage of Liver with Drainage Device, Percutaneous Endoscopic Approach (ICD-10-PCS; 2025-03-01)
PROC: 0FT44ZZ Resection of Gallbladder, Percutaneous Endoscopic Approach (ICD-10-PCS; 2025-03-01)
DX: A41.51 Sepsis due to Escherichia coli [E. coli] (principal); K65.8 Other peritonitis; K75.0 Abscess of liver; F11.20 Opioid dependence, uncomplicated; K80.00 Calculus of gallbladder with acute cholecystitis without obstruction; E87.1 Hypo-osmolality and hyponatremia; B95.2 Enterococcus as the cause of diseases classified elsewhere; K82.A1 Gangrene of gallbladder in cholecystitis; F41.9 Anxiety disorder, unspecified; J44.89 Other specified chronic obstructive pulmonary disease; K21.9 Gastro-esophageal reflux disease without esophagitis; I12.9 Hypertensive chronic kidney disease with stage 1 through stage 4 chronic kidney disease, or unspecified chronic kidney disease; N18.30 Chronic kidney disease, stage 3 unspecified; E11.65 Type 2 diabetes mellitus with hyperglycemia; E78.00 Pure hypercholesterolemia, unspecified; E11.22 Type 2 diabetes mellitus with diabetic chronic kidney disease; F17.200 Nicotine dependence, unspecified, uncomplicated; F32.A Depression, unspecified; F43.10 Post-traumatic stress disorder, unspecified; R26.89 Other abnormalities of gait and mobility; K59.00 Constipation, unspecified; E86.0 Dehydration; K76.0 Fatty (change of) liver, not elsewhere classified; E27.8 Other specified disorders of adrenal gland; E66.09 Other obesity due to excess calories; G89.4 Chronic pain syndrome; N40.0 Benign prostatic hyperplasia without lower urinary tract symptoms; E86.1 Hypovolemia; R45.1 Restlessness and agitation; Z60.2 Problems related to living alone; Z66 Do not resuscitate; Z79.84 Long term (current) use of oral hypoglycemic drugs; Z79.85 Long-term (current) use of injectable non-insulin antidiabetic drugs; Z91.148 Patient's other noncompliance with medication regimen for other reason; Z87.440 Personal history of urinary (tract) infections; Z87.01 Personal history of pneumonia (recurrent); Z87.820 Personal history of traumatic brain injury; Z86.19 Personal history of other infectious and parasitic diseases; Z88.8 Allergy status to other drugs, medicaments and biological substances; Z91.048 Other nonmedicinal substance allergy status; Z11.52 Encounter for screening for COVID-19; Z68.30 Body mass index [BMI] 30.0-30.9, adult; Z79.4 Long term (current) use of insulin
CPT/HCPCS: 71046; 74177; 74300; 76000; 80048; 80053; 80076; 81003; 81015; 82550; 82947; 82962; 83605; 83690; 83735; 84100; 85025; 85027; 87040; 87070; 87077; 87086; 87176; 87186; 87205; 87811; 88304; 93005; 94640; 96361; 96374; 97116; 97162; 99285; A4300; Q9967

== ENCOUNTER → 2025-03-26 17:14 | Outpatient (REF) | payer MEDICARE, OTHER, SELFPAY | LOC: RAD 17:14 | PROVIDERS: ATTENDING PHYSICIAN Nurse Practitioner Family | DX: R10.11 Right upper quadrant pain (principal); R06.02 Shortness of breath | CPT/HCPCS: 71046; 74019 ==

== ENCOUNTER → 2025-05-21 06:59 | Outpatient (REF) | payer MEDICARE, OTHER, SELFPAY ==
[2025-05-21 08:19] LABS: Hematocrit 46.7 % (39.0-52.0); Hemoglobin 16.5 g/dL (13.0-18.0); Mean Corp Hgb Conc. 35.3 g/dL (33.0-37.0); Mean Corpuscular Volume 85.1 fL (80.0-94.0); Nucleated Red Blood Cells % 0 % (-); Platelet Count 203 10^3/uL (130-400); Red Cell Dist. Width 13.7 % (11.5-14.5)
[2025-05-21 08:24] LABS: ALT (SGPT) 25 U/L (0-50); AST (SGOT) 17 U/L (17-59); Albumin 4.9 g/dl (3.5-5.0); Alkaline Phosphatase 82 U/L (38-126); Blood Urea Nitrogen 18 mg/dl (9-20); Calcium 10.4 mg/dl (8.4-10.2); Carbon Dioxide 23 mmol/L (22-30); Chloride 105 mmol/L (98-107); Glucose 150 mg/dl (70-99); HDL Cholesterol 38 mg/dl; LDL Cholesterol, Calculated 152 mg/dl; Potassium 4.6 mmol/L (3.5-5.1); Sodium 139 mmol/L (135-145); Total Protein 8.7 g/dl (6.3-8.2); Very Low Density Lipoprotein 54 mg/dl (0-30); eGFR > 60.00
[2025-05-21 11:12] LABS: Glycohemoglobin (HgbA1c) 7.2 % (4.0-5.6)
== END ==
LOC: REG 06:59
PROVIDERS: ATTENDING PHYSICIAN Physician Assistant; FAMILY PHYSICIAN Family Medicine
DX: E11.65 Type 2 diabetes mellitus with hyperglycemia (principal); E29.1 Testicular hypofunction
CPT/HCPCS: 36415; 80053; 80061; 83036; 84270; 84402; 84403; 85025